=== PATIENT | male | born 1955 | race Caucasian/White ===

== ENCOUNTER 2018-08-18 16:40 | Emergency (ER) | payer SELFPAY ==
[~2018-08-18] VITALS: Ht 175.3 cm; Wt 79.4 kg
[~2018-08-18 16:40] MED LIST: AMLO10TA6 PO; AMOX-358 PO; APIX5TAB2 PO; ASPI-892 PO; CLIN300C11 PO; IPRA3AMP31 INH; LISI10TA2 PO; METO25TA2 PO; NAPR1TAB25 PO; NAPR220T76 PO; NEBU1EAC10 MC; NEBU1EAC2 MC; OXYC-464 PO; RT-ALBUINH IH; Zolpidem Tartrate PO
--- OUTSIDE RECORDS SUMMARY | 2018-08-18 16:45 | XMS REPORT ---
Author Author BEA WAHL Organization [facility] Address [address] [place] [address] Care Team Providers Care Loom Doffer Name Role Phone BEA WAHL Unavailable PROBLEMS Type Condition ICD9-CM Code [id number] Code Onset Dates Condition Status SNOMED Code Problem Dupuytren's contracture of right hand M72.0 Active [id number] Problem Dupuytren contracture M72.0 Active 841200989 Problem Chronic atrial fibrillation I48.2 Active 385578329 Problem Alcoholism F10.20 Active 9805289 Problem Essential hypertension I10 Active 96919289 Problem Chronic obstructive pulmonary disease, unspecified COPD type J44.9 Active 84703897 ALLERGIES Substance Reaction Event Type Date Status Iodine rash Drug Allergy Jul, Active ENCOUNTERS Encounter Location Date Diagnosis [facility] [address] [place] [address] [phone] -[phone] Jul, [facility] [id number] [place] [address] 22893- 6692 December, Dupuytren's contracture of right hand M72.0 [facility] [address] [place] [address] 46856- 0150 Oct, Dupuytren's contracture of right hand M72.0 [facility] [address] [place] [address] 65303- 2438 Sep, Dupuytren contracture M72.0 [facility] [id number] [place] [address] 04549- 3071 Jul, [facility] [address] [place] [address] 95457- 5553 Jul, Essential hypertension I10 and Chronic obstructive pulmonary disease, unspecified COPD type J44.9 [facility] [address] [address] Jun, [facility] [id number] [place] [address] 55103 -3008 December, Essential hypertension with goal blood pressure less than 130/85 I10 ; Sore throat J02.9 ; Wheezing R06.2 and Pneumonia of right upper lobe due to infectious organism J18.1 [place] [id number] [place] [address] 29273- 1839 Apr, [place] [id number] [place] [address] 73825- 0110 Apr, Pulmonary emphysema, unspecified emphysema type J43.9 ; Essential hypertension with goal blood pressure less than 130/85 I10 and Tobacco abuse counseling Z71.6 [place] [id number] [place] [address] 15885- 6470 Apr, [facility] [id number] [place] [address] 76920- 6628 December, Chronic atrial fibrillation I48.2 ; Essential hypertension with goal blood pressure less than 130/85 I10 ; Alcoholism F10.20 ; Lung mass R91.8 and Chronic bronchitis, unspecified chronic bronchitis type J42 [place] [id number] [place] [address] 22463- 0954 Nov, [facility] [id number] [place] [address] 35232- 5921 Mar, Petechiae or ecchymoses 782.7 [place] [id number] [place] [address] 33066- 3520 Feb, Adjustment disorder with depressed mood 309.0 and No condition on [place] II V71.09 [place] [id number] [place] [address] 46160- 5090 Jan, Essential hypertension 401.9 ; Depression 311 and Anxiety 300.[address] [place] [address]- [address] 10 Jan, 2015 Major depressive disorder, recurrent episode, moderate 296.32 ; Anxiety state, unspecified 300.00 and Alcohol abuse 305.00 IMMUNIZATIONS No Known Immunizations SOCIAL HISTORY Never Assessed REASON FOR VISIT Right Shoulder Pain x3 weeks JStrasserRN PLAN OF CARE VITAL SIGNS Height 69.0 in 2018-07-12 Weight 185.0 lbs 2018-07-12 Temperature 97.7 degrees Fahrenheit 2018-07-12 Heart Rate 68 bpm 2018-07-12 Respiratory Rate 20 2018-07-12 BMI 27.32 kg/m2 2018-07-12 Blood pressure systolic 100 mmHg 2018-07-12 Blood pressure diastolic 64 mmHg 2018-07-12 MEDICATIONS Medication Instructions Dosage Frequency Start Date End Date Duration Status Lisinopril 10 mg Orally Once a day 1 tablet 24h Active Aleve 220 MG Orally 2 times a day 2 tablet as needed 12h Active Norvasc 10 mg Orally Once a day 1 tablet 24h Active RESULTS No Results PROCEDURES No Known procedures INSTRUCTIONS MEDICATIONS ADMINISTERED No Known Medications MEDICAL (GENERAL) HISTORY Type Description Date Medical History A-fib Medical History hypertension Medical History left ventricular hypertrophy Medical History palptiations Medical History history of alcoholism Medical History pneumonia Medical History COPD- Via VC Surgical History TKR ACL Surgical History Scoped right knee 1989 Surgical History cyst on tendon right wrist Hospitalization History attempted to committ sucide via alisa 09/2014 Hospitalization History Right middle upper lobe cavitary lesion with abscess ( 11/10/15-11/15/15) 11/10/2015 Hospitalization History COPD exacerbation, Hypoxia 05/01/2016
--- OUTSIDE RECORDS SUMMARY | 2018-08-18 16:45 | XMS REPORT ---
Author Author CASSIE HALL Organization [facility] Address [address] [place] [address] Care Team Providers Care Insurance Claims Assistant Name Role Phone CASSIE HALL Unavailable PROBLEMS Type Condition ICD9-CM Code KDF77-TB Code Onset Dates Condition Status SNOMED Code Problem Dupuytren's contracture of right hand M72.0 Active [id number] Problem Dupuytren contracture M72.0 Active 437357175 Problem Chronic atrial fibrillation I48.2 Active 935953990 Problem Alcoholism F10.20 Active 6800130 Problem Essential hypertension I10 Active 85588958 Problem Chronic obstructive pulmonary disease, unspecified COPD type J44.9 Active 92369604 ALLERGIES Substance Reaction Event Type Date Status Iodine rash Drug Allergy Oct, Active ENCOUNTERS Encounter Location Date Diagnosis [place] [id number] [place] [address] 84745- 2439 December, Dupuytren's contracture of right hand M72.0 [place] [id number] [place] [address] 08352- 8631 Oct, Dupuytren's contracture of right hand M72.0 [facility] [id number] [place] [address] 70756- 6995 Sep, Dupuytren contracture M72.0 [facility] [id number] [place] [address] 91496- 4417 Jul, [facility] [id number] [place] [address] 67377- 7151 Jul, Essential hypertension I10 and Chronic obstructive pulmonary disease, unspecified COPD type J44.9 [facility] [id number] [place] [address] 54119- 7423 Jun, [facility] [address] [address] December, Essential hypertension with goal blood pressure less than 130/85 I10 ; Sore throat J02.9 ; Wheezing R06.2 and Pneumonia of right upper lobe due to infectious organism J18.1 [facility] [id number] [place] [address] 61844- 4298 Apr, [place] [address] 93767- 3168 Apr, Pulmonary emphysema, unspecified emphysema type J43.9 ; Essential hypertension with goal blood pressure less than 130/85 I10 and Tobacco abuse counseling Z71.6 [place] [id number] [place] [address] 13491- 3095 Apr, [place] [id number] [place] [address] 14533- 8615 December, Chronic atrial fibrillation I48.2 ; Essential hypertension with goal blood pressure less than 130/85 I10 ; Alcoholism F10.20 ; Lung mass R91.8 and Chronic bronchitis, unspecified chronic bronchitis type J42 [place] [id number] [place] [address] 22735- 1885 Nov, [place] [id number] [place] [address] 40351- 3717 Mar, Petechiae or ecchymoses 782.7 [place] [address] 55267- 9811 Feb, Adjustment disorder with depressed mood 309.0 and No condition on [place] II V71.09 [place] [id number] [place] [address] 05534- 8437 Jan, Essential hypertension 401.9 ; Depression 311 and Anxiety 300.00 [place] [id number] [place] [address] 39996- 3894 Jan, Major depressive disorder, recurrent episode, moderate 296.32 ; Anxiety state, unspecified 300.00 and Alcohol abuse 305.00 IMMUNIZATIONS No Known Immunizations SOCIAL HISTORY Never Assessed REASON FOR VISIT Cyst removal f/u-----DBennettRN PLAN OF CARE VITAL SIGNS Height 69.0 in 2017-11-04 Weight 172 lbs 2017-11-04 Temperature 97.7 degrees Fahrenheit 2017-11-04 Heart Rate 80 bpm 2017-11-04 Respiratory Rate 20 2017-11-04 BMI 25.40 kg/m2 2017-11-04 Blood pressure systolic 102 mmHg 2017-11-04 Blood pressure diastolic 64 mmHg 2017-11-04 MEDICATIONS Medication Instructions Dosage Frequency Start Date End Date Duration Status Advair Diskus 500-50 MCG/DOSE Inhalation Twice a day 1 puff 12h Jul, Not-Taking Aleve 220 MG Orally 2 times a day 2 tablet as needed 12h Active Norvasc 10 mg Orally Once a day 1 tablet 24h Active Lisinopril 10 mg Orally Once a day 1 tablet 24h Active Ventolin HFA 108 (90 Base) MCG/ACT Inhalation every 6 hrs 2 puffs as needed 6h Jul, Not-Taking RESULTS No Results PROCEDURES No Known procedures [...]
--- OUTSIDE RECORDS SUMMARY | 2018-08-18 16:45 | XMS REPORT ---
Author Author LATOSHA VINCENT [facility] Address [address] [place] [address] Care Team Providers Care Clinical Documentation Clerk Name Role Phone LATOSHA VINCENT Unavailable PROBLEMS Type Condition ICD9-CM Code MPP41-PN Code Onset Dates Condition Status SNOMED Code Problem Chronic atrial fibrillation I48.2 Active 203317288 Problem Essential hypertension with goal blood pressure less than 130/85 I10 Active 39775748 Problem Alcoholism F10.20 Active 3754585 Problem Other iron deficiency anemia D50.8 Active 36053002 ALLERGIES Unknown Allergies SOCIAL HISTORY No smoking Hx information available PLAN OF CARE VITAL SIGNS MEDICATIONS Medication Instructions Dosage Frequency Start Date End Date Duration Status Lisinopril 10 mg Orally Once a day 1 tablet 24h Active Aleve 220 MG Orally 2 times a day 2 tablet as needed 12h Active Norvasc 10 mg Orally Once a day 1 tablet 24h Active RESULTS No Results PROCEDURES No Known procedures IMMUNIZATIONS No Known Immunizations
--- OUTSIDE RECORDS SUMMARY | 2018-08-18 16:45 | XMS REPORT ---
Author Author LEÓN TROTTER [facility] Address [address] [place] [address] Care Team Providers Care Manager Budget Name Role Phone LEÓN TROTTER Unavailable PROBLEMS Type Condition ICD9-CM Code ZHU13-UU Code Onset Dates Condition Status SNOMED Code Problem Dupuytren's contracture of right hand M72.0 Active 17465078173897809 Problem Dupuytren contracture M72.0 Active 749826992 Problem Chronic atrial fibrillation I48.2 Active 464677228 Problem Alcoholism F10.20 Active 4333804 Problem Essential hypertension I10 Active 98742454 Problem Chronic obstructive pulmonary disease, unspecified COPD type J44.9 Active 20091076 ALLERGIES No Information ENCOUNTERS Encounter Location Date Diagnosis [facility] [id number] [place] [address] 29731- 5812 December, Dupuytren's contracture of right hand M72.0 [facility] [id number] [place] [address] 66821- 2603 Oct, Dupuytren's contracture of right hand M72.0 [facility] [id number] [place] [address] 98656- 7394 Sep, Dupuytren contracture M72.0 [facility] [id number] [place] [address] 17058- 9898 Jul, [facility] [address] 78460- 5051 Jul, Essential hypertension I10 and Chronic obstructive pulmonary disease, unspecified COPD type J44.9 [facility] [id number] [place] [address] 82559- 5026 Jun, [facility] [address] [place] [address] December, Essential hypertension with goal blood pressure less than 130/85 I10 ; Sore throat J02.9 ; Wheezing R06.2 and Pneumonia of right upper lobe due to infectious organism J18.1 [place] [id number] [place] [address] 47257- 5831 Apr, [place] [address] 32680- 6067 Apr, Pulmonary emphysema, unspecified emphysema type J43.9 ; Essential hypertension with goal blood pressure less than 130/85 I10 and Tobacco abuse counseling Z71.6 [place] [id number] [place] [address] 69816- 8699 Apr, [place] [id number] [place] [address] 72732- 6377 December, Chronic atrial fibrillation I48.2 ; Essential hypertension with goal blood pressure less than 130/85 I10 ; Alcoholism F10.20 ; Lung mass R91.8 and Chronic bronchitis, unspecified chronic bronchitis type J42 [place] [id number] [place] [address] 42742- 5729 Nov, [place] [id number] [place] [address] 42070- 4985 Mar, Petechiae or ecchymoses 782.7 [place] [address] 95642- 8512 Feb, Adjustment disorder with depressed mood 309.0 and No condition on [place] II V71.09 [place] [id number] [place] [address] 54263- 1181 Jan, Essential hypertension 401.9 ; Depression 311 and Anxiety 300.00 [place] [id number] [place] [address] 22091- 8960 10 Jan, 2015 Major depressive disorder, recurrent episode, moderate 296.32 ; Anxiety state, unspecified 300.00 and Alcohol abuse 305.00 IMMUNIZATIONS No Known Immunizations SOCIAL HISTORY Never Assessed REASON FOR VISIT Dupuytren's Contracture of right hand-no manda Walls RN PLAN OF CARE Activity Details Follow Up prn Reason: VITAL SIGNS Height 69.0 in 2017-12-10 Blood pressure systolic 110 mmHg 2017-12-10 Blood pressure diastolic 68 mmHg 2017-12-10 MEDICATIONS Unknown Medications RESULTS No Results PROCEDURES No Known procedures [...]
--- OUTSIDE RECORDS SUMMARY | 2018-08-18 16:45 | XMS REPORT ---
Author Author CASSIE HALL Organization [facility] Address [address] [place] [address] Care Team Providers Care Group Segment Consultant Name Role Phone CASSIE HALL Unavailable PROBLEMS Type Condition ICD9-CM Code JAA93-XC Code Onset Dates Condition Status SNOMED Code Problem Dupuytren's contracture of right hand M72.0 Active 02703652466516019 Problem Dupuytren contracture M72.0 Active 484258577 Problem Chronic atrial fibrillation I48.2 Active 736109247 Problem Alcoholism F10.20 Active 8354878 Problem Essential hypertension I10 Active 63433508 Problem Chronic obstructive pulmonary disease, unspecified COPD type J44.9 Active 63982271 ALLERGIES Substance Reaction Event Type Date Status Iodine rash Drug Allergy Sep, Active ENCOUNTERS Encounter Location Date Diagnosis [place] [id number] [place] [address] 43821- 9811 December, Dupuytren's contracture of right hand M72.0 [place] [id number] [place] [address] 02609- 3673 Oct, Dupuytren's contracture of right hand M72.0 [facility] [id number] [place] [address] 47864- 9354 Sep, Dupuytren contracture M72.0 [facility] [id number] [place] [address] 60995- 2663 Jul, [facility] [id number] [place] [address] 04777- 4782 Jul, Essential hypertension I10 and Chronic obstructive pulmonary disease, unspecified COPD type J44.9 [facility] [id number] [place] [address] 84269- 6961 Jun, [facility] [address] [place] [address] 95006 -6260 December, Essential hypertension with goal blood pressure less than 130/85 I10 ; Sore throat J02.9 ; Wheezing R06.2 and Pneumonia of right upper lobe due to infectious organism J18.1 [facility] [address] [place] [address] 80807- 3297 Apr, [place] [address] 91285- 0182 Apr, Pulmonary emphysema, unspecified emphysema type J43.9 ; Essential hypertension with goal blood pressure less than 130/85 I10 and Tobacco abuse counseling Z71.6 [place] [address] [place] [address] 23706- 2171 Apr, [place] [address] [place] [address] 42089- 6332 December, Chronic atrial fibrillation I48.2 ; Essential hypertension with goal blood pressure less than 130/85 I10 ; Alcoholism F10.20 ; Lung mass R91.8 and Chronic bronchitis, unspecified chronic bronchitis type J42 [place] [address] [place] [address] 69730- 0265 Nov, [place] [address] [place] [address] 06031- 0022 Mar, Petechiae or ecchymoses 782.7 [place] [address] 41235- 8005 Feb, Adjustment disorder with depressed mood 309.0 and No condition on [place] II V71.[address] 13435- 5468 Jan, Essential hypertension 401.9 ; Depression 311 and Anxiety 300.00 [place] [address] [place] [address] 60098- 3512 Jan, Major depressive disorder, recurrent episode, moderate 296.32 ; Anxiety state, unspecified 300.00 and Alcohol abuse 305.00 IMMUNIZATIONS No Known Immunizations SOCIAL HISTORY Never Assessed REASON FOR VISIT Cyst removal x2 from the right hand-Olaf MARTIN PLAN OF CARE Activity Details Follow Up 4 Weeks Reason:contracture injection VITAL SIGNS Height 69.0 in 2017-09-22 Weight 171.6 lbs 2017-09-22 Temperature 98.1 degrees Fahrenheit 2017-09-22 Heart Rate 78 bpm 2017-09-22 Respiratory Rate 20 2017-09-22 BMI 25.34 kg/m2 2017-09-22 Blood pressure systolic 98 mmHg 2017-09-22 Blood pressure diastolic 62 mmHg 2017-09-22 MEDICATIONS Medication Instructions Dosage Frequency Start Date End Date Duration Status Ventolin HFA 108 (90 Base) MCG/ACT Inhalation every 6 hrs 2 puffs as needed 6h Jul, Not-Taking Aleve 220 MG Orally 2 times a day 2 tablet as needed 12h Active Lisinopril 10 mg Orally Once a day 1 tablet 24h Active Norvasc 10 mg Orally Once a day 1 tablet 24h Active Advair Diskus 500-50 MCG/DOSE Inhalation Twice a day 1 puff 12h Jul, Not-Taking RESULTS No Results PROCEDURES No [...]
--- OUTSIDE RECORDS SUMMARY | 2018-08-18 16:46 | XMS REPORT ---
Author Author BEA WAHL Organization [facility] Address [address] [place] [address] Care Team Providers Care Hat Blocking Machine Operator Name Role Phone BEA WAHL Unavailable PROBLEMS Type Condition ICD9-CM Code GAE46-LB Code Onset Dates Condition Status SNOMED Code Problem Dupuytren's contracture of right hand M72.0 Active 53461401399192319 Problem Dupuytren contracture M72.0 Active 578542189 Problem Chronic atrial fibrillation I48.2 Active 464057212 Problem Alcoholism F10.20 Active 3444041 Problem Essential hypertension I10 Active 84343646 Problem Chronic obstructive pulmonary disease, unspecified COPD type J44.9 Active 98345450 ALLERGIES Substance Reaction Event Type Date Status Iodine rash Drug Allergy Jul, Active ENCOUNTERS Encounter Location Date Diagnosis [place] [id number] [place] [address] 62531- 0286 December, Dupuytren's contracture of right hand M72.0 [facility] [id number] [place] [address] 66849- 1455 Oct, Dupuytren's contracture of right hand M72.0 [facility] [id number] [place] [address] 48939- 6466 Sep, Dupuytren contracture M72.0 [facility] [address] [place] [address] 99210- 5524 Jul, [facility] [id number] [place] [address] 50728- 0194 Jul, Essential hypertension I10 and Chronic obstructive pulmonary disease, unspecified COPD type J44.9 [facility] [id number] [place] [address] 98839- 5990 Jun, [facility] [address] [place] [address] 96997 -0118 December, Essential hypertension with goal blood pressure less than 130/85 I10 ; Sore throat J02.9 ; Wheezing R06.2 and Pneumonia of right upper lobe due to infectious organism J18.1 [facility] [id number] [place] [address] 99748- 9893 Apr, [place] [address] 32999- 8681 Apr, Pulmonary emphysema, unspecified emphysema type J43.9 ; Essential hypertension with goal blood pressure less than 130/85 I10 and Tobacco abuse counseling Z71.6 [place] [id number] [place] [address] 67612- 9680 Apr, [place] [address] 74428- 8788 December, Chronic atrial fibrillation I48.2 ; Essential hypertension with goal blood pressure less than 130/85 I10 ; Alcoholism F10.20 ; Lung mass R91.8 and Chronic bronchitis, unspecified chronic bronchitis type J42 [place] [id number] [place] [address] 14956- 6323 Nov, [place] [id number] [place] [address] 18968- 8616 Mar, Petechiae or ecchymoses 782.7 [place] [id number] [place] [address] 22051- 8425 Feb, Adjustment disorder with depressed mood 309.0 and No condition on [address] V71.[address] 83098- 0297 Jan, Essential hypertension 401.9 ; Depression 311 and Anxiety 300.00 [place] [id number] [place] [address] 92103- 2717 Jan, Major depressive disorder, recurrent episode, moderate 296.32 ; Anxiety state, unspecified 300.00 and Alcohol abuse 305.00 IMMUNIZATIONS No Known Immunizations SOCIAL HISTORY Never Assessed REASON FOR VISIT Transition of Care-Olaf MARTIN, PT is in need of medication refills and PT has a cyst on his right pinky PLAN OF CARE Activity Details Follow Up 4 Months Reason: VITAL SIGNS Height 69.0 in 2017-07-23 Weight 175.5 lbs 2017-07-23 Temperature 98.3 degrees Fahrenheit 2017-07-23 Heart Rate 88 bpm 2017-07-23 Respiratory Rate 20 2017-07-23 BMI 25.91 kg/m2 2017-07-23 Blood pressure systolic 124 mmHg 2017-07-23 Blood pressure diastolic 96 mmHg 2017-07-23 MEDICATIONS Medication Instructions Dosage Frequency Start Date End Date Duration Status Aleve 220 MG Orally 2 times a day 2 tablet as needed 12h Active Lisinopril 10 mg Orally Once a day 1 tablet 24h Active Norvasc 10 mg Orally Once a day 1 tablet 24h Active RESULTS No Results PROCEDURES Procedure Date Ordered Result Body Site COMPREHEN METABOLIC PANEL Jul 23, 2017 VENIPUNCT, ROUTINE* Jul 23, 2017 INSTRUCTIONS MEDICATIONS ADMINISTERED No Known Medications MEDICAL [...]
--- OUTSIDE RECORDS SUMMARY | 2018-08-18 16:46 | XMS REPORT ---
Author Author POLI Smith Organization [facility] Address [address] [place] [address] Care Team Providers Care Realtime Captioner Name Role Phone herbertADIEL POLI Unavailable PROBLEMS Type Condition ICD9-CM Code [id number] Code Onset Dates Condition Status SNOMED Code Problem Dupuytren's contracture of right hand M72.0 Active 70534066075581651 Problem Dupuytren contracture M72.0 Active 248930913 Problem Chronic atrial fibrillation I48.2 Active 126015073 Problem Alcoholism F10.20 Active 0113311 Problem Essential hypertension I10 Active 67136665 Problem Chronic obstructive pulmonary disease, unspecified COPD type J44.9 Active 54309243 ALLERGIES No Information ENCOUNTERS Encounter Location Date Diagnosis [place] [id number] [place] [phone] December, Dupuytren's contracture of right hand M72.0 [place] [id number] [place] [address]64- 1838 Oct, Dupuytren's contracture of right hand M72.0 [facility] [id number] [place] [address] 31996- 50[address] Sep, Dupuytren contracture M72.0 [facility] [id number] [place] [address]70- 1208 Jul, [facility] [id number] [place] [address] 09053- 3606 Jul, Essential hypertension I10 and Chronic obstructive pulmonary disease, unspecified COPD type J44.9 [facility] [id number] [place] [address] 25749- 9545 Jun, [facility] [address] [place] [address] December, Essential hypertension with goal blood pressure less than 130/85 I10 ; Sore throat J02.9 ; Wheezing R06.2 and Pneumonia of right upper lobe due to infectious organism J18.1 [facility] [id number] [place] [address] 98303- 6791 Apr, [place] [address] [address] Apr, Pulmonary emphysema, unspecified emphysema type J43.9 ; Essential hypertension with goal blood pressure less than 130/85 I10 and Tobacco abuse counseling Z71.6 [place] [id number] [place] [address] 44597- 4202 Apr, [place] [id number] [place] [address] 13452- 7646 December, Chronic atrial fibrillation I48.2 ; Essential hypertension with goal blood pressure less than 130/85 I10 ; Alcoholism F10.20 ; Lung mass R91.8 and Chronic bronchitis, unspecified chronic bronchitis type J42 [place] [id number] [place] [address] 09420- 2853 Nov, [place] [id number] [place] [address] 59901- 5493 Mar, Petechiae or ecchymoses 782.7 [place] [address] [address] Feb, Adjustment disorder with depressed mood 309.0 and No condition on [place] II V71.09 [place] [id number] [place] [address] 29289- 5903 Jan, Essential hypertension 401.9 ; Depression 311 and Anxiety 300.00 [place] [id number] [place] [address] 39799- 3277 Jan, Major depressive disorder, recurrent episode, moderate 296.32 ; Anxiety state, unspecified 300.00 and Alcohol abuse 305.00 IMMUNIZATIONS No Known Immunizations SOCIAL HISTORY Never Assessed REASON FOR VISIT Oxygen PLAN OF CARE VITAL SIGNS MEDICATIONS Unknown Medications RESULTS No Results PROCEDURES [...]
--- OUTSIDE RECORDS SUMMARY | 2018-08-18 16:46 | XMS REPORT ---
Author Author LATOSHA VINCENT [facility] Address [address] [place] [address] Care Team Providers Care Box Folding Machine Operator Name Role Phone LATOSHA VINCENT Unavailable PROBLEMS Type Condition ICD9-CM Code [id number] Code Onset Dates Condition Status SNOMED Code Problem Chronic atrial fibrillation I48.2 Active 754886208 Problem Essential hypertension with goal blood pressure less than 130/85 I10 Active 10121745 Problem Alcoholism F10.20 Active 8754379 Problem Other iron deficiency anemia D50.8 Active 93505801 ALLERGIES Unknown Allergies SOCIAL HISTORY No smoking Hx information available PLAN OF CARE VITAL SIGNS MEDICATIONS Unknown Medications RESULTS No Results PROCEDURES No Known procedures IMMUNIZATIONS No Known Immunizations
--- OUTSIDE RECORDS SUMMARY | 2018-08-18 16:46 | XMS REPORT ---
Author BEA Ortiz Organization [employer] Address Unknown Phone Unavailable Care Team Providers Care Linderman Machine Operator Name Role Phone BEA WAHL CP Unavailable Allergies, Adverse Reactions, Alerts Substance Reaction Event Type Iodine rash Drug Allergy Problems Problem Type Condition ICD-9 Code Onset Dates Condition Status Problem Essential hypertension 401.9 Active Problem Malignant essential hypertension 401.0 Active Problem Benign essential hypertension 401.1 Active Assessment Petechiae or ecchymoses 782.7 Active Medications Medication Code System Code Instructions Start Date End Date Status Dosage Norvasc [facility] [address]-24 10 MG Orally Once a day 1 tablet Aleve [facility] [address]-17 220 MG Orally prn 1 tablet as needed Lisinopril [facility] [address]-34 10 MG Orally Once a day 1 tablet Tramadol HCl [facility] [address]-88 50 MG Orally every 6 hrs Apr 06, 2015 1-2 Procedures Procedure Coding System Code Date Office Visit, Est Pt., Level 2 CPT-4 12118 Apr 06, 2015 Vital Signs Date/Time: Apr 06, 2015 Temperature 98.8 F Weight 161.1 lbs Height 69.0 in BMI 23.79 Index Blood Pressure Diastolic 84 mmHg Blood Pressure Systolic 140 mmHg Cardiac Monitoring Heart Rate 68 bpm Results No Known Results Summary Purpose [employer] Submission
--- OUTSIDE RECORDS SUMMARY | 2018-08-18 16:46 | XMS REPORT ---
Author POLI Guerra [facility] [employer] Address Unknown Phone Unavailable Care Team Providers Care Space Technologist Name Role Phone POLI CHIN Unavailable Allergies No Known Allergies Problems Problem Type Condition Code Onset Dates Condition Status Problem Essential hypertension 401.9 Active Problem Malignant essential hypertension 401.0 Active Problem Benign essential hypertension 401.1 Active Medications Medication Code System Code Instructions Start Date End Date Status Dosage Nebulizer/Adult Mask [facility] [address] November 15, 2015 not defined Oxycodone-Acetaminophen [facility] [address]-82 7.5-325 MG Orally every 4 hrs November 15, 2015 1 tablet as needed Aleve [facility] [address]-35 220 MG Orally 2 times a day 2 tablet as needed Ipratropium-Albuterol [facility] [address]-96 0.5-2.5 (3) MG/3ML Inhalation 3 times a day November 15, 2015 3 ml Clindamycin HCl [facility] [address]-18 300 MG Orally 3 times a day for 5 weeks November 15, 2015 1 capsule Results No Known Results Summary Purpose [employer] Submission
--- OUTSIDE RECORDS SUMMARY | 2018-08-18 16:46 | XMS REPORT ---
Author Author BEA WAHL Organization [facility] Address [address] [place] [address] Care Team Providers Care Cafe Site Attendant Name Role Phone BEA WAHL Unavailable PROBLEMS Type Condition ICD9-CM Code [id number] Code Onset Dates Condition Status SNOMED Code Problem Dupuytren's contracture of right hand M72.0 Active [id number] Problem Dupuytren contracture M72.0 Active 917474939 Problem Chronic atrial fibrillation I48.2 Active 440621472 Problem Alcoholism F10.20 Active 4844333 Problem Essential hypertension I10 Active 87836691 Problem Chronic obstructive pulmonary disease, unspecified COPD type J44.9 Active 45293825 ALLERGIES No Information ENCOUNTERS Encounter Location Date Diagnosis [facility] [id number] [place] [address]01[address] December, Dupuytren's contracture of right hand M72.0 [facility] [id number] [place] [address] 40915- 2373 Oct, Dupuytren's contracture of right hand M72.0 [facility] [id number] [place] [address] 01471- 4526 Sep, Dupuytren contracture M72.0 [facility] [id number] [place] [address] 66689- 9533 Jul, [facility] [address] [address] Jul, Essential hypertension I10 and Chronic obstructive pulmonary disease, unspecified COPD type J44.9 [facility] [id number] [place] [address] 50[address]- [address] Jun, [facility] [address] [place] [address] December, Essential hypertension with goal blood pressure less than 130/85 I10 ; Sore throat J02.9 ; Wheezing R06.2 and Pneumonia of right upper lobe due to infectious organism J18.1 [place] [id number] [place] [address] 03081- 3096 Apr, [place] [address] [address] Apr, Pulmonary emphysema, unspecified emphysema type J43.9 ; Essential hypertension with goal blood pressure less than 130/85 I10 and Tobacco abuse counseling Z71.6 [place] [id number] [place] [address] 46360- 0951 Apr, [place] [id number] [place] [address] 94133- 3208 December, Chronic atrial fibrillation I48.2 ; Essential hypertension with goal blood pressure less than 130/85 I10 ; Alcoholism F10.20 ; Lung mass R91.8 and Chronic bronchitis, unspecified chronic bronchitis type J42 [place] [id number] [place] [address] 68267- [address] Nov, [place] [id number] [place] [address] 87033- [address] Mar, Petechiae or ecchymoses 782.7 [place] [address] [address]- [address] Feb, Adjustment disorder with depressed mood 309.0 and No condition on [place] II V71.09 [place] [id number] [place] [address] 16638- 4038 Jan, Essential hypertension 401.9 ; Depression 311 and Anxiety 300.00 [place] [id number] [place] [address] 60203- 7[address] 10 Jan, 2015 Major depressive disorder, recurrent episode, moderate 296.32 ; Anxiety state, unspecified 300.00 and Alcohol abuse 305.00 IMMUNIZATIONS No Known Immunizations SOCIAL HISTORY Never Assessed REASON FOR VISIT Pals PLAN OF CARE VITAL SIGNS MEDICATIONS Medication Instructions Dosage Frequency Start Date End Date Duration Status Ventolin HFA 108 (90 Base) MCG/ACT Inhalation every 6 hrs 2 puffs as needed 6h Jul, Active Advair Diskus 500-50 MCG/DOSE Inhalation Twice a day 1 puff 12h Jul, Active RESULTS No Results PROCEDURES No Known [...]
--- OUTSIDE RECORDS SUMMARY | 2018-08-18 16:46 | XMS REPORT ---
Author Author AFIA ONEILL Organization [facility] Address [address] [place] [address] Care Team Providers Care Accounting Representative Name Role Phone AFIA ONEILL Unavailable PROBLEMS Type Condition ICD9-CM Code [id number] Code Onset Dates Condition Status SNOMED Code Problem Chronic atrial fibrillation I48.2 Active 651726989 Problem Essential hypertension with goal blood pressure less than 130/85 I10 Active 44737355 Assessment Pulmonary emphysema, unspecified emphysema type J43.9 Apr, Active 75353084 Assessment Tobacco abuse counseling Z71.6 Apr, Active 314030726 Problem Alcoholism F10.20 Active 2205333 Problem Other iron deficiency anemia D50.8 Active 78359133 ALLERGIES Substance Reaction Event Type Date Status Iodine rash Drug Allergy Apr, Active SOCIAL HISTORY No smoking Hx information available PLAN OF CARE VITAL SIGNS Height 69.0 in 2016-05-05 Weight 162.0 lbs 2016-05-05 Heart Rate 92 bpm 2016-05-05 Respiratory Rate 22 2016-05-05 Oximetry 95 % 2016-05-05 BMI 23.92 kg/m2 2016-05-05 Blood pressure systolic 150 mmHg 2016-05-05 Blood pressure diastolic 94 mmHg 2016-05-05 MEDICATIONS Medication Instructions Dosage Frequency Start Date End Date Duration Status Lisinopril 10 mg Orally Once a day 1 tablet 24h Active Aleve 220 MG Orally 2 times a day 2 tablet as needed 12h Active Norvasc 10 mg Orally Once a day 1 tablet 24h Active RESULTS No Results PROCEDURES Procedure Date Ordered Related Diagnosis Body Site Office Visit, Est Pt., Level 4 May 05, 2016 MEASURE BLOOD OXYGEN LEVEL May 05, 2016 IMMUNIZATIONS No Known Immunizations
--- OUTSIDE RECORDS SUMMARY | 2018-08-18 16:46 | XMS REPORT ---
Author Author SHIRLEY GARCIA Organization [facility] Address [address] [place] [address] Care Team Providers Care Souvenir And Novelty Maker Name Role Phone SHIRLEY GARCIA Unavailable PROBLEMS Type Condition ICD9-CM Code MJS74-SM Code Onset Dates Condition Status SNOMED Code Problem Chronic atrial fibrillation I48.2 Active 375283256 Problem Alcoholism F10.20 Active 7511610 Problem Other iron deficiency anemia D50.8 Active 62871599 Problem Essential hypertension with goal blood pressure less than 130/85 I10 Active 81114277 ALLERGIES Substance Reaction Event Type Date Status Iodine rash Drug Allergy December, Active SOCIAL HISTORY Never Assessed PLAN OF CARE Activity Details Follow Up prn Reason: Future/Pending Procedure NEBULIZER TREATMENT VITAL SIGNS Height 69.0 in 2016-12-30 Weight 178.2 lbs 2016-12-30 Temperature 97.5 degrees Fahrenheit 2016-12-30 Heart Rate 96 bpm 2016-12-30 Respiratory Rate 22 2016-12-30 Oximetry on 2.5L N/C:95 % 2016-12-30 BMI 26.31 kg/m2 2016-12-30 Blood pressure systolic 156 mmHg 2016-12-30 Blood pressure diastolic 94 mmHg 2016-12-30 MEDICATIONS Medication Instructions Dosage Frequency Start Date End Date Duration Status Levofloxacin 750 MG Orally Once a day 1 tablet 24h December, December, 7 days Active PredniSONE 20 MG Orally Once a day starting tomorrow 3 tablets x 3 days, 2 tablets x 3 days, 1 tablet x 3 days, 1/2 tablet x 4 days 24h December, Jan, 13 days Active Norvasc 10 mg Orally Once a day 1 tablet 24h Active Lisinopril 10 mg Orally Once a day 1 tablet 24h Active Aleve 220 MG Orally 2 times a day 2 tablet as needed 12h Active RESULTS Name Result Date Reference Range STREP A (IN HOUSE) 2017-02-05 STREP A negative Control + Lot # [id number] Exp date aug 28 Xray : Chest (IN HOUSE) 2016-12-30 PROCEDURES Procedure Date Ordered Result Body Site MEASURE BLOOD OXYGEN LEVEL December 30, 2016 CHEST X-RAY December 30, 2016 SOLUMEDROL (UP TO 125 MG) December 30, 2016 NEB/MDI RX INITIAL December 30, 2016 STREP A ASSAY W/OPTIC December 30, 2016 THER/PROPH/DIAG INJ, SC/IM December 30, 2016 IMMUNIZATIONS Vaccine Route Administration Date Status SOLUMEDROL (UP TO 125 MG) IM Intramuscular December 30, 2016 Administered MEDICAL (GENERAL) HISTORY Type Description Date Medical History A-fib Medical History hypertension Medical History left ventricular hypertrophy Medical History palptiations Medical History history of alcoholism Medical History pneumonia Surgical History TKR ACL 1969' Surgical History Scoped right knee 1989 Surgical History cyst on tendon right wrist Hospitalization History attempted to committ sucide via alisa 09/2014 Hospitalization History Right middle upper lobe cavitary lesion with abscess ( 11/10/15-11/15/15) 11/10/2015 Hospitalization History COPD exacerbation, Hypoxia 05/01/2016
--- OUTSIDE RECORDS SUMMARY | 2018-08-18 16:47 | XMS REPORT | Continuity of Care Document ---
Author Author [facility] Organization [facility] Address Unknown Phone Unavailable Allergies Active Description Code Type Severity Reaction Onset Reported/Identified Relationship to Patient Clinical Status Yes iodine [id number] Drug Allergy Unknown N/A 09/25/2005 Medications There is no data. Problems Date Dx Coded Attending Type Code Diagnosis Diagnosed By 2013 GLORIA PRADO Ot 805.00 FX CERVICAL VERT NOS-CL 2013 GLORIA PRADO Ot 850.5 CONCUSSION W COMA NOS 2013 GLORIA PRADO Ot 959.01 HEAD INJURY, NOS 2013 GLORIA PRADO Ot E000.8 OTHER EXTERNAL CAUSE STATUS 2013 GLORIA PRADO Ot E849.0 ACCIDENT IN HOME 2013 GLORIA PRADO Ot E888.9 FALL NOS 06/16/2014 BRANDEN BANDA MD Ot 303.91 ALCOH DEP NEC/NOS-CONTIN 06/16/2014 BRANDEN BANDA MD Ot 305.1 TOBACCO USE DISORDER 06/16/2014 BRANDEN BANDA MD Ot 397.0 TRICUSPID VALVE DISEASE 06/16/2014 BRANDEN BANDA MD Ot 401.9 HYPERTENSION NOS 06/16/2014 BRANDEN BANDA MD Ot 412 OLD MYOCARDIAL INFARCT 06/16/2014 BRANDEN BANDA MD Ot 414.01 CORONARY ATHEROSCLEROSIS OF [place] CORON 06/16/2014 BRANDEN BANDA MD Ot 424.0 MITRAL VALVE DISORDER 06/16/2014 BRANDEN BANDA MD Ot 427.31 ATRIAL FIBRILLATION 06/16/2014 BRANDEN BANDA MD Ot 716.90 ARTHROPATHY NOS-UNSPEC 06/16/2014 BRANDEN BANDA MD Ot 785.0 TACHYCARDIA NOS 06/16/2014 BRANDEN BANDA MD Ot 786.50 CHEST PAIN NOS 06/16/2014 BRANDEN BANDA MD Ot 799.02 HYPOXEMIA 07/31/2014 BRANDEN BANDA MD Ot 427.31 07/31/2014 BRANDEN BANDA MD Ot 785.1 07/31/2014 BRANDEN BANDA MD Ot 786.50 10/03/2014 Ot 305.1 TOBACCO USE DISORDER 10/03/2014 Ot 424.0 MITRAL VALVE DISORDER 10/03/2014 Ot 426.2 LEFT BB HEMIBLOCK 10/03/2014 Ot 427.89 CARDIAC DYSRHYTHMIAS NEC 10/03/2014 Ot 493.90 ASTHMA, UNSPECIFIED 10/03/2014 Ot 780.09 OTHER ALTERATION OF CONSCIOUSNESS 10/03/2014 Ot 963.0 POIS- ANTIALLRG/ANTIEMET 10/03/2014 Ot 980.0 TOXIC EFF ETHYL ALCOHOL 10/03/2014 Ot E950.4 SUICIDE-DRUG /MEDICIN NEC 10/03/2014 Ot E950.9 SUICIDE- SOLID/LIQUID NEC 09/13/2015 BRANDEN BANDA MD Ot 427.31 09/13/2015 BRANDEN BANDA MD Ot 785.1 09/13/2015 BRANDEN BANDA MD Ot 786.50 11/12/2015 BRANDEN BANDA MD Ot 427.31 11/12/2015 BRANDEN BANDA MD Ot 785.1 11/12/2015 BRANDEN BANDA MD Ot 786.50 11/12/2015 JORDANA HUNT, TELL B Ot R05 11/12/2015 GILLESPIE DO, CATARINA Ot D64.9 11/12/2015 GILLESPIE DO, CATARINA Ot E46 11/12/2015 GILLESPIE DO, CATARINA Ot E87.1 11/12/2015 GILLESPIE DO, CATARINA Ot F17.210 11/12/2015 GILLESPIE DO, CATARINA Ot I34.1 11/12/2015 GILLESPIE DO, CATARINA Ot J45.909 11/12/2015 GILLESPIE DO, CATARINA Ot R91.1 11/13/2015 GILLESPIE DO, CATARINA Ot D64.9 11/13/2015 GILLESPIE DO, CATARINA Ot E46 11/13/2015 GILLESPIE DO, CATARINA Ot E87.1 11/13/2015 GILLESPIE DO, CATARINA Ot F17.210 11/13/2015 GILLESPIE DO, CATARINA Ot I34.1 11/13/2015 GILLESPIE DO, CATARINA Ot J45.909 11/13/2015 GILLESPIE DO, CATARINA Ot R91.1 11/13/2015 GILLESPIE DO, CATARINA Ot D64.9 11/13/2015 GILLESPIE DO, CATARINA Ot E46 11/13/2015 GILLESPIE DO, CATARINA Ot E87.1 11/13/2015 GILLESPIE DO, CATARINA Ot F17.210 11/13/2015 GILLESPIE DO CATARINA Ot I34.1 11/13/2015 GILLESPIE DO CATARINA Ot J45.909 11/13/2015 GILLESPIE DO, CATARINA Ot R91.1 11/14/2015 GILLESPIE DO, CATARINA Ot D64.9 11/14/2015 GILLESPIE DO CATARINA Ot E46 11/14/2015 GILLESPIE DO CATARINA Ot E87.1 11/14/2015 GILLESPIE DO CATARINA Ot F17.210 11/14/2015 GILLESPIE DO CATARINA Ot I34.1 11/14/2015 GILLESPIE DO CATARINA Ot J45.909 11/14/2015 GILLESPIE DO CATARINA Ot R91.1 11/14/2015 GILLESPIE DO CATARINA Ot D64.9 ANEMIA, UNSPECIFIED 11/14/2015 GLILESPIE DO CATARINA Ot E46 UNSPECIFIED PROTEIN-CALORIE MALNUTRITION 11/14/2015 JOSE MIGUEL FERNANDEZ CATARINA Ot E87.1 HYPO-OSMOLALITY AND HYPONATREMIA 11/14/2015 JOSE MIGUEL FERNANDEZ CATARINA Ot F17.210 NICOTINE DEPENDENCE, CIGARETTES, UNCOMPL 11/14/2015 JOSE MIGUEL FERNANDEZ CATARINA Ot I34.1 NONRHEUMATIC MITRAL (VALVE) PROLAPSE 11/14/2015 JOSE MIGUEL FERNANDEZ CATARINA Ot J45.909 UNSPECIFIED ASTHMA, UNCOMPLICATED 11/14/2015 JOSE MIGUEL FERNANDEZ CATARINA Ot J85.2 ABSCESS OF LUNG WITHOUT PNEUMONIA 11/14/2015 DMITRY GILLESPIE DOI Ot K04.7 PERIAPICAL ABSCESS WITHOUT SINUS 11/14/2015 DMITRY GILLESPIE DOI Ot R06.00 DYSPNEA, UNSPECIFIED 11/14/2015 JOSE MIGUEL FERNANDEZ CATARINA Ot R91.1 12/05/2015 SHIRA LOPEZ DO Ot F17.200 NICOTINE DEPENDENCE, UNSPECIFIED, UNCOMP 12/05/2015 SHIRA LOPEZ DO Ot J15.8 PNEUMONIA DUE TO OTHER SPECIFIED BACTERI 12/05/2015 JESSICA SHIRA FERNANDEZ Ot J85.2 ABSCESS OF LUNG WITHOUT PNEUMONIA 12/05/2015 SHIRA LOPEZ DO Ot R06.00 DYSPNEA, UNSPECIFIED 12/10/2015 SHIRA LOPEZ DO Ot F17.200 NICOTINE DEPENDENCE, UNSPECIFIED, UNCOMP 12/10/2015 JESSICA DO SHIRA Matt Ot J15.8 PNEUMONIA DUE TO OTHER SPECIFIED BACTERI 12/10/2015 SHIRA LOPEZ DO Ot J85.2 ABSCESS OF LUNG WITHOUT PNEUMONIA 12/10/2015 SHIRA LOPEZ DO Ot R06.00 DYSPNEA, UNSPECIFIED 04/08/2016 SOLO HUNT, BRANDEN Jose Ot 427.31 ATRIAL FIBRILLATION 04/08/2016 BRANDEN BANDA MD Ot 785.1 PALPITATIONS 04/08/2016 BRANDEN BANDA MD Ot 786.50 CHEST PAIN NOS 04/08/2016 JORDANA HUNT, TELL B Ot R05 COUGH 04/08/2016 SHIRA LOPEZ DO Ot F17.200 NICOTINE DEPENDENCE, UNSPECIFIED, UNCOMP 04/08/2016 SHIRA LOPEZ DO Ot J15.8 PNEUMONIA DUE TO OTHER SPECIFIED BACTERI 04/08/2016 SHIRA LOPEZ DO Ot J85.2 ABSCESS OF LUNG WITHOUT PNEUMONIA 04/08/2016 SHIRA LOPEZ DO Ot R06.00 DYSPNEA, UNSPECIFIED 04/08/2016 SHIRA LOPEZ DO Ot F17.200 NICOTINE DEPENDENCE, UNSPECIFIED, UNCOMP 04/08/2016 SHIRA LOPEZ DO Ot J15.8 PNEUMONIA DUE TO OTHER SPECIFIED BACTERI 04/08/2016 SHIRA LOPEZ DO Ot J85.2 ABSCESS OF LUNG WITHOUT PNEUMONIA 04/08/2016 SHIRA LOPEZ DO Ot R06.00 DYSPNEA, UNSPECIFIED 04/08/2016 SOLO HUNT, BRANDEN Jose Ot 427.31 ATRIAL FIBRILLATION 04/08/2016 SOLO HUNT, BRANDEN Jose Ot 785.1 PALPITATIONS 04/08/2016 SOLO HUNT, BRANDEN Jose Ot 786.50 CHEST PAIN NOS 05/02/2016 BRANDEN BANDA MD Ot 427.31 ATRIAL FIBRILLATION 05/02/2016 BRANDEN BANDA MD Ot 785.1 PALPITATIONS 05/02/2016 SOLO HUNT, BRANDEN Jose Ot 786.50 CHEST PAIN NOS 05/02/2016 JORDANA HUNT, TELL B Ot R05 COUGH 05/02/2016 SHIRA LOPEZ DO Ot F17.200 NICOTINE DEPENDENCE, UNSPECIFIED, UNCOMP 05/02/2016 SHIRA LOPEZ DO Ot J15.8 PNEUMONIA DUE TO OTHER SPECIFIED BACTERI 05/02/2016 SHIRA LOPEZ DO Ot J85.2 ABSCESS OF LUNG WITHOUT PNEUMONIA 05/02/2016 SHIRA LOPEZ DO Ot R06.00 DYSPNEA, UNSPECIFIED 05/02/2016 AFIA COLEMAN MD, Ot F17.210 NICOTINE DEPENDENCE, CIGARETTES, UNCOMPL 05/02/2016 AFIA COLEMAN MD, Ot I25.10 ATHSCL HEART DISEASE OF [place] CORONARY 05/02/2016 AFIA COLEMAN MD Ot I48.91 UNSPECIFIED ATRIAL FIBRILLATION 05/02/2016 AFIA COLEMAN MD, Ot J44.1 CHRONIC OBSTRUCTIVE PULMONARY DISEASE W 05/02/2016 AFIA COLEMAN MD Ot R06.01 ORTHOPNEA 05/02/2016 AFIA COLEMAN MD Ot R09.02 HYPOXEMIA 05/02/2016 AFIA COLEMAN MD, Ot F17.210 NICOTINE DEPENDENCE, CIGARETTES, UNCOMPL 05/02/2016 AFIA COLEMAN MD, Ot I25.10 ATHSCL HEART DISEASE OF [place] CORONARY 05/02/2016 AFIA COLEMAN MD, Ot I48.91 UNSPECIFIED ATRIAL FIBRILLATION 05/02/2016 AFIA COLEMAN MD, Ot J44.1 CHRONIC OBSTRUCTIVE PULMONARY DISEASE W 05/02/2016 AFIA COLEMAN MD Ot R06.01 ORTHOPNEA 05/02/2016 AFIA COLEMAN MD, Ot R09.02 HYPOXEMIA Procedures Code Description Performed By Performed On 37.22 06/15/2014 88.53 06/15/2014 88.56 06/15/2014 [id number] 11/14/2015 [id number] 11/14/2015 [id number] 11/14/2015 Results Test Result Range Complete blood count (CBC) with automated white blood cell (WBC) differential - 05/01/16 16:02 Blood leukocytes automated count (number/volume) 8.2 10*3/uL 4.3-11.0 Blood erythrocytes automated count (number/volume) 4.65 10*6/uL 4.35-5.85 Venous blood hemoglobin measurement (mass/volume) 14.8 g/dL 13.3-17.7 Blood hematocrit (volume fraction) 45 % 40-54 Automated erythrocyte mean corpuscular volume 96 [foz_us] 80-99 Automated erythrocyte mean corpuscular hemoglobin (mass per erythrocyte) 32 pg 25-34 Automated erythrocyte mean corpuscular hemoglobin concentration measurement ( mass/volume) 33 g/dL 32-36 Automated erythrocyte distribution width ratio 17.2 % 10.0-14.5 Automated blood platelet count (count/volume) 223 10*3/uL 130-400 Automated blood platelet mean volume measurement 10.7 [foz_us] 7.4-10.4 Automated blood neutrophils/100 leukocytes 74 % 42-75 Automated blood lymphocytes/100 leukocytes 12 % 12-44 Blood monocytes/100 leukocytes 9 % 0-12 Automated blood eosinophils/100 leukocytes 4 % 0-10 Automated blood basophils/100 leukocytes 1 % 0-10 Blood neutrophils automated count (number/volume) 6.1 10*3 1.8-7.8 Blood lymphocytes automated count (number/volume) 1.0 10*3 1.0-4.0 Blood monocytes automated count (number/volume) 0.8 10*3 0.0-1.0 Automated eosinophil count 0.3 10*3/uL 0.0-0.3 Automated blood basophil count (count/volume) 0.0 10*3/uL 0.0-0.1 Comprehensive metabolic panel - 05/01/16 16:02 Serum or plasma sodium measurement (moles/volume) 134 mmol/L 135-145 Serum or plasma potassium measurement (moles/volume) 4.5 mmol/L 3.6-5.0 Serum or plasma chloride measurement (moles/volume) 97 mmol/L 98-107 Carbon dioxide 27 mmol/L 21-32 Serum or plasma anion gap determination (moles/volume) 10 mmol/L 5-14 Serum or plasma urea nitrogen measurement (mass/volume) 8 mg/dL 7-18 Serum or plasma creatinine measurement (mass/volume) 0.88 mg/dL 0.60-1.30 Serum or plasma urea nitrogen/creatinine mass ratio 9 NRG Serum or plasma creatinine measurement with calculation of estimated glomerular filtration rate > NRG Serum or plasma glucose measurement (mass/volume) 103 mg/dL 70-105 Serum or plasma calcium measurement (mass/volume) 9.0 mg/dL 8.5-10.1 Serum or plasma total bilirubin measurement (mass/volume) 0.3 mg/dL 0.1-1.0 Serum or plasma alkaline phosphatase measurement (enzymatic activity/volume) 84 U/L 40-136 Serum or plasma aspartate aminotransferase measurement (enzymatic activity/ volume) 28 U/L 5-34 Serum or plasma alanine aminotransferase measurement (enzymatic activity/volume ) 24 U/L 0-55 Serum or plasma protein measurement (mass/volume) 7.6 g/dL 6.4-8.2 Serum or plasma albumin measurement (mass/volume) 3.8 g/dL 3.2-4.5 Serum or plasma troponin i.cardiac measurement (mass/volume) - 05/01/16 16:02 Serum or plasma troponin i.cardiac measurement (mass/volume) < ng/ mL <0.30 Serum or plasma lithium measurement (moles/volume) - 05/01/16 16:02 BNP level 374.4 pg/mL <100.0 Bacterial blood culture - 05/01/16 16:02 Bacterial blood culture NG NRG Bacterial blood culture - 05/01/16 16:30 Bacterial blood culture NG NRG Complete urinalysis with reflex to culture - 05/01/16 19:42 Urine color determination YELLOW NRG Urine clarity determination CLEAR NRG Urine pH measurement by test strip 6.5 5-9 Specific gravity of urine by test strip 1.005 1.016- 1.022 Urine protein assay by test strip, semi-quantitative NEGATIVE NEGATIVE Urine glucose detection by automated test strip NEGATIVE NEGATIVE Erythrocytes detection in urine sediment by light microscopy NEGATIVE NEGATIVE Urine ketones detection by automated test strip NEGATIVE NEGATIVE Urine nitrite detection by test strip NEGATIVE NEGATIVE Urine total bilirubin detection by test strip NEGATIVE NEGATIVE Urine urobilinogen measurement by automated test strip (mass/volume) NORMAL NORMAL Urine leukocyte esterase detection by dipstick NEGATIVE NEGATIVE Automated urine sediment erythrocyte count by microscopy (number/high power field) NONE NRG Automated urine sediment leukocyte count by microscopy (number/high power field ) NONE NRG Bacteria detection in urine sediment by light microscopy NONE NRG Crystals detection in urine sediment by light microscopy NONE NRG Casts detection in urine sediment by light microscopy NONE NRG Mucus detection in urine sediment by light microscopy NEGATIVE NRG Complete urinalysis with reflex to culture NO NRG CMP - 07/23/17 15:50 GLUCOSE 88 mg/dL 65-99 UREA NITROGEN (BUN) 6 mg/dL 7-25 CREATININE 0.78 mg/dL 0.70-1.25 eGFR NON-AFR. [place] 97 mL/min/1.73m2 > OR=60 eGFR 112 mL/min/1.73m2 > OR=60 BUN/CREATININE RATIO 8 (calc) 6-22 SODIUM 138 mmol/L 135-146 POTASSIUM 4.0 mmol/L 3.5-5.3 CHLORIDE 98 mmol/L 98-110 CARBON DIOXIDE 29 mmol/L 20-31 CALCIUM 9.3 mg/dL 8.6-10.3 PROTEIN, TOTAL 7.8 g/dL 6.1-8.1 ALBUMIN 4.2 g/dL 3.6-5.1 GLOBULIN 3.6 g/dL (calc) 1.9-3.7 ALBUMIN/GLOBULIN RATIO 1.2 (calc) 1.0-2.5 BILIRUBIN, TOTAL 0.4 mg/dL 0.2-1.2 ALKALINE PHOSPHATASE 106 U/L 40-115 AST 16 U/L 10-35 ALT 11 U/L 9-46 Encounters ACCT No. Visit Date/Time Discharge Status Pt. Type Provider Facility Loc./Unit Complaint [id number] 05/01/2016 18:40:00 05/02/2016 16:10:00 DIS Inpatient VIRGINIA HUNT, AFIA Okeefe [facility] 4TH COPD EXACERBATION, HYPOXIA [id number] 12/04/2015 10:58:00 12/04/2015 23:59:59 CLS Outpatient SHIRA LOPEZ DO [facility] RAD PNEUMONIA,LUNG ABSCESS, SOB [id number] 11/10/2015 13:10:00 11/14/2015 14:35:00 DIS Inpatient CATARINA GILLESPIE DO [facility] 4TH PNEUMONIA WITH CAVITARY LUNG LESION RUL [id number] 09/13/2015 13:26:00 09/13/2015 23:59:59 CLS Outpatient JORDANA HUNT, HUNTER Hernandez [facility] RAD COUGH [id number] 07/10/2014 14:59:00 07/10/2014 23:59:59 CLS Outpatient SOLO HUNT, BRANDEN Jose [facility] CARD AFIB W/RVR,CP, PALPITATIONS [id number] 06/14/2014 22:36:00 06/16/2014 11:00:00 DIS Inpatient SOLO HUNT, BRANDEN Jose [facility] CSD NEW ONSET ATRIAL FIB WITH RVR; CHEST PAIN; HYPOXIA [id number] 10/15/2013 20:49:00 2013 00:05:00 DIS Emergency GLORIA PRADO [facility] ER FALL;NECK PAIN [id number] 10/02/2014 14:02:00 Document Registration [id number] 07/12/2018 10:25:00 07/12/2018 23:59:59 [facility] Outpatient VISH HUNT, BEA [facility] [id number] 07/23/2017 15:20:00 Document Registration
[2018-08-18] MEDS ORDERED: ASPIRIN 81 MG CHEW (CHILDREN'S ASA) PO ONE (17:00)
--- NOTE | 2018-08-18 17:03 | ED Cardiac General ---
History of Present Illness General Stated Complaint: "BACK PAIN IS SPREADING" History of Present Illness Date Seen by Provider: Aug 18, 2018 Time Seen by Provider: 16:50 Initial Comments 62-year-old male presents for 2 month history of right subscapular pain that radiates to anterior right chest wall. 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 He has been using icy hot and naproxen for his symptoms. He denies worsening of his symptoms today. He's had no diaphoresis, nausea or vomiting. He was diagnosed approximately 4 years ago with a an abscess in the right lung but with Pseudomonas. He reports full recovery from that and was doing well until 2 months ago. He does have a history of asthma and uses albuterol as needed. He denies using it for the last 2 weeks. he has smoked 2 packs of cigarettes a day for the majority of his life. He denies any recent weight loss, but he has had a poor appetite. He also has difficulty sleeping and will wake up in a sweat. Timing/Duration: intermittent Location: shoulder, back Activities at Onset: none Prior CP/Workup: no prior chest pain NTG SL DIE SIZER: No ASA po DIE SIZER: No Associated Systoms: No Cough; Loss of Appetite, Malaise, Shortness of Air, Weakness Allergies and Home Medications Allergies Coded Allergies: iodine (Verified Allergy, Unknown, 09/25/05) Home Medications Albuterol Sulfate 6.7 Gm Hfa.aer.ad, 6.7 GM IH Q4H PRN for WHEEZING Prescribed by: LATOSHA VINCENT on 05/02/16 1423 Amlodipine Besylate 10 Mg Tablet, 10 MG PO DAILY, (Reported) LAST FILLED #30 5-5-16 Hydrocodone Bit/Acetaminophen 1 Tab Tab, 1-2 EACH PO Q6H PRN for PAIN-MODERATE Prescribed by: ANDREW DONG on 08/18/18 1852 Lisinopril 10 Mg Tablet, 10 MG PO DAILY, (Reported) LAST RECEIVED #90 IN DECEMBER FROM THE REPOSITORY Naproxen Sodium 220 Mg Tablet, 440 MG PO BID, (Reported) TAKES 2 (220MG) TABLETS Patient Home Medication List Home Medication List Reviewed: Yes Review of Systems Review of Systems Constitutional: no symptoms reported, see HPI Respiratory: See HPI, Cough Cardiovascular: See HPI, Chest Pain All Other Systems Reviewed Negative Unless Noted: Yes Past Nurtala-Xscqvq-Oitqta Hx Past Med/Social Hx: Reviewed Nursing Past Med/Soc Hx, Reviewed and Corrections made Patient Social History Alcohol Beverage of Choice: Beer Smoking Status: Current Everyday Smoker (2 packs a day) Type Used: Cigarettes Recent Foreign Travel: No Contact w/Someone Who Travel: No Recent Hopitalizations: No Immunizations Up To Date Tetanus Booster (TDap): Unknown PED Vaccines UTD: Yes Seasonal Allergies Seasonal Allergies: No Past Medical History Orthopedic Asthma, Pneumonia, COPD Atrial Fibrillation, Hypertension Reproductive Disorders: No Sexually Transmitted Disease: No HIV/AIDS: No Arthritis, Back Injury Loss of Vision: Denies Hearing Impairment: Denies Suicide Attempts, Depression Adverse Reaction/Blood Tranf: No Family Medical History Abdominal aortic aneurysm G8 SISTER, Arthritis 19 FATHER 19 MOTHER Diabetes mellitus 19 MOTHER (Borderline diabetic) No Family History of: AIDS Cale's disease Alcoholism Alzheimer's disease Aphasia Asthma Cancer of mouth Cardiovascular disease Cataracts Colon cancer Completed stroke Congenital disease Congenital heart disease Coronary thrombosis Cystic fibrosis Deafness or hearing loss Dementia Drug abuse Dysphasia Fibrocystic disease of breast Gastroenteritis Glaucoma Headache disorder Hypercholesterolemia Hypertension Infertility Kidney disease Myocardial infarction Neoplasm Not obtainable due to adoption Osteoporosis Parkinson's disease Prostate cancer Psychosocial problem Respiratory disorder Seizure disorder Severe allergy Thyroid disease Tuberculosis Visual disorder Physical Exam Vital Signs Vital Signs - First Documented Capillary Refill : Height, Weight, BMI Height: 5'9.00" Weight: 163lbs. 0.0oz. 73.499274rb; 24.1 BMI Method:Stated General Appearance: No Apparent Distress, WD/WN HEENT: PERRL/EOMI, TMs Normal, Normal ENT Inspection, Pharynx Normal Neck: Full Range of Motion, Normal Inspection, Non Tender, Supple; No Lymphadenopathy (L), No Lymphadenopathy (R) Respiratory: Chest Non Tender, No Accessory Muscle Use, No Respiratory Distress , Wheezing Cardiovascular: Regular Rate, Rhythm, No Edema, No Murmur, Normal Peripheral Pulses Gastrointestinal: Normal Bowel Sounds, No Organomegaly, No Pulsatile Mass, Non Tender, Soft Extremity: Normal Capillary Refill, Normal Inspection, Normal Range of Motion, No Pedal Edema Neurologic/Psychiatric: Alert, Oriented x3, No Motor/Sensory Deficits, Normal Mood/Affect Skin: Warm/Dry, Pallor Lymphatic: No Adenopathy Progress/Results/Core Measures Results/Orders Lab Results Laboratory Tests Test 08/18/18 16:57 Range/Units White Blood Count 23.1 H 4.3-11.0 10^3/uL Red Blood Count 3.63 L 4.35-5.85 10^6/uL Hemoglobin 11.3 L 13.3-17.7 G/DL Hematocrit 33 L 40-54 % Mean Corpuscular Volume 92 80-99 FL Mean Corpuscular Hemoglobin 31 25-34 PG Mean Corpuscular Hemoglobin Concent 34 32-36 G/DL Red Cell Distribution Width 13.0 10.0-14.5 % Platelet Count 414 H 130-400 10^3/uL Mean Platelet Volume 9.7 7.4-10.4 FL Neutrophils (%) (Auto) 87 H 42-75 % Lymphocytes (%) (Auto) 5 L 12-44 % Monocytes (%) (Auto) 8 0-12 % Eosinophils (%) (Auto) 1 0-10 % Basophils (%) (Auto) 0 0-10 % Neutrophils # (Auto) 20.0 H 1.8-7.8 X 10^3 Lymphocytes # (Auto) 1.0 1.0-4.0 X 10^3 Monocytes # (Auto) 1.9 H 0.0-1.0 X 10^3 Eosinophils # (Auto) 0.2 0.0-0.3 10^3/uL Basophils # (Auto) 0.0 0.0-0.1 10^3/uL Neutrophils % (Manual) 91 % Lymphocytes % (Manual) 3 % Monocytes % (Manual) 5 % Eosinophils % (Manual) 0 % Basophils % (Manual) 0 % Band Neutrophils 1 % Blood Morphology Comment NORMAL Prothrombin Time 13.8 12.2-14.7 SEC INR Comment 1.1 0.8-1.4 Activated Partial Thromboplast Time 33 24-35 SEC D-Dimer 0.44 0.00-0.49 UG/ML Sodium Level 126 L 135-145 MMOL/L Potassium Level 4.4 3.6-5.0 MMOL/L Chloride Level 90 L 98-107 MMOL/L Carbon Dioxide Level 27 21-32 MMOL/L Anion Gap 9 5-14 MMOL/L Blood Urea Nitrogen 8 7-18 MG/DL Creatinine 0.86 0.60-1.30 MG/DL Estimat Glomerular Filtration Rate > 60 BUN/Creatinine Ratio 9 Glucose Level 109 H 70-105 MG/DL Calcium Level 11.2 H 8.5-10.1 MG/DL Corrected Calcium 11.5 H 8.5-10.1 MG/DL Magnesium Level 1.6 L 1.8-2.4 MG/DL Total Bilirubin 0.3 0.1-1.0 MG/DL Aspartate Amino Transf (AST/SGOT) 12 5-34 U/L Alanine Aminotransferase (ALT/SGPT) 10 0-55 U/L Alkaline Phosphatase 108 40-136 U/L Myoglobin 35.4 10.0-92.0 NG/ML Troponin I < 0.028 <0.028 NG/ML Total Protein 7.3 6.4-8.2 GM/DL Albumin 3.6 3.2-4.5 GM/DL My Orders Orders - ANDREW DONG Cbc With Automated Diff (08/18/18 16:57) Magnesium (08/18/18 16:57) Chest 1 View, Ap/Pa Only (08/18/18 16:57) Ekg Tracing (08/18/18 16:57) Cardiac Profile 1 (08/18/18 16:57) Comprehensive Metabolic Panel (08/18/18 16:57) Myoglobin Serum (08/18/18 16:57) Protime With Inr (08/18/18 16:57) Partial Thromboplastin Time (08/18/18 16:57) O2 (08/18/18 16:57) Monitor-Rhythm Ecg Trace Only (08/18/18 16:57) Saline Lock/Iv-Start (08/18/18 16:57) Aspirin Chewable Tablet (Baby Aspirin Ch (08/18/18 17:00) Manual Differential (08/18/18 16:57) Fibrin Degradation Products (08/18/18 17:27) Ct Chest Wo (08/18/18 17:48) Saline Lock/Iv-Start (08/18/18 18:18) Hydrocodone/Apap 7.5/325 Tab (Lortab 7. (08/18/18 18:50) Medications Given in ED Current Medications Medications Dose Ordered Sig/Mehrdad Route Start Time Stop Time Status Last Admin Dose Admin Aspirin 324 mg ONCE ONCE PO 08/18/18 17:00 08/18/18 17:02 DC 08/18/18 17:10 324 MG Vital Signs/I&O 108/18/18 08/18/18 16:51 16:51 19:00 Temp 97.6 97.6 Pulse 80 76 Resp 18 18 B/P (MAP) 137/90 (106) 121/92 (102) Pulse Ox 95 94 O2 Delivery Room Air Room Air Room Air Progress Progress Note : Time: 16:50 Progress Note Patient seen and evaluated, we'll start with chest pain workup including EKG, labs and chest x-ray. Aspirin 324 mg orally. 1730 labs show elevated white count, hyponatremia, awaiting remaining labs. 1800 troponin negative, chest x-ray shows questionable consolidation in the right lung. Discussed these findings with the patient, recommended CT of the chest. Since he is allergic to iodine we will not use contrast. [address] results discussed in depth with the patient and his family. 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 Recommended he have evaluation by Dr. Bridges and oncology. They will call for appointments tomorrow. Discharge instructions and return precautions reviewed with the patient. Initial ECG Impression Date: Aug 18, 2018 Initial ECG Impression Time: 16:56 Initial ECG Rhythm: Normal Sinus Initial ECG Intervals: Normal Initial ECG Intervals DC 197, QRSD 103, QT 366, QTC 4:15. Orange P 54, QRS -41, T 87. Initial ECG Impression: Normal Initial ECG Comparisson: Unchanged Diagnostic Imaging Diagonstic Imaging: Xray Plain Films/CT/US/NM/MRI: chest Comments NAME: [facility] REC#: [id number] PT STATUS: REG ER : 1955 PHYSICIAN: ANDREW DONG ADMIT DATE: 08/18/18/ER Draft Date of Exam:08/18/18 CHEST 1 VIEW, AP/PA ONLY PATIENT HISTORY: Back pain and chest pain. TECHNIQUE: Single frontal view of the chest. COMPARISON: 05/01/2016 FINDINGS: Redemonstrated are chronic opacities in the right lung apex. There is deviation of the trachea to the right with right upper lung volume loss. Consolidation in the right lung apex has increased. No pleural effusion or pneumothorax is seen. Lung volumes overall appear large. The cardiac silhouette is stable in size. IMPRESSION: 1. Chronic opacities in the right upper lung with increased consolidation. This may be due to chronic increased scarring and atelectasis versus superimposed infiltrate. There is persistent volume loss in the right upper lung. Dictated on workstation # [id number] Dict: 08/18/18 1722 Trans: 08/18/18 1732 [id number] Interpreted by: RIRI JIANG MD Electronically signed by: Reviewed: Reviewed by Me Diagonstic Imaging: CT Comments NAME: [facility] REC#: [id number] PT STATUS: REG ER : 1955 PHYSICIAN: ANDREW DONG ADMIT DATE: 08/18/18/ER Draft Date of Exam:08/18/18 CT CHEST WO PROCEDURE: CT chest without contrast. TECHNIQUE: Multiple contiguous axial images were obtained through the chest without the use of intravenous contrast. INDICATION: Right-sided back pain for two months extending to the right chest three weeks ago. COMPARISON: 11/10/2015. FINDINGS: The heart is not enlarged. There is no significant pericardial effusion. There is a large right lower paratracheal lymph node which measures up to 3.8 x 2.9 x 3.4 cm in size (image 18, series 2). There is a large mass in the posterior mediastinum measuring 3.8 x 3.2 x 5.2 cm in size, which causes significant erosion of the right T5 and T6 vertebral bodies along with the respective ribs, with extension to the neural foramina. Abutting this mass and possibly confluent with it, there is an elongated mass just posterior to the trachea which measures approximately 2.6 x 2.4 cm on axial imaging and 7.1 cm craniocaudal. This mass causes erosion of the T3 vertebral body on the right side. There is dense consolidation in the right upper lung, with a mass-like density measuring up to 3.8 x 1.9 cm in size (image 18 of series 2). There is scarring and a cavitary component in the right upper lobe. There is pleural thickening in the upper right lung. The left lung appears clear. There are old left-sided rib fractures. No acute abnormality is seen in the upper abdomen. IMPRESSION: 1. Multiple soft tissue masses in the middle and posterior mediastinum, concerning for malignancy/metastatic disease. Some of these masses cause erosion of the upper thoracic vertebral bodies extending to the foramina, as described above. 2. Mass-like consolidation in the right upper lobe, may be related to above findings, with a cavitary component. Underlying infection is not excluded. Dictated on workstation # [id number] Dict: 08/18/18 1808 Trans: 08/18/18 1819 [id number] Interpreted by: RIRI JIANG MD Electronically signed by: Departure Impression Primary Impression: Mass of right lung Additional Impressions: Lymph node enlargement Thoracic spine tumor Disposition: HOME, SELF-CARE Condition: Improved Departure-Patient Inst. Decision time for Depature: 18:30 Referrals: BEA WAHL MD (PCP/Family) Primary Care Physician Patient Instructions: Lung Cancer (DC) Add. Discharge Instructions: Use your inhaler every 4 hours, [address] Bridges's office tomorrow for a follow-up appointment Call via [facility] tomorrow, [phone] for evaluation. Eat small frequent meals. Continue to take your multivitamin daily. Return to emergency department for changes in your symptoms. Scripts Hydrocodone Bit/Acetaminophen (Hydrocodone/Acetaminophen 5/325mg Tablet) 1 Tab Tab 1-2 EACH PO Q6H PRN for PAIN-MODERATE MDD 10, #30 TAB 0 Refills Prov: ANDREW DONG 08/18/18 Copy Copies To 1: BEA WAHL MD Copies To 2: SHIRA BRIDGES AMY ARNP Aug 18, 2018 17:03
[2018-08-18 17:09] LABS: BASOPHILS % (AUTO) 0 % (0-10); EOSINOPHILS # (AUTO) 0.2 10^3/uL (0.0-0.3); EOSINOPHILS % (AUTO) 1 % (0-10); HEMATOCRIT 33 % (40-54); HEMOGLOBIN 11.3 G/DL (13.3-17.7); LYMPHOCYTES % (AUTO) 5 % (12-44); MEAN CORPUSCULAR HEMOGLOBIN 31 PG (25-34); MEAN CORPUSCULAR HGB CONC 34 G/DL (32-36); MEAN CORPUSCULAR VOLUME 92 FL (80-99); MEAN PLATELET VOLUME 9.7 FL (7.4-10.4); MONOCYTES # (AUTO) 1.9 X 10^3 (0.0-1.0); MONOCYTES % (AUTO) 8 % (0-12); NEUTROPHILS % (AUTO) 87 % (42-75); PLATELET COUNT 414 10^3/uL (130-400); RED BLOOD COUNT 3.63 10^6/uL (4.35-5.85); WHITE BLOOD COUNT 23.1 10^3/uL (4.3-11.0)
[2018-08-18 17:20] LABS: INR 1.1 (0.8-1.4); PROTHROMBIN TIME PATIENT 13.8 SEC (12.2-14.7)
[2018-08-18 17:27] LABS: ALANINE AMINOTRANSFERASE 10 U/L (0-55); ALBUMIN 3.6 GM/DL (3.2-4.5); ALKALINE PHOSPHATASE 108 U/L (40-136); BILIRUBIN,TOTAL 0.3 MG/DL (0.1-1.0); BUN/CREATININE RATIO 9; CALCIUM 11.2 MG/DL (8.5-10.1); CARBON DIOXIDE 27 MMOL/L (21-32); CHLORIDE 90 MMOL/L (98-107); CREATININE SERUM 0.86 MG/DL (0.60-1.30); GFR ESTIMATED > 60; GLUCOSE 109 MG/DL (70-105); MAGNESIUM 1.6 MG/DL (1.8-2.4); POTASSIUM 4.4 MMOL/L (3.6-5.0); SODIUM 126 MMOL/L (135-145); TOTAL PROTEIN 7.3 GM/DL (6.4-8.2)
--- NOTE | 2018-08-18 17:32 | Diagnostic Imaging Report ---
PATIENT HISTORY: Back pain and chest pain. TECHNIQUE: Single frontal view of the chest. COMPARISON: 05/01/2016 FINDINGS: Redemonstrated are chronic opacities in the right lung apex. There is deviation of the trachea to the right with right upper lung volume loss. Consolidation in the right lung apex has increased. No pleural effusion or pneumothorax is seen. Lung volumes overall appear large. The cardiac silhouette is stable in size. IMPRESSION: 1. Chronic opacities in the right upper lung with increased consolidation. This may be due to chronic increased scarring and atelectasis versus superimposed infiltrate. There is persistent volume loss in the right upper lung. Dictated by: Dictated on workstation # [id number]
[2018-08-18 17:35] LABS: MYOGLOBIN SERUM 35.4 NG/ML (10.0-92.0)
[2018-08-18 18:02] LABS: BAND NEUTROPHILS 1 %; BASOPHILS % (MANUAL) 0 %; EOSINOPHILS % (MANUAL) 0 %; LYMPHOCYTES % (MANUAL) 3 %; MONOCYTES % (MANUAL) 5 %; NEUTROPHILS % (MANUAL) 91 %; RBC MORPH NORMAL
[2018-08-18] MEDS ORDERED: NS IV 1000 ML 1,000 ML IV SCH (18:18)
--- NOTE | 2018-08-18 18:20 | Diagnostic Imaging Report ---
PROCEDURE: CT chest without contrast. TECHNIQUE: Multiple contiguous axial images were obtained through the chest without the use of intravenous contrast. INDICATION: Right-sided back pain for two months extending to the right chest three weeks ago. COMPARISON: 11/10/2015. FINDINGS: The heart is not enlarged. There is no significant pericardial effusion. There is a large right lower paratracheal lymph node which measures up to 3.8 x 2.9 x 3.4 cm in size (image 18, series 2). There is a large mass in the posterior mediastinum measuring 3.8 x 3.2 x 5.2 cm in size, which causes significant erosion of the right T5 and T6 vertebral bodies along with the respective ribs, with extension to the neural foramina. Abutting this mass and possibly confluent with it, there is an elongated mass just posterior to the trachea which measures approximately 2.6 x 2.4 cm on axial imaging and 7.1 cm craniocaudal. This mass causes erosion of the T3 vertebral body on the right side. There is dense consolidation in the right upper lung, with a mass-like density measuring up to 3.8 x 1.9 cm in size (image 18 of series 2). There is scarring and a cavitary component in the right upper lobe. There is pleural thickening in the upper right lung. The left lung appears clear. There are old left-sided rib fractures. No acute abnormality is seen in the upper abdomen. IMPRESSION: 1. Multiple soft tissue masses in the middle and posterior mediastinum, concerning for malignancy/metastatic disease. Some of these masses cause erosion of the upper thoracic vertebral bodies extending to the foramina, as described above. 2. Mass-like consolidation in the right upper lobe, may be related to above findings, with a cavitary component. Underlying infection is not excluded. Dictated by: Dictated on workstation # [id number]
[2018-08-18] MEDS ORDERED: ACHD5005 PO ×2 (18:48→18:52)
[2018-08-18] MEDS ORDERED: HYDROcodone/APAP 7.5 MG/325 MG (LORTAB, LORCET PLUS) TABLET PO STA (18:50)
[2018-08-18 19:00] VITALS: BP 121/92
[2018-08-19] MEDS ORDERED: [UNRECOGNIZED DRUG - OTHER] PO (16:35)
[2018-08-19] MEDS ORDERED: LISI1TAB8 PO (16:35)
[2018-08-19] MEDS ORDERED: NAPR-915 PO (16:35)
[2018-08-19] MEDS ORDERED: MV,M1TAB4 PO (16:35)
[2018-08-19] MEDS ORDERED: CETI10TA20 PO (16:40)
[2018-08-19] MEDS ORDERED: CYCL10TA9 PO (16:40)
== END 2018-08-18 19:03 | disposition home or self-care (01) ==
LOC: EDUNIT# 16:40 → ER 16:42
DX: R91.8 Other nonspecific abnormal finding of lung field (principal); R59.0 Localized enlarged lymph nodes; D33.4 Benign neoplasm of spinal cord; J44.9 Chronic obstructive pulmonary disease, unspecified; I48.91 Unspecified atrial fibrillation; I10 Essential (primary) hypertension; F32.9 Major depressive disorder, single episode, unspecified; F17.210 Nicotine dependence, cigarettes, uncomplicated; Z87.01 Personal history of pneumonia (recurrent); Z91.5 Personal history of self-harm; Z87.19 Personal history of other diseases of the digestive system; Z91.041 Radiographic dye allergy status; Z79.51 Long term (current) use of inhaled steroids
CPT/HCPCS: 36415; 71045; 71250; 80053; 83735; 83874; 84484; 85007; 85027; 85379; 85610; 85730; 93005; 93041

== ENCOUNTER 2018-08-19 15:13 | Inpatient (IN) | payer OTHER | END 2018-08-27 14:15 | disposition home or self-care (01) | LOC: 4TH 15:13 | DX: R91.8 Other nonspecific abnormal finding of lung field (principal); J18.9 Pneumonia, unspecified organism; E83.52 Hypercalcemia; E22.2 Syndrome of inappropriate secretion of antidiuretic hormone; R07.9 Chest pain, unspecified; J44.0 Chronic obstructive pulmonary disease with (acute) lower respiratory infection; I48.2 Chronic atrial fibrillation; F17.210 Nicotine dependence, cigarettes, uncomplicated; I25.10 Atherosclerotic heart disease of native coronary artery without angina pectoris; F32.9 Major depressive disorder, single episode, unspecified; F10.20 Alcohol dependence, uncomplicated; I10 Essential (primary) hypertension; I34.1 Nonrheumatic mitral (valve) prolapse; K59.09 Other constipation; M19.90 Unspecified osteoarthritis, unspecified site; R59.0 Localized enlarged lymph nodes; Z91.5 Personal history of self-harm ==

== ENCOUNTER 2018-09-07 04:16 | Inpatient (IN) | payer OTHER ==
[2018-09-07] VITALS (19 sets, daily range): BP systolic 72–148; BP diastolic 37–116
[~2018-09-07] VITALS: Ht 175.3 cm; Wt 106.8 kg
[~2018-09-07 04:16] MED LIST changes: +ACHD5005 PO; -AMLO10TA6 PO; +AMLO10TA7 PO; +CETI10TA20 PO; +CYCL10TA9 PO; +FLUC200T PO; +LISI1TAB8 PO; +MV,M1TAB4 PO; +NAPR-915 PO; +[UNRECOGNIZED DRUG - OTHER] PO
[2018-09-07] MEDS ORDERED: LACTATED RINGERS 1,000 ML IV ONE ×2 (05:46→10:32)
[2018-09-07] MEDS ORDERED: HYOSCYAMINE 0.125 MG (LEVSIN) TAB SL ONE (06:00)
[2018-09-07 06:19] LABS: BASOPHILS # (AUTO) 0.1 10^3/uL (0.0-0.1); BASOPHILS % (AUTO) 0 % (0-10); EOSINOPHILS # (AUTO) 0.2 10^3/uL (0.0-0.3); EOSINOPHILS % (AUTO) 0 % (0-10); HEMATOCRIT 33 % (40-54); HEMOGLOBIN 10.8 G/DL (13.3-17.7); LYMPHOCYTES % (AUTO) 2 % (12-44); MEAN CORPUSCULAR HEMOGLOBIN 29 PG (25-34); MEAN CORPUSCULAR HGB CONC 32 G/DL (32-36); MEAN CORPUSCULAR VOLUME 91 FL (80-99); MEAN PLATELET VOLUME 10.4 FL (7.4-10.4); MONOCYTES # (AUTO) 1.4 X 10^3 (0.0-1.0); MONOCYTES % (AUTO) 3 % (0-12); NEUTROPHILS # (AUTO) 47.7 X 10^3 (1.8-7.8); NEUTROPHILS % (AUTO) 95 % (42-75); PLATELET COUNT 806 10^3/uL (130-400)
[2018-09-07 06:22] LABS: WHITE BLOOD COUNT 50.3 10^3/uL (4.3-11.0)
[2018-09-07] MEDS ORDERED: NS IV 1000 ML 1,000 ML IV ONE ×3 (06:28→08:34)
[2018-09-07] MEDS ORDERED: RT-ALBUTEROL/IPRATROPIUM 3 ML (DUONEB) VIAL INH ONE (06:30)
[2018-09-07] MEDS ORDERED: PIPERACILLIN SODIUM/TAZOBACTAM 4.5 GM in NS (IVPB) 100 ML IV ONE (06:30)
[2018-09-07 06:40] LABS: INR 1.2 (0.8-1.4); PROTHROMBIN TIME PATIENT 15.2 SEC (12.2-14.7)
[2018-09-07 06:41] LABS: ALANINE AMINOTRANSFERASE 11 U/L (0-55); ALBUMIN 3.2 GM/DL (3.2-4.5); ALKALINE PHOSPHATASE 159 U/L (40-136); AMYLASE 238 U/L (25-125); BILIRUBIN,TOTAL 0.8 MG/DL (0.1-1.0); BUN/CREATININE RATIO 11; CALCIUM 12.6 MG/DL (8.5-10.1); CARBON DIOXIDE 21 MMOL/L (21-32); CHLORIDE 103 MMOL/L (98-107); CREATININE SERUM 2.07 MG/DL (0.60-1.30); GFR ESTIMATED 33; GLUCOSE 115 MG/DL (70-105); LIPASE 128 U/L (8-78); POTASSIUM 4.6 MMOL/L (3.6-5.0); SODIUM 139 MMOL/L (135-145); TOTAL PROTEIN 7.1 GM/DL (6.4-8.2)
[2018-09-07] MEDS ORDERED: fentaNYL INJECTION 100 MCG/2 ML AMP IVP ONE ×2 (06:45→07:45)
--- NOTE | 2018-09-07 07:00 | ED General ---
General Stated Complaint: SEVERE ABD LINDA Source of Information: Patient, Family, Old Records, Other (Dr. Bridges) Exam Limitations: No Limitations History of Present Illness Date Seen by Provider: Sep 07, 2018 Time Seen by Provider: 05:45 Initial Comments This 62-year-old gentleman presents to the emergency room with complaints of intense abdominal pain that started around 19:30 last night. He saw his primary care provider for symptoms of GERD and to obtain a hydrocodone prescription for pain in his back. He had been admitted earlier in the month for pneumonia and was found to have lesions suspicious for cancer in the lung that also involved the spine. Bronchoscopy performed by Dr. Bridges confirmed squamous cell carcinoma of the lung. Patient states he ate dinner last night and then "something just popped in my stomach". He has had intense pain and cramping since then which he rates as 9/10 on the pain scale. He has been afebrile. He reports poor bowel movements recently. He has had no urine production since onset of pain last night. He has had no vomiting or diarrhea. During initial discussion with patient he requests a DO NOT RESUSCITATE status. Patient is hypotensive upon my initial assessment. Allergies and Home Medications Allergies Coded Allergies: iodine (Verified Allergy, Unknown, 09/25/05) Home Medications Amlodipine Besylate 10 Mg Tablet, 10 MG PO DAILY, (Reported) Amoxicillin/Potassium Clav 1 Each Tablet, 1 EACH PO BID Prescribed by: LUÍS TRAN on 08/27/18 1026 Cetirizine HCl 10 Mg Tablet, 10 MG PO DAILY PRN for ALLERGIES, (Reported) Cyclobenzaprine HCl 10 Mg Tablet, 5 MG PO Q8H PRN for MUSCLE SPASMS, (Reported) TAKES 1/2 (10MG) TABLET Dm/PE/Acetaminophen/Doxylamine 236 Ml Liquid, 30 ML PO HS PRN for SLEEP, ( Reported) Fluconazole 200 Mg Tablet, 200 MG PO DAILY Prescribed by: LUÍS TRAN on 08/27/18 1026 Hydrocodone Bit/Acetaminophen 1 Tab Tab, 1-2 EACH PO Q6H PRN for PAIN-MODERATE Prescribed by: ANDREW DONG on 08/18/18 1852 Mv,Minerals/FA/Lycopene/Ginkgo 1 Each Tablet, 1 TAB PO DAILY, (Reported) Naproxen 500 Mg Tablet, 500 MG PO BID, (Reported) Patient Home Medication List Home Medication List Reviewed: Yes Review of Systems Review of Systems Constitutional: no symptoms reported EENTM: other (dry mucous membranes) Respiratory: short of breath Cardiovascular: see HPI (hypotensive) Gastrointestinal: see HPI, abdominal pain Genitourinary: see HPI Musculoskeletal: no symptoms reported Skin: change in color (pale) Psychiatric/Neurological: No Symptoms Reported Hematologic/Lymphatic: No Symptoms Reported Immunological/Allergic: see HPI Past Lewvsfa-Xdqpcj-Gkvlst Hx Past Med/Social Hx: Reviewed and Corrections made Patient Social History Alcohol Beverage of Choice: Beer Smoking Status: Current Everyday Smoker Type Used: Cigarettes 2nd Hand Smoke Exposure: Yes Recent Foreign Travel: No Contact w/Someone Who Travel: No Recent Hopitalizations: No Immunizations Up To Date Tetanus Booster (TDap): Unknown PED Vaccines UTD: Yes Seasonal Allergies Seasonal Allergies: No Past Medical History Surgeries: Yes (r knee X2, r wrist, LEFT HAND, VERTEBRE C2, bronchoscopy 2 with biopsy) Orthopedic Respiratory: Yes (metastatic squamous cell lung cancer) Asthma, Pneumonia, COPD Cardiac: Yes (mitrial valve prolapse, ORTHOSTATIC) Atrial Fibrillation, Hypertension Neurological: No Reproductive Disorders: No Sexually Transmitted Disease: No HIV/AIDS: No Genitourinary: No Gastrointestinal: Yes Chronic Constipation Musculoskeletal: Yes (NECK INJURY, BACK PAIN) Arthritis Endocrine: No HEENT: No Loss of Vision: Denies Hearing Impairment: Denies Cancer: Yes Lung (metastatic squamous cell lung cancer) Psychosocial: Yes Suicide Attempts, Depression Integumentary: No Blood Disorders: No Adverse Reaction/Blood Tranf: No Family Medical History Reviewed Nursing Family Hx Abdominal aortic aneurysm G8 SISTER, Arthritis 19 FATHER 19 MOTHER Diabetes mellitus 19 MOTHER (Borderline diabetic) No Family History of: AIDS Rowan's disease Alcoholism Alzheimer's disease Aphasia Asthma Cancer of mouth Cardiovascular disease Cataracts Colon cancer Completed stroke Congenital disease Congenital heart disease Coronary thrombosis Cystic fibrosis Deafness or hearing loss Dementia Drug abuse Dysphasia Fibrocystic disease of breast Gastroenteritis Glaucoma Headache disorder Hypercholesterolemia Hypertension Infertility Kidney disease Myocardial infarction Neoplasm Not obtainable due to adoption Osteoporosis Parkinson's disease Prostate cancer Psychosocial problem Respiratory disorder Seizure disorder Severe allergy Thyroid disease Tuberculosis Visual disorder No Pertinent Family Hx Physical Exam-Suspected Sepsis Physical Exam Vital Signs Vital Signs - First Documented 09/07/18 11:14 FiO2 100 Capillary Refill : Height, Weight, BMI Height: 5'9.00" Weight: 169lbs. 0.0oz. [id number]; 25.0 BMI Method:Stated General Appearance: WD/WN, Moderate Distress HEENT: PERRL/EOMI, Normal ENT Inspection, Other (mucous membranes dry) Neck: Normal Inspection Respiratory: No Accessory Muscle Use, No Respiratory Distress; No Crackles, No Rhonci; Wheezing, Other (mild increase in work of breathing) Cardiovascular: Regular Rate, Rhythm, No Edema, No Murmur Gastrointestinal: Abnormal Bowel Sounds (decreased), Distended, Rebound, Tenderness (diffuse with peritoneal signs) Extremity: Normal Capillary Refill, Normal Inspection, Non Tender, No Pedal Edema Neurologic/Psychiatric: Alert, Oriented x3, No Motor/Sensory Deficits, Normal Mood/Affect, experimental box tester II-XII Norm as Tested Skin: warm/dry, pallor Focused Exam Sepsis Stage: Septic Shock Possible Source: GI Tract/Intra-Abdominal Lactate Level 09/07/18 06:45: Lactic Acid Level 3.56*H Time of Focused Exam: 07:35 Respiratory: No Respiratory Distress, Wheezing (slight) Cardiovascular: Regular Rate, Rhythm, No Edema, No Murmur Capillary Refill: Less Than 3 Seconds Peripheral Pulses: 2+ Radial Pulses (R) Skin: warm/dry, pallor Lactic Acid Level Within 3hrs of presentation: Admin fluids, Admin ABX, Blood cultures prior to ABX's, Focus exam, Lactate level Progress/Results/Core Measures Suspected Sepsis SIRS Temperature: Pulse: Respiratory Rate: Laboratory Tests 09/07/18 05:45: White Blood Count 50.3*H Blood Pressure / Mean: 09/07/18 06:45: Lactic Acid Level 3.56*H Laboratory Tests 09/07/18 05:45: Creatinine 2.07H, INR Comment 1.2, Platelet Count 806H, Total Bilirubin 0.8 Results/Orders Lab Results Laboratory Tests Test 09/07/18 05:45 09/07/18 06:45 Range/Units White Blood Count 50.3 *H 4.3-11.0 10^3/uL Red Blood Count 3.68 L 4.35-5.85 10^6/uL Hemoglobin 10.8 L 13.3-17.7 G/DL Hematocrit 33 L 40-54 % Mean Corpuscular Volume 91 80-99 FL Mean Corpuscular Hemoglobin 29 25-34 PG Mean Corpuscular Hemoglobin Concent 32 32-36 G/DL Red Cell Distribution Width 15.0 H 10.0-14.5 % Platelet Count 806 H 130-400 10^3/uL Mean Platelet Volume 10.4 7.4-10.4 FL Neutrophils (%) (Auto) 95 H 42-75 % Lymphocytes (%) (Auto) 2 L 12-44 % Monocytes (%) (Auto) 3 0-12 % Eosinophils (%) (Auto) 0 0-10 % Basophils (%) (Auto) 0 0-10 % Neutrophils # (Auto) 47.7 H 1.8-7.8 X 10^3 Lymphocytes # (Auto) 1.0 1.0-4.0 X 10^3 Monocytes # (Auto) 1.4 H 0.0-1.0 X 10^3 Eosinophils # (Auto) 0.2 0.0-0.3 10^3/uL Basophils # (Auto) 0.1 0.0-0.1 10^3/uL Neutrophils % (Manual) 69 % Lymphocytes % (Manual) 2 % Monocytes % (Manual) 1 % Eosinophils % (Manual) 0 % Basophils % (Manual) 0 % Metamyelocytes % 2 % Band Neutrophils 26 % Anisocytosis SLIGHT Prothrombin Time 15.2 H 12.2-14.7 SEC INR Comment 1.2 0.8-1.4 Activated Partial Thromboplast Time 30 24-35 SEC Sodium Level 139 135-145 MMOL/L Potassium Level 4.6 3.6-5.0 MMOL/L Chloride Level 103 98-107 MMOL/L Carbon Dioxide Level 21 21-32 MMOL/L Anion Gap 15 H 5-14 MMOL/L Blood Urea Nitrogen 22 H 7-18 MG/DL Creatinine 2.07 H 0.60-1.30 MG/DL Estimat Glomerular Filtration Rate 33 BUN/Creatinine Ratio 11 Glucose Level 115 H 70-105 MG/DL Calcium Level 12.6 H 8.5-10.1 MG/DL Corrected Calcium 13.2 H 8.5-10.1 MG/DL Magnesium Level 2.0 1.8-2.4 MG/DL Total Bilirubin 0.8 0.1-1.0 MG/DL Aspartate Amino Transf (AST/SGOT) 18 5-34 U/L Alanine Aminotransferase (ALT/SGPT) 11 0-55 U/L Alkaline Phosphatase 159 H 40-136 U/L Total Protein 7.1 6.4-8.2 GM/DL Albumin 3.2 3.2-4.5 GM/DL Amylase Level 238 H 25-125 U/L Lipase 128 H 8-78 U/L Serum Alcohol < 10 <10 MG/DL Lactic Acid Level 3.56 *H 0.50-2.00 MMOL/L My Orders Orders - CARL CHRISTENSEN MD Blood Culture (09/07/18 06:26) Sputum Culture (09/07/18 06:26) Urine Culture (09/07/18 06:26) Protime With Inr (09/07/18 06:26) Partial Thromboplastin Time (09/07/18 06:26) Chest 1 View, Ap/Pa Only (09/07/18 06:26) Saline Lock/Iv-Start (09/07/18 06:26) Vital Signs Adult Sepsis Patie Q15M (09/07/18 06:26) O2 (09/07/18 06:26) Remove Rings In Anticipation O (09/07/18 06:26) Lactic Acid Analyzer (09/07/18 06:26) Piperacillin Sodium/Tazobactam (Zosyn Vi (09/07/18 06:30) Albuterol/Ipra Inhalation Soln (Duoneb I (09/07/18 06:30) Svn Small Volume Nebulizer (09/07/18 06:26) Saline Lock/Iv-Start (09/07/18 06:28) Ns Iv 1000 Ml (Sodium Chloride 0.9%) (09/07/18 06:28) Ns Iv 1000 Ml (Sodium Chloride 0.9%) (09/07/18 06:28) Fentanyl Injection (Sublimaze Injection (09/07/18 06:45) Ct Chest/Abdomen/Pelvis Wo (09/07/18 06:39) Fentanyl Injection (Sublimaze Injection (09/07/18 07:45) Dorantes Cath (09/07/18 07:38) Vancomycin Injection (Vancomycin Injecti (09/07/18 07:45) Fluconazole 200 Mg/100 Ml (Diflucan Iv) (09/07/18 07:45) Pantoprazole Injection (Protonix Injecti (09/07/18 07:45) Ns Iv 1000 Ml (Sodium Chloride 0.9%) (09/07/18 08:34) Medications Given in ED Current Medications Medications Dose Ordered Sig/Mehrdad Route Start Time Stop Time Status Last Admin Dose Admin Albuterol/ Ipratropium 3 ml ONCE ONCE INH 09/07/18 06:30 09/07/18 06:31 DC 09/07/18 06:40 3 ML Fentanyl Citrate 50 mcg ONCE ONCE IVP 09/07/18 06:45 09/07/18 06:46 DC 09/07/18 06:50 50 MCG Fentanyl Citrate 50 mcg ONCE ONCE IVP 09/07/18 07:45 09/07/18 07:46 DC 09/07/18 07:36 50 MCG Fluconazole/ Sodium Chloride 100 ml @ 100 mls/hr ONCE ONCE IV 09/07/18 07:45 09/07/18 08:44 DC 09/07/18 08:29 100 MLS/HR Hyoscyamine Sulfate 0.25 mg ONCE ONCE SL 09/07/18 06:00 09/07/18 06:01 DC 09/07/18 06:00 0.25 MG Lactated Ringer's 1,000 ml @ 0 mls/hr Q0M ONCE IV 09/07/18 05:46 09/07/18 05:48 DC 09/07/18 06:00 999 MLS/HR Pantoprazole 80 mg ONCE ONCE IV 09/07/18 07:45 09/07/18 07:46 DC 09/07/18 08:05 80 MG Piperacillin Sod/ Tazobactam Sod 4.5 gm/Sodium Chloride 100 ml @ 200 mls/hr ONCE ONCE IV 09/07/18 06:30 09/07/18 06:59 DC 09/07/18 07:29 200 MLS/HR Sodium Chloride 1,000 ml @ 0 mls/hr Q0M ONCE IV 09/07/18 06:28 09/07/18 06:29 DC 09/07/18 06:50 999 MLS/HR Sodium Chloride 1,000 ml @ 0 mls/hr Q0M ONCE IV 09/07/18 06:28 09/07/18 06:29 DC 09/07/18 07:23 999 MLS/HR Vancomycin HCl 1000 mg/Sodium Chloride 250 ml @ 250 mls/hr ONCE ONCE IV 09/07/18 07:45 09/07/18 08:44 DC 09/07/18 08:07 250 MLS/HR Vital Signs/I&O 09/07/18 09/07/18 09/07/18 09/07/18 05:38 05:38 06:42 08:48 Temp 96.2 Pulse 68 67 Resp 21 18 B/P (MAP) 101/81 (88) 85/50 (62) Pulse Ox 100 98 97 O2 Delivery Nasal Cannula Nasal Cannula Nasal Cannula Nasal Cannula O2 Flow Rate 2.00 2.00 2.00 2.00 09/07/18 11:14 Pulse 96 Resp 16 Pulse Ox 100 FiO2 100 Capillary Refill : Progress Note #1: Time: 06:56 Progress Note This patient was seen and assessed promptly upon my arrival to the ER. Sepsis was suspected as he was hypotensive. WBC is 50,000. Acute abdomen was evident with abdominal distention and diffuse intense tenderness. Peritoneal signs are present. Sepsis workup is being pursued. CT scan of the chest, abdomen and pelvis is pending. Patient's blood pressure briefly rebounded after a 1 L LR bolus. 2 more liters of normal saline have been ordered in addition. Patient is again hypotensive at this time. Dr. Bridges has been present in the ER to assess the patient and discussed plan. We will obtain a CT scan and contact Dr. Alegre with results. In the meantime, we will continue to bolus IV fluids and will treat suspected sepsis with Zosyn. Pain has been treated with fentanyl. Levsin had been ordered by Dr. Doe for his abdominal cramping when patient was roomed. A DuoNeb treatment has been administered for wheezing. The critical nature of patient's condition was explained to him and family. Patient wishes to be a DO NOT RESUSCITATE at this time with the exception of short-term ventilator support if needed for surgical intervention. Dr. Bridges anticipates central line placement upon admission to the ICU. 2 IV lines have been established in the meantime. Dr. Bridges did discuss the option of palliative care with the patient. He wishes to proceed with aggressive treatment for the time being. Progress Note #2: Time: 07:[address] has been reviewed and discussed with radiologist. Dr. Alegre is present in the emergency room and has reviewed CT with me. Patient appears to have a hollow viscus perforation. Options again were discussed with patient which included palliative care versus aggressive care with exploratory surgery. Patient wishes to proceed with surgery. Dr. Alegre would like the patient held in the ER briefly while the OR is prepped. The high-risk nature of surgery and the patient's overall condition was discussed with patient and his . He expressed understanding. He wishes to remain DO NOT RESUSCITATE at this time with intubation allowed for surgery. Dr. Alegre requested Protonix [address] Bridges was updated and requested vancomycin and Diflucan also be added. Patient is now receiving his third liter of IV fluid. Progress Note #3: Time: 08:37 Progress Note Patient is now being transferred by the preop nurse. He just completed his third liter of IV fluid. However, he is now hypotensive again with systolic blood pressures in the 80s. A fourth liter of IV fluid has been initiated. The preop nurse has been given instructions to request a pressor of anesthesiologist's choice immediately upon arrival at the surgery center. Vancomycin and Diflucan are infusing. Protonix 80 mg IV was given. Diagnostic Imaging Diagonstic Imaging: Xray Plain Films/CT/US/NM/MRI: chest Comments Chest x-ray viewed by me and report reviewed. See report below: NAME: [facility] REC#: [id number] PT STATUS: REG ER : 1955 PHYSICIAN: CARL CHRISTENSEN MD ADMIT DATE: 09/07/18/ER Draft Date of Exam:09/07/18 CHEST 1 VIEW, AP/PA ONLY INDICATION: History of lung cancer. COMPARISON: Chest radiograph of 08/26/18. FINDINGS: Right upper lobe masslike consolidation and pleural thickening is unchanged. Architectural distortion associated with this region also similar. No new airspace consolidations. Stable cardiomegaly. No pneumothorax. IMPRESSION: Stable exam compared to 08/26/2018. Chronic changes in the right upper lung are likely due to patient's known lung cancer and associated post treatment change. Dictated on workstation # [id number] Dict: 09/07/18 0722 Trans: 09/07/18 0733 CASSI [id number] Interpreted by: AZ MIRANDA MD Diagonstic Imaging: CT Plain Films/CT/US/NM/MRI: chest, abdomen, pelvis Comments CT chest, abdomen and pelvis without contrast viewed by me, reviewed it with the surgeon, and reviewed with radiologist. Report reviewed. See report below: NAME: [facility] REC#: [id number] PT STATUS: [place] [facility] [place] 1955 PHYSICIAN: CARL CHRISTENSEN MD ADMIT DATE: 09/07/18/[facility] [place] Date of Exam:09/07/18 CT CHEST/ABDOMEN/PELVIS WO PROCEDURE: CT chest, abdomen, and pelvis without contrast. TECHNIQUE: Multiple contiguous axial images were obtained through the chest, abdomen, and pelvis without the use of intravenous contrast. INDICATION: Chest and abdominal pain. History of lung cancer. COMPARISON: CT chest of 08/18/2018. FINDINGS: CT CHEST: Stable asymmetric volume loss in the right upper lobe with areas of bronchiectasis. Right perihilar mass-like consolidation is unchanged again measuring approximately 3.8 x 1.9 cm. Subjacent mediastinal lymphadenopathy is unchanged with the largest measuring 2.1 x 2.3 cm, not significantly changed allowing for differences in measurement technique. The posterior mediastinal mass with invasion of the adjacent vertebrae is unchanged measuring 4.9 x 3.2 cm. No new mediastinal or hilar lymphadenopathy. Cardiomegaly is unchanged. Atherosclerotic aorta. No pneumothorax. No pleural effusion. No new pulmonary masses or consolidations. Old nonunited posterior left rib fractures. CT ABDOMEN AND PELVIS: There is a small amount of pneumoperitoneum which is new since prior exam. A small amount of free fluid is also present throughout the abdomen and pelvis. Stomach is partially filled with fluid and air. There are no diluted loops of small bowel. While discrete perforation site is not identified, there is mild irregularity of the ascending colon near the hepatic flexure which could be potential source of perforation. Multiple small bowel loops have wall thickening likely due to reactive enteritis. Unenhanced liver is grossly normal. Gallbladder is normally distended without radiopaque gallstones. The spleen and pancreas are grossly normal. No adrenal mass. No renal or ureteral stones. Urinary bladder is normally distended without wall thickening. No concerning focal osseous lesions. No abdominopelvic lymphadenopathy. IMPRESSION: CHEST: 1. No change in CT chest to indicate an acute process. 2. Post treatment changes and metastatic disease are unchanged since 08/18/2015. ABDOMEN AND PELVIS: 1. Pneumoperitoneum with a small amount of fluid is compatible with hollow viscus perforation. While the exact source is not identified, the two most likely sites of perforation would be the ascending colon versus the body of the stomach. 2. Enteritis within the left lower quadrant is likely reactive. 3. No features of metastatic disease on noncontrast imaging. Findings were called to Dr. Christensen by Dr. Az Miranda at 7:34 a.m. on 09/07/2018. Dictated on workstation # [id number] Dict: 09/07/18 0724 Trans: 09/07/18 0835 [facility] [id number] Interpreted by: AZ MIRANDA MD Critical Care Note Critical Care Start Time: 06:05 Stop Time: 08:37 Departure Impression Primary Impression: Shock, septic Additional Impressions: Metastatic squamous cell carcinoma to lung Qualified Codes: C78.01 - Secondary malignant neoplasm of right lung Acute renal failure Qualified Codes: N17.9 - Acute kidney failure, unspecified COPD exacerbation Intra-abdominal free air of unknown etiology Disposition: 09 ADMITTED INPATIENT Condition: Critical Admissions Decision to Admit Reason: Admit from ER (General) Decision to Admit/Date: Sep 07, 2018 Time/Decision to Admit Time: 06:05 Departure-Patient Inst. Referrals: BEA WAHL MD (PCP/Family) Primary Care Physician Copy Copies To 1: BEA WAHL MD, JOSHUA T MD Sep 07, 2018 07:00
[2018-09-07 07:22] LABS: ANISOCYTOSIS SLIGHT; BAND NEUTROPHILS 26 %; BASOPHILS % (MANUAL) 0 %; EOSINOPHILS % (MANUAL) 0 %; LYMPHOCYTES % (MANUAL) 2 %; METAMYELOCYTES % 2 %; MONOCYTES % (MANUAL) 1 %; NEUTROPHILS % (MANUAL) 69 %
--- NOTE | 2018-09-07 07:34 | Diagnostic Imaging Report ---
INDICATION: History of lung cancer. COMPARISON: Chest radiograph of 08/26/18. FINDINGS: Right upper lobe masslike consolidation and pleural thickening is unchanged. Architectural distortion associated with this region also similar. No new airspace consolidations. Stable cardiomegaly. No pneumothorax. IMPRESSION: Stable exam compared to 08/26/2018. Chronic changes in the right upper lung are likely due to patient's known lung cancer and associated post treatment change. Dictated by: Dictated on workstation # [id number]
[2018-09-07] MEDS ORDERED: VANCOMYCIN INJECTION 1,000 MG in NS (IVPB) 250 ML IV ONE (07:45)
[2018-09-07] MEDS ORDERED: FLUCONAZOLE 200 MG/100 ML 100 ML IV ONE (07:45)
[2018-09-07] MEDS ORDERED: PANTOPRAZOLE 40 MG (PROTONIX) VIAL IV ONE (07:45)
--- NOTE | 2018-09-07 08:01 | History & Physical-Surgical ---
History of Present Illness History of Present Illness Reason for visit/HPI CC: abdominal pain. patient is a 62 year old male who recently having working up for metastatic lung cancer. He began having worsening reflux and back pain that began yesterday and saw his pcp. Patient states his abdomen continued to have increasing pain and last night felt a pop. Pain is sever all over. Nothing making better and any movements make worse. He had a ct scan that demonstrates free air from hollow viscus perforation suspect gastric or ascending colon which I reviewed. Patient with some hypotension but improved with IV fluids. Denies any nausea or emesis, fever sweats chills shortness of breath or chest pain. Date of Admission T Date Seen by a Provider: Sep 07, 2018 Time Seen by a Provider: 07:15 I consulted on this patient on 09/07/18 07:56 Attending Physician Admitting Physician Jeffery Quinn MD Consult Allergies and Home Medications Allergies Coded Allergies: iodine (Verified Allergy, Unknown, 09/25/05) Home Medications Amlodipine Besylate 10 Mg Tablet, 10 MG PO DAILY, (Reported) Amoxicillin/Potassium Clav 1 Each Tablet, 1 EACH PO BID Prescribed by: LUÍS TRAN on 08/27/18 1026 Cetirizine HCl 10 Mg Tablet, 10 MG PO DAILY PRN for ALLERGIES, (Reported) Cyclobenzaprine HCl 10 Mg Tablet, 5 MG PO Q8H PRN for MUSCLE SPASMS, (Reported) TAKES 1/2 (10MG) TABLET Dm/PE/Acetaminophen/Doxylamine 236 Ml Liquid, 30 ML PO HS PRN for SLEEP, ( Reported) Fluconazole 200 Mg Tablet, 200 MG PO DAILY Prescribed by: LUÍS TRAN on 08/27/18 1026 Hydrocodone Bit/Acetaminophen 1 Tab Tab, 1-2 EACH PO Q6H PRN for PAIN-MODERATE Prescribed by: ANDREW DONG on 08/18/18 1852 Mv,Minerals/FA/Lycopene/Ginkgo 1 Each Tablet, 1 TAB PO DAILY, (Reported) Naproxen 500 Mg Tablet, 500 MG PO BID, (Reported) Patient Home Medication List Home Medication List Reviewed: Yes Past Ammbmvz-Ygohas-Jufypp Hx Patient Social History Alcohol Use: Denies Use Smoking Status: Current Everyday Smoker Type Used: Cigarettes 2nd Hand Smoke Exposure: Yes Recent Foreign Travel: No Contact w/Someone Who Travel: No Recent Hopitalizations: No Immunizations Up To Date Tetanus Booster (TDap): Unknown PED Vaccines UTD: Yes Seasonal Allergies Seasonal Allergies: No Surgeries History of Surgeries: Yes (r knee X2, r wrist, LEFT HAND, VERTEBRE C2, bronchoscopy 2 with biopsy) Surgeries: Orthopedic Respiratory History of Respiratory Disorde: Yes (metastatic squamous cell lung cancer) Respiratory Disorders: Asthma, Pneumonia, COPD Cardiovascular History of Cardiac Disorders: Yes (mitrial valve prolapse, ORTHOSTATIC) Cardiac Disorders: Atrial Fibrillation, Hypertension Neurological History of Neurological Disord: No Reproductive System Hx Reproductive Disorders: No Sexually Transmitted Disease: No HIV/AIDS: No Genitourinary History of Genitourinary Disor: No Gastrointestinal History of Gastrointestinal Di: Yes Gastrointestinal Disorders: Chronic Constipation Musculoskeletal History of Musculoskeletal Dis: Yes (NECK INJURY, BACK PAIN) Musculoskeletal Disorders: Arthritis Endocrine History of Endocrine Disorders: No HEENT History of HEENT Disorders: No Loss of Vision: Denies Hearing Impairment: Denies Cancer History of Cancer: Yes Cancer: Lung (metastatic squamous cell lung cancer) Psychosocial History of Psychiatric Problem: Yes Behavioral Health Disorders: Suicide Attempts, Depression Integumentary History of Skin or Integumenta: No Blood Transfusions History of Blood Disorders: No Adverse Reaction to a Blood Tr: No Family Medical History Significant Family History: No Pertinent Family Hx Family Medial History: Abdominal aortic aneurysm G8 SISTER, Arthritis 19 FATHER 19 MOTHER Diabetes mellitus 19 MOTHER (Borderline diabetic) No Family History of: AIDS Cale's disease Alcoholism Alzheimer's disease Aphasia Asthma Cancer of mouth Cardiovascular disease Cataracts Colon cancer Completed stroke Congenital disease Congenital heart disease Coronary thrombosis Cystic fibrosis Deafness or hearing loss Dementia Drug abuse Dysphasia Fibrocystic disease of breast Gastroenteritis Glaucoma Headache disorder Hypercholesterolemia Hypertension Infertility Kidney disease Myocardial infarction Neoplasm Not obtainable due to adoption Osteoporosis Parkinson's disease Prostate cancer Psychosocial problem Respiratory disorder Seizure disorder Severe allergy Thyroid disease Tuberculosis Visual disorder Review of Systems Constitutional: no symptoms reported EENTM: no symptoms reported Respiratory: no symptoms reported Cardiovascular: no symptoms reported Gastrointestinal: see HPI Genitourinary: no symptoms reported Musculoskeletal: see HPI Skin: no symptoms reported Psychiatric/Neurological: No Symptoms Reported Physical Exam Vital Signs Vital Signs - First Documented 09/07/18 06:42 O2 Delivery Nasal Cannula O2 Flow Rate 2.00 Capillary Refill : Less Than 3 Seconds Height, Weight, BMI Height: 5'9.00" Weight: 169lbs. 0.0oz. 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 Norm as Tested Skin: Normal Color, Warm/Dry Lymphatic: No Adenopathy Data Review Labs Laboratory Tests 09/07/18 05:45: White Blood Count 50.3*H, Red Blood Count 3.68L, Hemoglobin 10.8L, Hematocrit 33L, Mean Corpuscular Volume 91, Mean Corpuscular Hemoglobin 29, Mean Corpuscular Hemoglobin Concent 32, Red Cell Distribution Width 15.0H, Platelet Count 806H, Mean Platelet Volume 10.4, Neutrophils (%) (Auto) 95H, Lymphocytes ( %) (Auto) 2L, Monocytes (%) (Auto) 3, Eosinophils (%) (Auto) 0, Basophils (%) ( Auto) 0, Neutrophils # (Auto) 47.7H, Lymphocytes # (Auto) 1.0, Monocytes # (Auto ) 1.4H, Eosinophils # (Auto) 0.2, Basophils # (Auto) 0.1, Neutrophils % (Manual ) 69, Lymphocytes % (Manual) 2, Monocytes % (Manual) 1, Eosinophils % (Manual) 0 , Basophils % (Manual) 0, Metamyelocytes % 2, Band Neutrophils 26, Anisocytosis SLIGHT, Prothrombin Time 15.2H, INR Comment 1.2, Activated Partial Thromboplast Time 30, Sodium Level 139, Potassium Level 4.6, Chloride Level 103, Carbon Dioxide Level 21, Anion Gap 15H, Blood Urea Nitrogen 22H, Creatinine 2.07H, Estimat Glomerular Filtration Rate 33, BUN/Creatinine Ratio 11, Glucose Level 115H, Calcium Level 12.6H, Corrected Calcium 13.2H, Magnesium Level 2.0, Total Bilirubin 0.8, Aspartate Amino Transf (AST/SGOT) 18, Alanine Aminotransferase ( ALT/SGPT) 11, Alkaline Phosphatase 159H, Total Protein 7.1, Albumin 3.2, Amylase Level 238H, Lipase 128H, Serum Alcohol < 10 09/07/18 06:45: Lactic Acid Level 3.56*H Assessment/Plan Assessment/Plan Admission Diagonsis hollow viscus perforation severe sepsis acute renal failure metastatic lung cancer Admission Status: Inpatient Order (span 2 midnights) Reason for Inpatient Admission: patient to have surgical intervention and antibiotics greater than 2 midnights Assessment/Plan hollow viscus perforation severe sepsis acute renal failure metastatic lung cancer zosyn, vancomycin, diflucan receiving IV fluid and bolus protonix 80mg then drip discussed all options including surgical intervention of exploratory laparotomy all other indicated procedures patient and family understand all risk and benefits with possibility of not having something that is fixable. we also discussed comfort care. they understand all options and wish to proceed with surgical intervention resuscitate and to or ALYX BIRD DO Sep 07, 2018 08:01
[2018-09-07] MEDS ORDERED: fentaNYL INJECTION 100 MCG/2 ML AMP ONE (08:07)
[2018-09-07] MEDS ORDERED: MIDAZOLAM 2 MG/2 ML (VERSED) VIAL ONE (08:08)
[2018-09-07] MEDS ORDERED: NS IV 1000 ML 1,000 ML ONE ×3 (08:31→12:27)
--- NOTE | 2018-09-07 08:36 | Diagnostic Imaging Report ---
PROCEDURE: CT chest, abdomen, and pelvis without contrast. TECHNIQUE: Multiple contiguous axial images were obtained through the chest, abdomen, and pelvis without the use of intravenous contrast. INDICATION: Chest and abdominal pain. History of lung cancer. COMPARISON: CT chest of 08/18/2018. FINDINGS: CT CHEST: Stable asymmetric volume loss in the right upper lobe with areas of bronchiectasis. Right perihilar mass-like consolidation is unchanged again measuring approximately 3.8 x 1.9 cm. Subjacent mediastinal lymphadenopathy is unchanged with the largest measuring 2.1 x 2.3 cm, not significantly changed allowing for differences in measurement technique. The posterior mediastinal mass with invasion of the adjacent vertebrae is unchanged measuring 4.9 x 3.2 cm. No new mediastinal or hilar lymphadenopathy. Cardiomegaly is unchanged. Atherosclerotic aorta. No pneumothorax. No pleural effusion. No new pulmonary masses or consolidations. Old nonunited posterior left rib fractures. CT ABDOMEN AND PELVIS: There is a small amount of pneumoperitoneum which is new since prior exam. A small amount of free fluid is also present throughout the abdomen and pelvis. Stomach is partially filled with fluid and air. There are no diluted loops of small bowel. While discrete perforation site is not identified, there is mild irregularity of the ascending colon near the hepatic flexure which could be potential source of perforation. Multiple small bowel loops have wall thickening likely due to reactive enteritis. Unenhanced liver is grossly normal. Gallbladder is normally distended without radiopaque gallstones. The spleen and pancreas are grossly normal. No adrenal mass. No renal or ureteral stones. Urinary bladder is normally distended without wall thickening. No concerning focal osseous lesions. No abdominopelvic lymphadenopathy. IMPRESSION: CHEST: 1. No change in CT chest to indicate an acute process. 2. Post treatment changes and metastatic disease are unchanged since 08/18/2015. ABDOMEN AND PELVIS: 1. Pneumoperitoneum with a small amount of fluid is compatible with hollow viscus perforation. While the exact source is not identified, the two most likely sites of perforation would be the ascending colon versus the body of the stomach. 2. Enteritis within the left lower quadrant is likely reactive. 3. No features of metastatic disease on noncontrast imaging. Findings were called to Dr. Christensen by Dr. Az Rascon at 7:34 a.m. on 09/07/2018. Dictated by: Dictated on workstation # [id number]
[2018-09-07] MEDS: LACTATED RINGERS 1,000 ML IV PRN ×2 (08:45→10:20)
[2018-09-07] MEDS ORDERED: HEParin (CENTRAL IV FLUSH) 500 UNIT/5 ML SYR ONE (09:24)
[2018-09-07] MEDS ORDERED: DEXAMETHASONE 10 MG/ML (DECADRON) 1 ML VIAL ONE (10:32)
[2018-09-07] MEDS ORDERED: ONDANSETRON 4 MG/2 ML (SDV) Z0FRAN ONE (10:32)
[2018-09-07] MEDS ORDERED: BUPIVACAINE 0.5% 30 ML (SENSORCAINE) VIAL ONE (10:32)
[2018-09-07] MEDS ORDERED: ROCURONIUM 10 MG/ML 5 ML SYRINGE IV ONE (10:32)
[2018-09-07] MEDS ORDERED: SUCCINYLCHOLINE INJ 100 MG/5 ML SYR ONE (10:32)
[2018-09-07] MEDS ORDERED: proPOfol 200 MG/20 ML (DIPRIVAN) VIAL IV ONE (10:34)
[2018-09-07] MEDS ORDERED: PHENYLEPHRINE 100 MCG/ML 10 ML (ANESTHESIA) SYR ONE (10:34)
--- NOTE | 2018-09-07 10:58 | Progress Note-Post Operative ---
Post-Operative Progess Note Surgeon (s)/Peeled Potato Inspector (s) Surgeon ALYX BIRD DO Peeled Potato Inspector: Dr. Masters Pre-Operative Diagnosis hollow viscus perforation Post-Operative Diagnosis pyloric perforation Procedure & Operative Findings Date of Procedure 09/07/18 Procedure Performed/Findings right IJ central line placement u/s guided exploratory laparotomy biopsy of pyloric perforation les patch of pyloric perforation Anesthesia Type gen Estimated Blood Loss Estimated blood loss (mL): min Specimens/Packing Specimens Removed pyloric perforation Packin yariel drain ALYX BIRD DO Sep 07, 2018 10:58
[2018-09-07] MEDS ORDERED: PROPOFOL DRIP (ICU) 100 ML IV ONE (10:59)
[2018-09-07] MEDS ORDERED: morphine INJ 10 MG/ML 1ML (SYR OR VIAL) ONE (11:21)
[2018-09-07] MEDS ORDERED: VANCOMYCIN INJECTION 0.1 MG in NS (IVPB) 250 ML IV SCH (11:30)
[2018-09-07] MEDS ORDERED: morphine INJ 10 MG/ML 1ML (SYR OR VIAL) IVP ONE (11:30)
--- NOTE | 2018-09-07 11:30 | NUR ---
Pastoral care visit, pt intubated no family at bedside.
[2018-09-07] MEDS ORDERED: SEVOFLURANE (ULTANE) 15 ML INHAL SOLN ONE (11:31)
--- NOTE | 2018-09-07 11:46 | Diagnostic Imaging Report ---
INDICATION: Evaluate line placement. Comparison made with prior examination 09/07/2018. FINDINGS: There is cardiomegaly. ET and NG tubes are in satisfactory position. There has been interval placement of a right internal jugular central venous catheter which has tip in superior vena cava. Some venous congestion. There is unchanged right upper lobe atelectasis and/or pneumonitis. There is no pleural effusion or pneumothorax. IMPRESSION: Interval placement of a right internal jugular central venous catheter which is in satisfactory position. Right upper lobe atelectasis and/or pneumonitis. Cardiomegaly and some central pulmonary venous congestion. Dictated by: Dictated on workstation # [id number]
[2018-09-07] MEDS ORDERED: NOREPINEPHRINE 4 MG/4 ML (LEVOPHED) AMP IV ONE (12:21)
[2018-09-07] MEDS ORDERED: NS (IVPB) 250 ML ONE (12:24)
--- NOTE | 2018-09-07 12:25 | OPERATIVE REPORT ---
DATE OF SERVICE: 09/07/2018 PREOPERATIVE DIAGNOSIS: Hollow viscus perforation. POSTOPERATIVE DIAGNOSIS: Pyloric perforation. PROCEDURES: Right internal jugular vein central line placement ultrasound-guided, exploratory laparotomy, biopsy of pyloric perforation and James patch of pyloric perforation. SURGEON: Alyx Alegre DO. SALES TECHNICIAN HOME THEATER: Dr. Masters, who assisted in retraction, dissection and closure. ANESTHESIA: General. ESTIMATED BLOOD LOSS: Minimal. COMPLICATIONS: None. INDICATIONS: This patient is a 62-year-old male with recent diagnosis of metastatic lung cancer to the bone. He understands the risks. The patient presented to the emergency department with abdominal pain. The patient saw his primary care provider yesterday having worsening reflux symptoms. The patient's pain continued to increase and went for further evaluation in the emergency department. The patient had a peritoneal abdomen and the patient had CT scan, which demonstrated free air cyst wall for hollow viscus perforation. Risks and benefits and alternatives were discussed and the patient and the family wished to proceed with the procedure. Consent was signed in the chart. PROCEDURE: The patient was taken to the operating suite, was prepped and draped in a sterile fashion for central line placement. Timeout was performed. The right internal jugular vein was inspected using ultrasound. The right internal vein was accessed with guidance of ultrasound removing dark nonpulsatile blood. A guidewire was inserted through the needle and the needle was removed. An 11 blade scalpel was used to make a stab incision and a dilator was then advanced over the wire and removed. Triple lumen catheter was then advanced over the guidewire and the wire was removed. All ports were accessed and flushed without difficulty. The catheter was secured with 3-0 silk suture. The area was washed and dried and sterile bandage was applied. The patient was then reprepped and draped in a sterile fashion on the abdomen. Midline incision was then made. A lot of purulent material was present within the abdomen. One liter was suctioned out in total. A culture was obtained as well. The abdomen was then begun to be inspected and the stomach had normal appearance. Right at the pylorus, there was approximately a 6 mm perforation site. This was then irrigated with the copious amounts of irrigation and using Debbie and DeBgilles, biopsy of this area of the edge was obtained. Using 2-0 Vicryl sutures, the perforation was then closed. A piece of omentum was then brought up to this area and also secured to the site of perforation performing a James patch. The abdomen was then irrigated with a total of 9 liters of saline and suctioned until cleared. An NG tube was placed and kept within the stomach. A 19 Aidan drain was brought out through a stab incision in the right upper quadrant and placed at the site of the James patch. The small bowel and colon all had normal appearance. At this time, the abdomen was then closed with 1-0 looped PDS. The wound was then irrigated with copious amounts of irrigation and the skin was then closed using darren. The drain was secured using 3-0 silk suture. The patient tolerated the procedure. He is still in critical condition. Chest x-ray is pending for central line placement. RECOMMENDATIONS: The patient to be in the ICU. Job ID: [id number] DocumentID: [id number] Dictated Date: 09/07/2018 11:04:23 Hydraulic Rockbreaker Operator Date: 09/07/2018 12:25:00 Dictated By: ALYX ALEGRE DO
[2018-09-07] MEDS ORDERED: NS IV 1000 ML 1,000 ML IV SCH (12:30)
[2018-09-07] MEDS ORDERED: NOREPINEPHRINE 4 MG in NS (IVPB) 250 ML IV SCH (12:30)
[2018-09-07 12:36] LABS: ABG BASE EXCESS -6.9 MMOL/L (-2.5-2.5); ABG OXYGEN SATURATION 94 % (94-100); ABG PCO2 63 MMHG (35-45); ABG PO2 88 MMHG (79-93); ABG TCO2 22.8 MMOL/L (21.0-31.0)
[2018-09-07 12:37] LABS: BASOPHILS % (AUTO) 0 % (0-10); EOSINOPHILS # (AUTO) 0.1 10^3/uL (0.0-0.3); EOSINOPHILS % (AUTO) 1 % (0-10); HEMATOCRIT 30 % (40-54); HEMOGLOBIN 9.4 G/DL (13.3-17.7); LYMPHOCYTES # (AUTO) 0.6 X 10^3 (1.0-4.0); LYMPHOCYTES % (AUTO) 2 % (12-44); MEAN CORPUSCULAR HEMOGLOBIN 29 PG (25-34); MEAN CORPUSCULAR HGB CONC 32 G/DL (32-36); MEAN CORPUSCULAR VOLUME 92 FL (80-99); MEAN PLATELET VOLUME 9.7 FL (7.4-10.4); MONOCYTES # (AUTO) 0.1 X 10^3 (0.0-1.0); MONOCYTES % (AUTO) 0 % (0-12); NEUTROPHILS # (AUTO) 23.2 X 10^3 (1.8-7.8); NEUTROPHILS % (AUTO) 97 % (42-75); PLATELET COUNT 384 10^3/uL (130-400); RED CELL DISTRIBUTION WIDTH 14.9 % (10.0-14.5)
[2018-09-07 12:41] LABS: ABG PH 7.14 (7.37-7.43); INSPIRED O2 40%; PATIENT TEMP 98.2; VENTILATOR YES
[2018-09-07] MEDS ORDERED: SODIUM BICARB 8.4% 50 MEQ/50 ML (ABBOTT) SYR ONE (12:46)
[2018-09-07 12:55] LABS: ALBUMIN 2.1 GM/DL (3.2-4.5); BILIRUBIN,TOTAL 0.8 MG/DL (0.1-1.0); CALCIUM 9.5 MG/DL (8.5-10.1); CREATININE SERUM 2.03 MG/DL (0.60-1.30); MAGNESIUM 1.5 MG/DL (1.8-2.4); PHOSPHORUS 5.7 MG/DL (2.3-4.7); POTASSIUM 4.9 MMOL/L (3.6-5.0); TOTAL PROTEIN 4.6 GM/DL (6.4-8.2)
[2018-09-07] MEDS ORDERED: NS 1000 ML IV BAG IV ONE ×2 (13:00→14:30)
[2018-09-07] MEDS ORDERED: NS IV 1000 ML 2,000 ML IV ONE (13:00)
[2018-09-07] MEDS ORDERED: SODIUM BICARB 8.4% 50 MEQ/50 ML (ABBOTT) SYR IV NR (13:00)
[2018-09-07] MEDS: PROPOFOL DRIP (ICU) 100 ML IV SCH (13:14)
[2018-09-07] MEDS: NOREPINEPHRINE 4 MG in NS (IVPB) 250 ML IV SCH ×3 (13:19→21:44)
--- NOTE | 2018-09-07 13:25 | NUR ---
CR 2.03; CR CL ~37; WT 77 KG; VANCO 1500 MG IV BOLUS THEN 1250 MG IV Q24H; TROUGH AFTER 2ND DOSE
[2018-09-07] MEDS ORDERED: VASOPRESSIN INJECTION 20 UNIT/ML VIAL ONE ×2 (13:27→13:39)
[2018-09-07] MEDS ORDERED: NS (IVPB) 100 ML ONE (13:27)
[2018-09-07] MEDS ORDERED: HYDROCORTISONE 100 MG/2 ML (Solu-CORTEF) VIAL ONE (13:27)
[2018-09-07] MEDS ORDERED: HYDROCORTISONE 100 MG/2 ML (Solu-CORTEF) VIAL IV ONE (13:30)
[2018-09-07] MEDS ORDERED: VANCOMYCIN 1500 MG/NS 500 ML IVPB IV NR ×2 (13:30)
[2018-09-07] MEDS: PANTOPRAZOLE INJECTION 200 MG in NS (IVPB) 100 ML IV SCH (13:45)
--- NOTE | 2018-09-07 13:59 | History & Physical-Hospitalist ---
CATARINA GILLESPIE 09/07/18 1358: History of Present Illness HPI/Chief Complaint CC: Perforated pyloric ulcer HPI: This is a 62-year-old white male who is currently intubated after an emergent surgery for free air on CT scan and revealing perforated pyloric ulcer. Patient has a history of lung cancer squamous cell with metastasis and overall his prognosis is extremely poor at baseline. Reviewed operative notes labs and current medication list. He is currently intubated on pressor therapy aggressive IV fluids and IV antibiotics broad spectrum. Source: family, RN/MD Exam Limitations: clinical condition Date Seen 09/08/18 Time Seen by a Provider: 10:00 Attending Physician Cesar Alegre DO PCP Jeffery Quinn MD Referring Physician Date of Admission Home Medications & Allergies Home Medications Reviewed patient Home Medication Reconciliation performed by pharmacy medication reconciliations optical laboratory technician and/or nursing. Patients Allergies have been reviewed. Allergies Allergies Coded Allergies iodine (Verified Allergy, Unknown, 09/25/05) Past Ozmdkip-Sqmpkq-Sffsta Hx Past Med/Social Hx: Reviewed Nursing Past Med/Soc Hx, Reviewed and Corrections made Patient Social History Alcohol Use: Denies Use Number of Drinks Today: AA Alcohol Beverage of Choice: Beer Recreational Drug Use: No Smoking Status: Current Everyday Smoker Type Used: Cigarettes 2nd Hand Smoke Exposure: Yes Recent Foreign Travel: No Contact w/other who traveled: No Recent Hopitalizations: No Recent Infectious Disease Expo: No Immunizations Up To Date Tetanus Booster (TDap): Unknown Pediatric: Yes Seasonal Allergies Seasonal Allergies: No Past Medical History Surgeries: Orthopedic Respiratory: Asthma, COPD Cardiac: Atrial Fibrillation, Hypertension Reproductive: No Sexually Transmitted Disease: No HIV/AIDS: No Gastrointestinal: Chronic Constipation Musculoskeletal: Arthritis Loss of Vision: Denies Hearing Impairment: Denies Cancer: Lung (metastatic squamous cell lung cancer) Psychosocial: Suicide Attempts, Depression History of Blood Disorders: No Adverse Reaction to Blood Short: No Family History Reviewed Nursing Family Hx Abdominal aortic aneurysm G8 SISTER, Arthritis 19 FATHER 19 MOTHER Diabetes mellitus 19 MOTHER (Borderline diabetic) No Family History of: AIDS Ruston's disease Alcoholism Alzheimer's disease Aphasia Asthma Cancer of mouth Cardiovascular disease Cataracts Colon cancer Completed stroke Congenital disease Congenital heart disease Coronary thrombosis Cystic fibrosis Deafness or hearing loss Dementia Drug abuse Dysphasia Fibrocystic disease of breast Gastroenteritis Glaucoma Headache disorder Hypercholesterolemia Hypertension Infertility Kidney disease Myocardial infarction Neoplasm Not obtainable due to adoption Osteoporosis Parkinson's disease Prostate cancer Psychosocial problem Respiratory disorder Seizure disorder Severe allergy Thyroid disease Tuberculosis Visual disorder No Pertinent Family Hx Review of Systems ROS-Unable to Obtain: unable to ascertain due to intubation at time of my exam Constitutional: see HPI Physical Exam Physical Exam Vital Signs Vital Signs - First Documented 09/07/18 11:14 FiO2 100 Capillary Refill : Less Than 3 Seconds Height, Weight, BMI Height: 5'9.00" Weight: 171lbs. 0oz. 77.508877km; 25.0 BMI Method:Stated General Appearance: Chronically ill, Other (intubated) Respiratory: Crackles, Decreased Breath Sounds, Wheezing Cardiovascular: Regular Rate, Rhythm, No Edema Skin: Normal Color, Warm/Dry Results Results/Procedures Labs Laboratory Tests 09/07/18 05:45 09/07/18 12:26 09/08/18 03:35 Patient resulted labs reviewed. Assessment/Plan Admission Diagnosis Septic shock Respiratory failure ventilator dependent Pneumonia Perforated pyloric ulcer Peritonitis Profound leukocytosis of 78,000 Smoker Squamous cell lung cancer with metastasis Plan: Intubation Antibiotics IV fluids Pressor therapy Admission Status: Inpatient Order (span 2 midnights) Reason for Inpatient Admission: Septic shock will require 8 days of hospital stay Diagnosis/Problems Diagnosis/Problems (1) Perforated abdominal viscus Status: Acute (2) Intra-abdominal free air of unknown etiology Status: Acute (3) Metastatic squamous cell carcinoma to lung Status: Acute Qualifiers: Laterality: right Qualified Codes: C78.01 - Secondary malignant neoplasm of right lung (4) Shock, septic Status: Acute (5) Acute renal failure Status: Acute Qualifiers: Acute renal failure type: unspecified Qualified Codes: N17.9 - Acute kidney failure, unspecified (6) COPD exacerbation Status: Acute (7) Hypercalcemia Status: Acute (8) Pneumonia Status: Acute (9) Hyponatremia Status: Acute (10) Atrial fibrillation Status: Chronic (11) Alcoholism Status: Chronic ARABELLA BAIG MEDICAL STUDENT 09/08/18 0725: History of Present Illness HPI/Chief Complaint CC: Abdominal pain HPI: This is a 62 yo M w/ a hx of squamous cell carcinoma of the lung diagnosed within the last month who presented to the ER on Thursday morning with severe abdominal pain and dyspnea. Pt states he saw his PCP Thursday for what felt to him like increased GERD symptoms and associated back pain. On Thursday evening while eating dinner he felt "something pop" in his stomach and the pain worsened immensely. On arrival to the ED he was noted to be hypotensive and likely peritoneal with signs of an acute abdomen. CT/AP showed perforation and he was taken to OR for emergent surgery by Dr. Alegre. He was found to have a perforation of his pylorus which was repaired with James patch. Notably, the pt was still hypotensive after 3 L boluses of fluid on way to OR, indicating septic shock. Pt is DNR but desired surgery so was intubated at that time. Source: family, RN/MD Exam Limitations: clinical condition Time Seen by a Provider: 17:30 Past Cuxnqwt-Xokemz-Jccipt Hx Past Med/Social Hx: Reviewed and Corrections made Patient Social History Alcohol Use: Denies Use Alcohol Beverage of Choice: Beer Smoking Status: Current Everyday Smoker Type Used: Cigarettes Recent Foreign Travel: No Contact w/other who traveled: No Recent Hopitalizations: No Recent Infectious Disease Expo: No Past Medical History Surgeries: Orthopedic Respiratory: Asthma, COPD Cardiac: Atrial Fibrillation, Heart Murmur, Hypertension Gastrointestinal: Chronic Constipation Musculoskeletal: Arthritis Family History Abdominal aortic aneurysm G8 SISTER, Arthritis 19 FATHER 19 MOTHER Diabetes mellitus 19 MOTHER (Borderline diabetic) No Family History of: AIDS Cale's disease Alcoholism Alzheimer's disease Aphasia Asthma Cancer of mouth Cardiovascular disease Cataracts Colon cancer Completed stroke Congenital disease Congenital heart disease Coronary thrombosis Cystic fibrosis Deafness or hearing loss Dementia Drug abuse Dysphasia Fibrocystic disease of breast Gastroenteritis Glaucoma Headache disorder Hypercholesterolemia Hypertension Infertility Kidney disease Myocardial infarction Neoplasm Not obtainable due to adoption Osteoporosis Parkinson's disease Prostate cancer Psychosocial problem Respiratory disorder Seizure disorder Severe allergy Thyroid disease Tuberculosis Visual disorder Review of Systems Constitutional: No fever Respiratory: short of breath Cardiovascular: No chest pain Gastrointestinal: abdominal pain, constipation; No diarrhea; heartburn; No nausea, No vomiting Musculoskeletal: no symptoms reported Skin: no symptoms reported Psychiatric/Neurological: No Symptoms Reported Physical Exam Physical Exam General Appearance: WD/WN, Moderate Distress Eyes: Bilateral Eye Normal Inspection, Bilateral Eye PERRL, Bilateral Eye EOMI HEENT: Other (ET tube in place) Neck: Full Range of Motion, Normal Inspection, Non Tender, Supple Respiratory: Chest Non Tender, Lungs Clear, Normal Breath Sounds, No Accessory Muscle Use, No Respiratory Distress Cardiovascular: Regular Rate, Rhythm, No Edema, Normal Peripheral Pulses, Systolic Murmur Gastrointestinal: Normal Bowel Sounds, No Organomegaly, No Pulsatile Mass, Soft , Other (Midline laparatomy incision w/ dressing, no oozing or erythema) Neurologic/Psychiatric: Other (sedated) Skin: Normal Color, Warm/Dry Results Results/Procedures Imaging: Reviewed Imaging Films, Reviewed Imaging Report Assessment/Plan Admission Diagnosis Septic shock due to perforated pylorus Reason for Inpatient Admission: Septic shock requiring ICU level care Assessment and Plan Assessment: Septic shock PREM Perforated pylorus s/p Ex Lap w/ james patch repair Squamous cell carcinoma of lung DNR Plan: ICU Sepsis protocol Consult pulm for ventilator management IV broad spectrum abx Prognosis guarded Pt needs to f/u w/ Oncology if he survives his current condition Critical Care Critically Ill Patient CATARINA GILLESPIE DO Sep 07, 2018 13:58 ARABELLA BAIG MEDICAL STUDENT Sep 08, 2018 07:25
[2018-09-07] MEDS: RT-ALBUTEROL/IPRATROPIUM 3 ML (DUONEB) VIAL INH SCH ×3 (14:14→21:49)
[2018-09-07] MEDS ORDERED: VASOPRESSIN 40 UNITS/NS 100 ML DRIP IV SCH ×2 (14:15)
[2018-09-07] MEDS ORDERED: NS (IVPB) 0 ML ONE (14:33)
--- NOTE | 2018-09-07 14:41 | Pulmonary Consultation ---
History of Present Illness History of Present Illness Date of Consultation 09/07/18 14:39 Time Seen by Provider: 07:00 Date of Admission Allergies and Home Medications Allergies Coded Allergies: iodine (Verified Allergy, Unknown, 09/25/05) Home Medications Amlodipine Besylate 10 Mg Tablet, 10 MG PO DAILY, (Reported) Amoxicillin/Potassium Clav 1 Each Tablet, 1 EACH PO BID Prescribed by: LUÍS TRAN on 08/27/18 1026 Cetirizine HCl 10 Mg Tablet, 10 MG PO DAILY PRN for ALLERGIES, (Reported) Cyclobenzaprine HCl 10 Mg Tablet, 5 MG PO Q8H PRN for MUSCLE SPASMS, (Reported) TAKES 1/2 (10MG) TABLET Dm/PE/Acetaminophen/Doxylamine 236 Ml Liquid, 30 ML PO HS PRN for SLEEP, ( Reported) Fluconazole 200 Mg Tablet, 200 MG PO DAILY Prescribed by: LUÍS TRAN on 08/27/18 1026 Hydrocodone Bit/Acetaminophen 1 Tab Tab, 1-2 EACH PO Q6H PRN for PAIN-MODERATE Prescribed by: ANDREW DONG on 08/18/18 1852 Mv,Minerals/FA/Lycopene/Ginkgo 1 Each Tablet, 1 TAB PO DAILY, (Reported) Naproxen 500 Mg Tablet, 500 MG PO BID, (Reported) Past Lnyekai-Ukfkhe-Snxpjd Hx Past Med/Social Hx: Reviewed and Corrections made Patient Social History Alcohol Use: Denies Use Number of Drinks Today: AA Alcohol Beverage of Choice: Beer Recreational Drug Use: No Smoking Status: Current Everyday Smoker Type Used: Cigarettes 2nd Hand Smoke Exposure: Yes Recent Foreign Travel: No Contact w/Someone Who Travel: No Recent Infectious Disease Expo: No Recent Hopitalizations: Yes Immunizations Up To Date Tetanus Booster (TDap): Unknown PED Vaccines UTD: Yes Seasonal Allergies Seasonal Allergies: No Past Medical History Surgeries: No Orthopedic Respiratory: Yes COPD Currently Using CPAP: No Currently Using BIPAP: No Cardiac: No Atrial Fibrillation, Hypertension Neurological: No Reproductive Disorders: No Sexually Transmitted Disease: No HIV/AIDS: No Genitourinary: No Gastrointestinal: No Chronic Constipation Musculoskeletal: No Arthritis Endocrine: No HEENT: No Loss of Vision: Denies Hearing Impairment: Denies Cancer: No Lung (metastatic squamous cell lung cancer) Psychosocial: No Suicide Attempts, Depression Integumentary: No Blood Disorders: No Adverse Reaction/Blood Tranf: No Family Medical History Reviewed Nursing Family Hx Abdominal aortic aneurysm G8 SISTER, Arthritis 19 FATHER 19 MOTHER Diabetes mellitus 19 MOTHER (Borderline diabetic) No Family History of: AIDS Lecompton's disease Alcoholism Alzheimer's disease Aphasia Asthma Cancer of mouth Cardiovascular disease Cataracts Colon cancer Completed stroke Congenital disease Congenital heart disease Coronary thrombosis Cystic fibrosis Deafness or hearing loss Dementia Drug abuse Dysphasia Fibrocystic disease of breast Gastroenteritis Glaucoma Headache disorder Hypercholesterolemia Hypertension Infertility Kidney disease Myocardial infarction Neoplasm Not obtainable due to adoption Osteoporosis Parkinson's disease Prostate cancer Psychosocial problem Respiratory disorder Seizure disorder Severe allergy Thyroid disease Tuberculosis Visual disorder No Pertinent Family Hx Sepsis Event Evaluation Height, Weight, BMI Height: 5'9.00" Weight: 171lbs. 0.0oz. 77.853897dp; 25.3 BMI Method:Stated Exam Exam Vital Signs Date Time Temp Pulse Resp B/P (MAP) Pulse Ox O2 Delivery O2 Flow Rate FiO2 09/07/18 14:14 85 23 100 100 09/07/18 13:38 Mechanical Ventilator 09/07/18 13:14 97.9 88 09/07/18 13:00 97 15 111/47 (68) Mechanical Ventilator 60.00 09/07/18 12:34 106 09/07/18 12:00 102 15 95/59 (71) Mechanical Ventilator 40.00 09/07/18 11:14 96 16 100 100 09/07/18 08:48 67 18 85/50 (62) 97 Nasal Cannula 2.00 09/07/18 06:42 Nasal Cannula 2.00 09/07/18 05:38 98 Nasal Cannula 2.00 09/07/18 05:38 96.2 68 21 101/81 (88) 100 Nasal Cannula 2.00 I & O 09/07/18 07:00 Intake Total 1000 ml Balance 1000 ml Height & Weight Height: 5'9.00" Weight: 171lbs. 0.0oz. 77.915119jz; 25.3 BMI Method:Stated General Appearance: WD/WN, Moderate Distress HEENT: PERRL/EOMI, Normal ENT Inspection, Other (mucous membranes dry) Neck: Normal Inspection Respiratory: No Respiratory Distress, Wheezing (slight) Cardiovascular: Regular Rate, Rhythm, No Edema, No Murmur Capillary Refill: Less Than 3 Seconds Peripheral Pulses: 2+ Radial Pulses (R) Extremity: Normal Capillary Refill, Normal Inspection, Non Tender, No Pedal Edema Neurologic/Psychiatric: Alert, Oriented x3, No Motor/Sensory Deficits, Normal Mood/Affect, oven tender II-XII Norm as Tested Skin: Normal Color, Warm/Dry Lymphatic: No Adenopathy Results Lab Laboratory Tests 09/07/18 05:45 09/07/18 12:26 Assessment/Plan Assessment/Plan Acute abdomen with severe sepsis -Called Dr. Alegre to discuss need for surgery -Stat CT scan ordered Acute on chronic respiratory failure Squamous cell lung cancer dx 08/26 -Has not seen oncology yet Hx of COPD SHIRA LOPEZ DO Sep 07, 2018 14:41
--- NOTE | 2018-09-07 14:47 | Pulmonary Progress Note ---
Subjective Time Seen by a Provider: 12:00 Sepsis Event Evaluation Height, Weight, BMI Height: 5'9.00" Weight: 171lbs. 0.0oz. 77.372983vr; 25.3 BMI Method:Stated Focused Exam Lactate Level 09/07/18 06:45: Lactic Acid Level 3.56*H 09/07/18 12:55: Lactic Acid Level 2.92*H Time of Focused Exam: 07:35 Lactic Acid Level Laboratory Tests Test 09/07/18 12:55 Lactic Acid Level 2.92 MMOL/L (0.50-2.00) *H Exam Exam Vital Signs Date Time Temp Pulse Resp B/P (MAP) Pulse Ox O2 Delivery O2 Flow Rate FiO2 09/07/18 14:14 85 23 100 100 09/07/18 13:38 Mechanical Ventilator 09/07/18 13:14 97.9 88 09/07/18 13:00 97 15 111/47 (68) Mechanical Ventilator 60.00 09/07/18 12:34 106 09/07/18 12:00 102 15 95/59 (71) Mechanical Ventilator 40.00 09/07/18 11:14 96 16 100 100 09/07/18 08:48 67 18 85/50 (62) 97 Nasal Cannula 2.00 09/07/18 06:42 Nasal Cannula 2.00 09/07/18 05:38 98 Nasal Cannula 2.00 09/07/18 05:38 96.2 68 21 101/81 (88) 100 Nasal Cannula 2.00 I & O 09/07/18 07:00 Intake Total 1000 ml Balance 1000 ml Height & Weight Height: 5'9.00" Weight: 171lbs. 0.0oz. 77.985479wn; 25.3 BMI Method:Stated General Appearance: WD/WN, Moderate Distress HEENT: PERRL/EOMI, Normal ENT Inspection, Other (mucous membranes dry) Neck: Normal Inspection Respiratory: No Respiratory Distress, Wheezing (slight) Cardiovascular: Regular Rate, Rhythm, No Edema, No Murmur Capillary Refill: Less Than 3 Seconds Peripheral Pulses: 2+ Radial Pulses (R) Extremity: Normal Capillary Refill, Normal Inspection, Non Tender, No Pedal Edema Neurologic/Psychiatric: Alert, Oriented x3, No Motor/Sensory Deficits, Normal Mood/Affect, tip mender II-XII Norm as Tested Skin: Normal Color, Warm/Dry Lymphatic: No Adenopathy Results Lab Laboratory Tests 09/07/18 05:45 09/07/18 12:26 Assessment/Plan Assessment/Plan Acute abdomen with severe sepsis s/p ex lap - dx pyloric perforation with placement of les patch -Called Dr. Alegre to discuss need for surgery -Continue vanco, Zosyn, Flagyl -Blanco cultures pending -Protonix -Stat CT scan ordered Acute on chronic respiratory failure -I was going to wake patient up for extubation however pt has become hypotensive -Continue ventilator care -Pain control/sedation Septic shock -Repeat liter bolus -Add Levophed and Vasopressin -Check CVP monitoring -Add solucortef Squamous cell lung cancer dx 08/26 -Has not seen oncology yet Acute renal failure -IVF Metabolic lactic acidosis -Give 2 amps of bicarb Anemia- monitor Hx of COPD -SVNS 60min ICU time spent with patient and medical team secondary to pt patient unstable condition SHIRA LOPEZ DO Sep 07, 2018 14:46
--- NOTE | 2018-09-07 14:57 | NUR ---
Pastoral care visit, located and son in quiet room, they shared pts health story and his and their concerns, offered listening, support and prayer.
[2018-09-07] MEDS: DEXMEDETOMIDINE INJECTION 200 MCG in NS (IVPB) 50 ML IV SCH ×2 (15:00→21:37)
[2018-09-07] MEDS: NS IV 1000 ML 1,000 ML IV SCH ×4 (15:02→22:54)
[2018-09-07] MEDS ORDERED: FLU QUADRIvalent (5+ YOA) 2018-2019 (AFLURIA) 0.5 ML IM ONE (15:15)
[2018-09-07] MEDS: fentaNYL INJECTION 100 MCG/2 ML AMP IVP NR ×2 (16:09→18:20)
[2018-09-07] MEDS: RT-ALBUTEROL/IPRATROPIUM 3 ML (DUONEB) VIAL INH PRN (16:10)
[2018-09-07] MEDS: metroNIDAZOLE 500MG/100ML IVPB 100 ML IV SCH (16:19)
[2018-09-07] MEDS: PIPERACILLIN SODIUM/TAZOBACTAM 4.5 GM in NS (IVPB) 100 ML IV SCH ×2 (16:24→21:45)
--- NOTE | 2018-09-07 21:00 | NUR ---
DR BIRD CALLED TO CHECK ON PT, ORDERS RECEIVED. NS BOLUS (#5)
[2018-09-07] MEDS: fentaNYL INJECTION 100 MCG/2 ML AMP IV PRN (22:21)
[2018-09-08] VITALS (32 sets, daily range): BP systolic 100–145; BP diastolic 44–88
[2018-09-08] MEDS: PROPOFOL DRIP (ICU) 100 ML IV SCH ×3 (00:04→19:26)
[2018-09-08] MEDS: metroNIDAZOLE 500MG/100ML IVPB 100 ML IV SCH ×3 (00:06→16:51)
[2018-09-08] MEDS: DEXMEDETOMIDINE INJECTION 200 MCG in NS (IVPB) 50 ML IV SCH ×6 (01:20→23:17)
[2018-09-08] MEDS: NOREPINEPHRINE 4 MG in NS (IVPB) 250 ML IV SCH ×4 (01:42→23:15)
[2018-09-08] MEDS: RT-ALBUTEROL/IPRATROPIUM 3 ML (DUONEB) VIAL INH SCH ×6 (02:11→21:02)
[2018-09-08 03:49] LABS: ABG BASE EXCESS -9.1 MMOL/L (-2.5-2.5); ABG OXYGEN SATURATION 93 % (94-100); ABG PCO2 43 MMHG (35-45); ABG PO2 77 MMHG (79-93); ABG TCO2 18.2 MMOL/L (21.0-31.0)
[2018-09-08 03:50] LABS: ABG PH 7.22 (7.37-7.43)
[2018-09-08 03:51] LABS: ALLENS TEST ART LINE; BASOPHILS # (AUTO) 0.1 10^3/uL (0.0-0.1); BASOPHILS % (AUTO) 0 % (0-10); EOSINOPHILS # (AUTO) 0.2 10^3/uL (0.0-0.3); EOSINOPHILS % (AUTO) 0 % (0-10); HEMATOCRIT 25 % (40-54); HEMOGLOBIN 8.2 G/DL (13.3-17.7); INSPIRED O2 40%; LYMPHOCYTES # (AUTO) 0.7 X 10^3 (1.0-4.0); LYMPHOCYTES % (AUTO) 1 % (12-44); MEAN CORPUSCULAR HEMOGLOBIN 30 PG (25-34); MEAN CORPUSCULAR HGB CONC 33 G/DL (32-36); MEAN CORPUSCULAR VOLUME 92 FL (80-99); MEAN PLATELET VOLUME 10.3 FL (7.4-10.4); MONOCYTES # (AUTO) 0.8 X 10^3 (0.0-1.0); MONOCYTES % (AUTO) 1 % (0-12); NEUTROPHILS # (AUTO) 76.9 X 10^3 (1.8-7.8); NEUTROPHILS % (AUTO) 98 % (42-75); PATIENT TEMP 100.4; PLATELET COUNT 298 10^3/uL (130-400); RED CELL DISTRIBUTION WIDTH 15.3 % (10.0-14.5); VENTILATOR YES
[2018-09-08 03:52] LABS: WHITE BLOOD COUNT 78.8 10^3/uL (4.3-11.0)
[2018-09-08] MEDS ORDERED: VASOPRESSIN INJECTION 20 UNIT in NS (IVPB) 100 ML IV SCH (04:00)
[2018-09-08 04:13] LABS: CALCIUM 7.7 MG/DL (8.5-10.1); CREATININE SERUM 2.4 MG/DL (0.60-1.30); MAGNESIUM 1.4 MG/DL (1.8-2.4); PHOSPHORUS 4.2 MG/DL (2.3-4.7); POTASSIUM 4.7 MMOL/L (3.6-5.0)
[2018-09-08 04:35] LABS: BAND NEUTROPHILS 44 %; LYMPHOCYTES % (MANUAL) 1 %; MONOCYTES % (MANUAL) 1 %; NEUTROPHILS % (MANUAL) 54 %; RBC MORPH NORMAL; TOXIC GRANULATION/VACUOLAZATIO 2+
[2018-09-08] MEDS: MAGNESIUM 1 GM/100 ML IVPB 100 ML IV SCH ×3 (05:11→05:16)
[2018-09-08] MEDS: PIPERACILLIN SODIUM/TAZOBACTAM 4.5 GM in NS (IVPB) 100 ML IV SCH ×3 (05:12→23:36)
[2018-09-08] MEDS: POTASSIUM CL 10MEQ/50ML IVPB 50 ML IV SCH (05:16)
[2018-09-08] MEDS: KCL 20 MEQ TAB (K-DUR) PO SCH (05:17)
[2018-09-08] MEDS ORDERED: SODIUM BICARB 8.4% 50 MEQ/50 ML (ABBOTT) SYR ONE (05:21)
[2018-09-08] MEDS: NS IV 1000 ML 1,000 ML IV SCH ×5 (05:38→23:14)
--- NOTE | 2018-09-08 06:00 | NUR ---
DR LOPEZ HERE, ANOTHER NS BOLUS STARTED (#6) AND 2 AMPS OF SODIUM BICARB GIVEN
--- NOTE | 2018-09-08 06:48 | Pulmonary Progress Note ---
Subjective Time Seen by a Provider: 06:52 Subjective/Events-last exam PT sedated on vent Sepsis Event Evaluation Height, Weight, BMI Height: 5'9.00" Weight: 171lbs. 0.0oz. 77.709766xl; 25.3 BMI Method:Stated Focused Exam Lactate Level 09/07/18 12:55: Lactic Acid Level 2.92*H 09/07/18 21:15: Lactic Acid Level 1.79 09/08/18 03:35: Lactic Acid Level 1.47 Time of Focused Exam: 07:35 Lactic Acid Level Laboratory Tests Test 09/08/18 03:35 Lactic Acid Level 1.47 MMOL/L (0.50-2.00) Exam Exam Vital Signs Date Time Temp Pulse Resp B/P (MAP) Pulse Ox O2 Delivery O2 Flow Rate FiO2 09/08/18 06:00 64 21 120/62 (81) 94 Mechanical Ventilator 40.00 09/08/18 05:57 64 22 94 40 09/08/18 05:00 70 24 120/61 (80) 96 Mechanical Ventilator 40.00 09/08/18 04:30 73 23 96 40 09/08/18 04:00 94 Mechanical Ventilator 40.00 09/08/18 04:00 100.4 09/08/18 04:00 74 21 125/56 (79) 95 Mechanical Ventilator 40.00 09/08/18 03:00 75 23 129/53 (78) 95 Mechanical Ventilator 40.00 09/08/18 02:12 73 22 94 40 09/08/18 02:00 70 23 141/55 (83) 95 Mechanical Ventilator 40.00 09/08/18 01:00 75 09/08/18 01:00 75 24 134/53 (80) 94 Mechanical Ventilator 40.00 09/08/18 00:40 98 22 93 40 09/08/18 00:00 98.0 09/08/18 00:00 94 Mechanical Ventilator 40.00 09/08/18 00:00 85 22 115/57 (76) 95 Mechanical Ventilator 40.00 09/07/18 23:00 85 21 141/54 (83) 94 Mechanical Ventilator 40.00 09/07/18 22:00 77 21 140/60 (86) 93 Mechanical Ventilator 40.00 09/07/18 21:49 76 22 94 40 09/07/18 21:00 75 22 119/53 (75) 95 Mechanical Ventilator 40.00 09/07/18 20:19 81 22 96 40 09/07/18 20:00 98.8 09/07/18 20:00 79 22 130/116 (121) 95 Mechanical Ventilator 40.00 09/07/18 20:00 94 Mechanical Ventilator 40.00 09/07/18 19:00 80 09/07/18 19:00 80 22 101/54 (70) 95 Mechanical Ventilator 40.00 09/07/18 18:09 87 27 92 40 09/07/18 18:00 79 22 102/51 (68) 95 Mechanical Ventilator 40.00 09/07/18 17:00 78 24 101/51 (68) 92 Mechanical Ventilator 40.00 09/07/18 16:41 97.9 85 22 102/68 92 Mechanical Ventilator 50.00 50.00 09/07/18 16:35 92 Mechanical Ventilator 50.00 09/07/18 16:03 85 22 100 100 09/07/18 16:00 85 21 94/50 (65) 95 Mechanical Ventilator 40.00 09/07/18 16:00 97.6 09/07/18 15:00 97.9 09/07/18 15:00 87 22 101/50 (67) 95 Mechanical Ventilator 50.00 09/07/18 14:14 85 23 100 100 09/07/18 14:00 85 15 72/37 (49) 97 Mechanical Ventilator 60.00 09/07/18 13:38 Mechanical Ventilator 09/07/18 13:14 97.9 88 09/07/18 13:00 94 09/07/18 13:00 97 15 111/47 (68) Mechanical Ventilator 60.00 09/07/18 12:34 106 09/07/18 12:15 99.2 09/07/18 12:00 102 15 95/59 (71) Mechanical Ventilator 40.00 09/07/18 11:14 96 16 100 100 09/07/18 08:48 67 18 85/50 (62) 97 Nasal Cannula 2.00 I & O 09/08/18 07:00 Intake Total 7754 ml Output Total 1395 ml Balance 6359 ml Height & Weight Height: 5'9.00" Weight: 171lbs. 0.0oz. 77.795212vb; 25.3 BMI Method:Stated General Appearance: WD/WN, Moderate Distress, Other (sedated on vent) HEENT: PERRL/EOMI, Normal ENT Inspection, Other (mucous membranes dry) Neck: Normal Inspection Respiratory: No Respiratory Distress, Wheezing (slight) Cardiovascular: Regular Rate, Rhythm, No Edema, No Murmur Capillary Refill: Less Than 3 Seconds Peripheral Pulses: 2+ Radial Pulses (R) Extremity: Normal Capillary Refill, Normal Inspection, Non Tender, No Pedal Edema Neurologic/Psychiatric: Alert, Oriented x3, No Motor/Sensory Deficits, Normal Mood/Affect, silk presser II-XII Norm as Tested Skin: Normal Color, Warm/Dry Lymphatic: No Adenopathy Results Lab Laboratory Tests 09/07/18 05:45 09/07/18 12:26 09/08/18 03:35 Assessment/Plan Assessment/Plan Acute abdomen with severe sepsis s/p ex lap - dx pyloric perforation with placement of les patch -Continue vanco, Zosyn, Flagyl -Blanco cultures pending -Protonix -Stat CT scan ordered Acute on chronic respiratory failure -Continue ventilator care -pt is not ready for weaning yet -Pain control/sedation Septic shock -Repeat liter bolus - Levophed and Vasopressin -Check CVP monitoring -solucortef Squamous cell lung cancer dx 08/26 via bronch EBUS -Has not seen oncology yet Acute renal failure -IVF- Change to bicarb gtt Metabolic lactic acidosis -repeat 2 amps of bicarb Anemia- monitor Hx of COPD -SHIRA BISWAS DO Sep 08, 2018 06:48
--- NOTE | 2018-09-08 08:12 | Diagnostic Imaging Report ---
INDICATION: Bowel perforation. Comparison made with prior examination 09/07/2018. FINDINGS: There is cardiomegaly. There is venous congestion. There is right upper lobe consolidation. There is no pneumothorax. The lines and tubes are in satisfactory position. IMPRESSION: Persistent right upper lobe consolidation. Cardiomegaly and some central pulmonary venous congestion. Dictated by: Dictated on workstation # [id number]
[2018-09-08] MEDS: SODIUM BICARBONATE 8.4% VIAL 100 MEQ in 1/2 NS IV SOLUTION 1,000 ML IV SCH ×2 (10:30→17:24)
[2018-09-08] MEDS: FLUCONAZOLE 200 MG/100 ML 100 ML IV SCH (10:37)
[2018-09-08] MEDS ORDERED: HYDR-3812 PO (10:53)
--- NOTE | 2018-09-08 10:55 | NUR ---
UNABLE TO SPEAK WITH THE PATIENT AT THIS TIME. HE WAS RECENTLY DISCHARGED ON 2 ANTIBIOTICS. I CALLED [facility] AND VERIFIED THEY WERE PICKED UP HOWEVER THEY SHOULD BE COMPLETED AT THIS TIME SO I REMOVED THEM FROM THE MED REC. HE DID FILL THE HYDROCODONE SCRIPT ON 08-27-18 FOR 30 TABS. HE GETS HIS MEDS FROM THE [facility] AT [facility], I CALLED [facility] TODAY FOR AN UPDATE ON HIS MED LIST. THEY REPORT HE HAS NOT BEEN SEEN SINCE 08-18-18 WHICH WAS THE DAY BEFORE HIS ADMISSION LAST TIME. HE HAS NOT BEEN SEEN SINCE. NURSE STATES HIS NAPROXEN WAS NOTED TO HAVE BEEN REFILLED ON THAT VISIT 500MG BID. I LEFT THE MEDS THEY WERE REPORTED UPON ADMISSION LAST TIME WITH THE EXCEPTION OF THE LISINOPRIL HCTZ 20-12.5MG DAILY, THIS WAS STOPPED AT HIS DISCHARGE LAST VISIT, I DID NOT PUT IT BACK ON THE MED REC AT THIS TIME.
--- NOTE | 2018-09-08 11:02 | Progress Note-Hospitalist ---
Subjective HPI/CC On Admission Date Seen by Provider: Sep 08, 2018 Time Seen by Provider: 10:30 CC: Abdominal pain HPI: This is a 62 yo M w/ a hx of squamous cell carcinoma of the lung diagnosed within the last month who presented to the ER on Thursday morning with severe abdominal pain and dyspnea. Pt states he saw his PCP Thursday for what felt to him like increased GERD symptoms and associated back pain. On Thursday evening while eating dinner he felt "something pop" in his stomach and the pain worsened immensely. On arrival to the ED he was noted to be hypotensive and likely peritoneal with signs of an acute abdomen. CT/AP showed perforation and he was taken to OR for emergent surgery by Dr. lAegre. He was found to have a perforation of his pylorus which was repaired with James patch. Notably, the pt was still hypotensive after 3 L boluses of fluid on way to OR, indicating septic shock. Pt is DNR but desired surgery so was intubated at that time. Subjective/Events-last exam Remains intubated Leukocytosis noted 78k Creat 2.4 Pressor therapy maintained No pain is reported Focused Exam Lactate Level 09/07/18 12:55: Lactic Acid Level 2.92*H 09/07/18 21:15: Lactic Acid Level 1.79 09/08/18 03:35: Lactic Acid Level 1.47 Time of Focused Exam: 07:35 Objective Exam Vital Signs Vital Signs Date Time Temp Pulse Resp B/P (MAP) Pulse Ox O2 Delivery O2 Flow Rate FiO2 09/08/18 11:12 21 09/08/18 11:00 70 124/50 (74) 97 Mechanical Ventilator 40.00 09/08/18 09:41 40 09/08/18 08:00 99.2 Capillary Refill : Less Than 3 Seconds General Appearance: No Apparent Distress, WD/WN, Chronically ill, Other ( intubated) Respiratory: Chest Non Tender, No Accessory Muscle Use, No Respiratory Distress , Crackles, Decreased Breath Sounds, Wheezing Neurologic/Psychiatric: Other (intubated) Results/Procedures Lab Laboratory Tests 09/07/18 12:26 09/08/18 03:35 Patient resulted labs reviewed. Imaging: Reviewed Imaging Films, Reviewed Imaging Report Assessment/Plan Assessment and Plan Assess & Plan/Chief Complaint Assessment: Septic shock PREM Perforated pylorus s/p Ex Lap w/ james patch repair Squamous cell carcinoma of lung w/mets Plan: ICU Sepsis protocol IV broad spectrum abx Prognosis guarded (1) Shock, septic (2) Intra-abdominal free air of unknown etiology (3) Perforated abdominal viscus (4) Metastatic squamous cell carcinoma to lung (5) COPD exacerbation (6) Acute renal failure (7) Hypercalcemia (8) Hyponatremia (9) Atrial fibrillation (10) Alcoholism Critical Care Critical Care: Critically Ill Patient Clinical Quality Measures DVT/VTE Risk/Contraindication: Risk Factor Score Per Nursin RFS Level Per Nursing on Admit: 4+=Very High CATARINA GILLESPIE DO Sep 08, 2018 11:02
--- NOTE | 2018-09-08 11:16 | Anesthesia-General Post-Op ---
General Patient Condition Mental Status/LOC: Unreactive (sedate) Cardiovascular: Unsatisfactory (on levophed and vasopressin) Nausea/Vomiting: Absent Respiratory: Unsatisfactory (vent dependant, not hemodynamically stable for weaning trial at this time) Pain: Controlled Complications: Absent Post Op Complications Complications None Follow Up Care/Instructions Patient Instructions None needed. Anesthesia/Patient Condition Patient Condition No apparent adverse anesthesia problems. No complications reported per nursing. JUNIE BATRES CRNA Sep 08, 2018 11:16
[2018-09-08] MEDS ORDERED: TROUGH ORDER-PHARMACY XX ONE (12:00)
--- NOTE | 2018-09-08 12:00 | NUR ---
DR. GILLESPIE AT PT BEDSIDE, THIS NURSE ASSESSED PT DISTENTION ET NOTIFIED DR. GILLESPIE. NO NEW ORDERS RECEIVED
[2018-09-08] MEDS: PANTOPRAZOLE INJECTION 200 MG in NS (IVPB) 100 ML IV SCH ×2 (12:22→16:40)
[2018-09-08] MEDS ORDERED: VANCOMYCIN 1250 MG/NS 250 ML IVPB IV SCH ×2 (13:00)
--- NOTE | 2018-09-08 13:05 | NUR ---
[employer] referral by Dr. Castillo for support of pt's , Neisha and son who were present. Pt has 3 sons, two of which visit the hospital. Pt made eye contact and attempted to talk. Speech was indiscernible, so pensions retirement plan specialist acknowledged the struggle he was experiencing and encouraged his rest by noting that staff were monitoring his vitals and would respond to his needs as detected or indicated non-verbally. Pt nodded and closed is eyes. Neisha said she does not think her youngest son will visit because he finds hospitals overwhelming and painful. Offered active listening and compassionate presence. Neisha said they were visited by Baseball Winder Steve, whom they described as kind and supportive.
--- NOTE | 2018-09-08 13:13 | Progress Note ---
Subjective Date Seen by a Provider: Sep 08, 2018 Time Seen by a Provider: 08:07 Subjective/Events-last exam Patient sedated on vent. WBC 78k. Lactic acid down. Still on Levo/ vasopressin. Increasing urine output. Drain serous. No family at bedside. Focused Exam Lactate Level 09/07/18 12:55: Lactic Acid Level 2.92*H 09/07/18 21:15: Lactic Acid Level 1.79 09/08/18 03:35: Lactic Acid Level 1.47 Time of Focused Exam: 07:35 Objective Exam Vital Signs Date Time Temp Pulse Resp B/P (MAP) Pulse Ox O2 Delivery O2 Flow Rate FiO2 09/08/18 12:36 98 22 95 40 09/08/18 12:00 94 Mechanical Ventilator 40.00 09/08/18 11:12 21 09/08/18 11:00 70 21 124/50 (74) 97 Mechanical Ventilator 40.00 09/08/18 10:42 131/80 09/08/18 10:00 73 21 129/51 (77) 97 Mechanical Ventilator 40.00 09/08/18 09:41 74 22 96 40 09/08/18 09:00 75 22 132/51 (78) 97 Mechanical Ventilator 40.00 09/08/18 08:54 99 22 96 40 09/08/18 08:00 99.2 09/08/18 08:00 94 Mechanical Ventilator 40.00 09/08/18 08:00 78 23 134/52 (79) 95 Mechanical Ventilator 40.00 09/08/18 07:00 89 21 145/57 (86) 96 Mechanical Ventilator 40.00 09/08/18 07:00 87 09/08/18 06:00 64 21 120/62 (81) 94 Mechanical Ventilator 40.00 09/08/18 05:57 64 22 94 40 09/08/18 05:00 70 24 120/61 (80) 96 Mechanical Ventilator 40.00 09/08/18 04:30 73 23 96 40 09/08/18 04:00 94 Mechanical Ventilator 40.00 09/08/18 04:00 100.4 09/08/18 04:00 74 21 125/56 (79) 95 Mechanical Ventilator 40.00 09/08/18 03:00 75 23 129/53 (78) 95 Mechanical Ventilator 40.00 09/08/18 02:12 73 22 94 40 09/08/18 02:00 70 23 141/55 (83) 95 Mechanical Ventilator 40.00 09/08/18 01:00 75 09/08/18 01:00 75 24 134/53 (80) 94 Mechanical Ventilator 40.00 09/08/18 00:40 98 22 93 40 09/08/18 00:00 98.0 09/08/18 00:00 94 Mechanical Ventilator 40.00 09/08/18 00:00 85 22 115/57 (76) 95 Mechanical Ventilator 40.00 09/07/18 23:00 85 21 141/54 (83) 94 Mechanical Ventilator 40.00 09/07/18 22:00 77 21 140/60 (86) 93 Mechanical Ventilator 40.00 09/07/18 21:49 76 22 94 40 09/07/18 21:00 75 22 119/53 (75) 95 Mechanical Ventilator 40.00 09/07/18 20:19 81 22 96 40 09/07/18 20:00 98.8 09/07/18 20:00 79 22 130/116 (121) 95 Mechanical Ventilator 40.00 09/07/18 20:00 94 Mechanical Ventilator 40.00 09/07/18 19:00 80 09/07/18 19:00 80 22 101/54 (70) 95 Mechanical Ventilator 40.00 09/07/18 18:09 87 27 92 40 09/07/18 18:00 79 22 102/51 (68) 95 Mechanical Ventilator 40.00 09/07/18 17:00 78 24 101/51 (68) 92 Mechanical Ventilator 40.00 09/07/18 16:41 97.9 85 22 102/68 92 Mechanical Ventilator 50.00 50.00 09/07/18 16:35 92 Mechanical Ventilator 50.00 09/07/18 16:03 85 22 100 100 09/07/18 16:00 85 21 94/50 (65) 95 Mechanical Ventilator 40.00 09/07/18 16:00 97.6 09/07/18 15:00 97.9 09/07/18 15:00 87 22 101/50 (67) 95 Mechanical Ventilator 50.00 09/07/18 14:14 85 23 100 100 09/07/18 14:00 85 15 72/37 (49) 97 Mechanical Ventilator 60.00 09/07/18 13:38 Mechanical Ventilator 09/07/18 13:14 97.9 88 I & O 09/08/18 07:00 Intake Total 7754 ml Output Total 1395 ml Balance 6359 ml Capillary Refill : Less Than 3 Seconds General Appearance: No Apparent Distress, WD/WN, Chronically ill, Other ( intubated) HEENT: PERRL/EOMI, Normal ENT Inspection, Other (mucous membranes dry) Neck: Normal Inspection Respiratory: Chest Non Tender, No Accessory Muscle Use, No Respiratory Distress , Crackles, Decreased Breath Sounds Cardiovascular: Regular Rate, Rhythm, No Edema Peripheral Pulses: 2+ Radial Pulses (R) Gastrointestinal: soft, tenderness (incisional) Extremity: Normal Capillary Refill, Normal Inspection, Non Tender, No Pedal Edema Neurologic/Psychiatric: Other (intubated/sedated) Skin: Normal Color, Warm/Dry Lymphatic: No Adenopathy Results Lab Laboratory Tests 09/07/18 21:15: Lactic Acid Level 1.79 09/08/18 03:35: Lactic Acid Level 1.47, White Blood Count 78.8*H, Red Blood Count 2.74L, Hemoglobin 8.2L, Hematocrit 25L, Mean Corpuscular Volume 92, Mean Corpuscular Hemoglobin 30, Mean Corpuscular Hemoglobin Concent 33, Red Cell Distribution Width 15.3H, Platelet Count 298, Mean Platelet Volume 10.3, Neutrophils (%) ( Auto) 98H, Lymphocytes (%) (Auto) 1L, Monocytes (%) (Auto) 1, Eosinophils (%) ( Auto) 0, Basophils (%) (Auto) 0, Neutrophils # (Auto) 76.9H, Lymphocytes # (Auto ) 0.7L, Monocytes # (Auto) 0.8, Eosinophils # (Auto) 0.2, Basophils # (Auto) 0.1 , Neutrophils % (Manual) 54, Lymphocytes % (Manual) 1, Monocytes % (Manual) 1, Band Neutrophils 44, Toxic Granulation 2+, Blood Morphology Comment NORMAL, Blood Gas Puncture Site ART LINE, Blood Gas Patient Temperature 100.4, Arterial Blood pH 7.22*L, Arterial Blood Partial Pressure CO2 43, Arterial Blood Partial Pressure O2 77L, Arterial Blood HCO3 17*L, Arterial Blood Total CO2 18.2L, Arterial Blood Oxygen Saturation 93L, Arterial Blood Base Excess -9.1L, Isaias Test ART LINE, Blood Gas Ventilator Setting YES, Blood Gas Inspired Oxygen 40%, Sodium Level 141, Potassium Level 4.7, Chloride Level 115H, Carbon Dioxide Level 15L, Anion Gap 11, Blood Urea Nitrogen 31H, Creatinine 2.40H, Estimat Glomerular Filtration Rate 27, BUN/Creatinine Ratio 13, Glucose Level 267H, Calcium Level 7.7L, Phosphorus Level 4.2, Magnesium Level 1.4L 09/08/18 11:55: Vancomycin Level Trough 23.1H Microbiology 09/07/18 Gram Stain - Final, Resulted 09/07/18 Anaerobic Culture, Resulted Pending 09/07/18 Surgical Culture, Resulted Pending 09/07/18 Gram Stain - Final, Resulted 09/07/18 Sputum Culture, Resulted Pending Assessment/Plan Assessment/Plan Assessment/Plan hollow viscus perforation septic shock acute renal failure metastatic lung cancer respiratory failure s/p ex lap les patch for pyloric perforation zosyn, vancomycin, flagyl, diflucan receiving IV fluid and bolus protonix drip Levo/vasopressin wean as tolerates as blood pressure permits. NPO irene for accurate i/o scd for dvt prophylaxis Diagnosis/Problems Diagnosis/Problems (1) Shock, septic Status: Acute (2) Intra-abdominal free air of unknown etiology Status: Acute (3) Perforated abdominal viscus Status: Acute (4) Metastatic squamous cell carcinoma to lung Status: Acute Qualifiers: Qualified Codes: C78.01 - Secondary malignant neoplasm of right lung (5) COPD exacerbation Status: Acute (6) Acute renal failure Status: Acute Qualifiers: Qualified Codes: N17.9 - Acute kidney failure, unspecified (7) Hypercalcemia Status: Acute (8) Hyponatremia Status: Acute (9) Atrial fibrillation Status: Chronic (10) Alcoholism Status: Chronic Clinical Quality Measures DVT/VTE Risk/Contraindication: Risk Factor Score Per Nursin RFS Level Per Nursing on Admit: 4+=Very High ALYX BIRD DO Sep 08, 2018 13:13
--- NOTE | 2018-09-08 14:19 | NUR ---
PTD VANCOMYCIN LABS: SCR 2.4 (UP FROM 2.1) PLAN: HOLD VANCOMYCIN TODAY AND RECHECK A RANDOM LEVEL IN AM AND CALCULATE T1/2 AND Kd AND ADJUST BASED ON KINETIC PARAMETERS. 09/07/18 PATIENT RECEIVED VANCOMYCIN 1 GRAM IN ED AT 0800, THEN 1,500MG AT 1300 . THEN 24 HOUR LEVEL WAS 23.1.
[2018-09-08] MEDS: fentaNYL INJECTION 100 MCG/2 ML AMP IV PRN (15:39)
--- NOTE | 2018-09-08 17:00 | NUR ---
DR. LOPEZ AT BEDSIDE WITH PT. DISCUSSING PT CARE. IT WAS DECIDED AT THIS TIME THAT PATIENT WOULD BE CHANGED TO DNR/ NO COMPRESSIONS/ NO SHOCKING FROM AED, PER FAMILY. PT TO CONTINUE WITH CURRENT DRIPS ET VENT CARE. DR. LOPEZ WILL REASSESS PT IN AM.
[2018-09-08] MEDS ORDERED: fentaNYL INJECTION 1,250 MCG in NS (IVPB) 250 ML IV SCH (17:15)
--- NOTE | 2018-09-08 21:45 | NUR ---
This RN called EICU to inform them L-Radial Arterial Line discontinued, no longer working. No orders received at this time.
[2018-09-09] VITALS (28 sets, daily range): BP systolic 102–139; BP diastolic 64–104
[2018-09-09] MEDS: PROPOFOL DRIP (ICU) 100 ML IV SCH ×2 (00:40→07:31)
[2018-09-09] MEDS: SODIUM BICARBONATE 8.4% VIAL 100 MEQ in 1/2 NS IV SOLUTION 1,000 ML IV SCH ×2 (00:51→08:46)
[2018-09-09] MEDS: RT-ALBUTEROL/IPRATROPIUM 3 ML (DUONEB) VIAL INH SCH ×6 (03:36→21:09)
[2018-09-09] MEDS: NS IV 1000 ML 1,000 ML IV SCH ×4 (03:51→14:29)
[2018-09-09] MEDS: DEXMEDETOMIDINE INJECTION 200 MCG in NS (IVPB) 50 ML IV SCH ×3 (03:52→06:22)
[2018-09-09 03:56] LABS: ABG BASE EXCESS -4.1 MMOL/L (-2.5-2.5); ABG OXYGEN SATURATION 84 % (94-100); ABG PCO2 43 MMHG (35-45); ABG PO2 49 MMHG (79-93); ABG TCO2 22.6 MMOL/L (21.0-31.0)
[2018-09-09 04:00] LABS: ALLENS TEST POSITIVE; INSPIRED O2 40% FIO2; PATIENT TEMP 97.7; VENTILATOR YES
[2018-09-09 04:01] LABS: ABG PH 7.31 (7.37-7.43)
[2018-09-09 04:35] LABS: CALCIUM 7.5 MG/DL (8.5-10.1); CREATININE SERUM 2.94 MG/DL (0.60-1.30); MAGNESIUM 1.9 MG/DL (1.8-2.4); PHOSPHORUS 3.7 MG/DL (2.3-4.7); POTASSIUM 3.5 MMOL/L (3.6-5.0)
[2018-09-09 04:40] LABS: BASOPHILS % (AUTO) 0 % (0-10); EOSINOPHILS % (AUTO) 0 % (0-10); HEMATOCRIT 23 % (40-54); HEMOGLOBIN 7.5 G/DL (13.3-17.7); LYMPHOCYTES # (AUTO) 0.6 X 10^3 (1.0-4.0); LYMPHOCYTES % (AUTO) 1 % (12-44); MEAN CORPUSCULAR HEMOGLOBIN 29 PG (25-34); MEAN CORPUSCULAR HGB CONC 33 G/DL (32-36); MEAN CORPUSCULAR VOLUME 90 FL (80-99); MEAN PLATELET VOLUME 10.4 FL (7.4-10.4); MONOCYTES % (AUTO) 2 % (0-12); NEUTROPHILS # (AUTO) 50.1 X 10^3 (1.8-7.8); NEUTROPHILS % (AUTO) 97 % (42-75); PLATELET COUNT 300 10^3/uL (130-400); RED CELL DISTRIBUTION WIDTH 14.9 % (10.0-14.5)
[2018-09-09 04:59] LABS: WHITE BLOOD COUNT 51.7 10^3/uL (4.3-11.0)
[2018-09-09] MEDS: PIPERACILLIN SODIUM/TAZOBACTAM 4.5 GM in NS (IVPB) 100 ML IV SCH ×3 (05:29→21:32)
[2018-09-09] MEDS: POTASSIUM CL 10MEQ/50ML IVPB 50 ML IV SCH ×3 (05:31→06:30)
[2018-09-09] MEDS: MAGNESIUM 1 GM/100 ML IVPB 100 ML IV SCH (05:38)
[2018-09-09] MEDS: KCL 20 MEQ TAB (K-DUR) PO SCH (05:38)
[2018-09-09] MEDS: inSUlin ASPART (NovoLOG) 1 UNIT/0.01 ML (CHARGE PER UNIT) SQ SCH ×3 (05:50→18:13)
--- NOTE | 2018-09-09 05:56 | Pulmonary Progress Note ---
Subjective Time Seen by a Provider: 06:00 Subjective/Events-last exam Pt sedated on vent. Sepsis Event Evaluation Height, Weight, BMI Height: 5'9.00" Weight: 171lbs. 0.0oz. 77.769622wt; 25.3 BMI Method:Stated Focused Exam Lactate Level 09/07/18 12:55: Lactic Acid Level 2.92*H 09/07/18 21:15: Lactic Acid Level 1.79 09/08/18 03:35: Lactic Acid Level 1.47 Time of Focused Exam: 07:35 Exam Exam Vital Signs Date Time Temp Pulse Resp B/P (MAP) Pulse Ox O2 Delivery O2 Flow Rate FiO2 09/09/18 05:00 60 21 139/78 (98) 96 Mechanical Ventilator 40.00 09/09/18 04:45 96 22 96 40 09/09/18 04:00 55 22 128/72 (90) 96 Mechanical Ventilator 40.00 09/09/18 03:56 97.7 09/09/18 03:37 51 22 96 40 09/09/18 03:00 54 22 124/72 (89) 95 Mechanical Ventilator 40.00 09/09/18 02:00 52 22 131/71 (91) 96 Mechanical Ventilator 40.00 09/09/18 01:00 52 09/09/18 01:00 51 22 119/66 (83) 96 Mechanical Ventilator 40.00 09/09/18 00:40 97.6 54 21 118/67 96 Mechanical Ventilator 40.00 09/09/18 00:00 Mechanical Ventilator 40.00 09/09/18 00:00 97.6 09/09/18 00:00 54 21 118/67 (84) 96 Mechanical Ventilator 40.00 09/08/18 23:00 58 22 116/66 (83) 96 Mechanical Ventilator 40.00 09/08/18 22:00 54 21 112/63 (79) 96 Mechanical Ventilator 40.00 09/08/18 21:03 56 22 95 40 09/08/18 21:00 55 21 118/48 (71) 95 Mechanical Ventilator 40.00 09/08/18 20:00 57 21 100/52 (68) 95 Mechanical Ventilator 40.00 09/08/18 20:00 Mechanical Ventilator 40.00 09/08/18 19:26 98.9 65 21 126/49 95 Mechanical Ventilator 40.00 09/08/18 19:00 62 09/08/18 19:00 97.0 09/08/18 19:00 60 20 126/64 (84) 96 Mechanical Ventilator 40.00 09/08/18 18:00 65 21 126/49 (74) 95 Mechanical Ventilator 40.00 09/08/18 17:48 63 22 96 40 09/08/18 17:33 98.9 09/08/18 17:24 125/49 09/08/18 17:00 75 21 124/49 (74) 96 Mechanical Ventilator 40.00 09/08/18 16:00 94 Mechanical Ventilator 40.00 09/08/18 16:00 88 21 128/46 (73) 96 Mechanical Ventilator 40.00 09/08/18 15:00 77 21 129/45 (73) 95 Mechanical Ventilator 40.00 09/08/18 14:00 75 22 119/46 (70) 95 Mechanical Ventilator 40.00 09/08/18 13:51 76 24 97 40 09/08/18 13:00 75 09/08/18 13:00 75 22 123/46 (71) 96 Mechanical Ventilator 40.00 09/08/18 12:36 98 22 95 40 09/08/18 12:00 94 Mechanical Ventilator 40.00 09/08/18 12:00 77 23 121/44 (69) 97 Mechanical Ventilator 40.00 09/08/18 11:12 21 09/08/18 11:00 70 21 124/50 (74) 97 Mechanical Ventilator 40.00 09/08/18 10:42 131/80 09/08/18 10:00 73 21 129/51 (77) 97 Mechanical Ventilator 40.00 09/08/18 09:41 74 22 96 40 09/08/18 09:00 75 22 132/51 (78) 97 Mechanical Ventilator 40.00 09/08/18 08:54 99 22 96 40 09/08/18 08:00 99.2 09/08/18 08:00 94 Mechanical Ventilator 40.00 09/08/18 08:00 78 23 134/52 (79) 95 Mechanical Ventilator 40.00 09/08/18 07:00 89 21 145/57 (86) 96 Mechanical Ventilator 40.00 09/08/18 07:00 87 09/08/18 06:00 64 21 120/62 (81) 94 Mechanical Ventilator 40.00 09/08/18 05:57 64 22 94 40 I & O 09/09/18 07:00 Intake Total 4362 ml Output Total 1235 ml Balance 3127 ml Height & Weight Height: 5'9.00" Weight: 171lbs. 0.0oz. 77.461727wm; 25.3 BMI Method:Stated General Appearance: No Apparent Distress, WD/WN, Chronically ill, Other ( intubated) HEENT: PERRL/EOMI, Normal ENT Inspection, Other (mucous membranes dry) Neck: Normal Inspection Respiratory: Chest Non Tender, No Accessory Muscle Use, No Respiratory Distress , Crackles, Decreased Breath Sounds Cardiovascular: Regular Rate, Rhythm, No Edema Capillary Refill: Less Than 3 Seconds Peripheral Pulses: 2+ Radial Pulses (R) Gastrointestinal: soft, tenderness (incisional) Extremity: Normal Capillary Refill, Normal Inspection, Non Tender, No Pedal Edema Neurologic/Psychiatric: Other (intubated/sedated) Skin: Normal Color, Warm/Dry Lymphatic: No Adenopathy Results Lab Laboratory Tests 09/07/18 12:26 09/08/18 03:35 09/09/18 03:45 09/09/18 03:55 Assessment/Plan Assessment/Plan Acute abdomen with severe sepsis s/p ex lap - dx pyloric perforation with placement of les patch -Continue vanco, Zosyn, Flagyl -Blanco cultures pending -Protonix -Stat CT scan ordered Acute on chronic respiratory failure -Continue ventilator care -pt is not ready for weaning yet -EICU increased Vt to 570 -Repeat ABG is pending -Pain control/sedation Septic shock -Repeat liter bolus- Levophed - continue to titrate to D/c. Vasopressin is now off -Check CVP monitoring -solucortef Squamous cell lung cancer dx 08/26 via bronch EBUS -Has not seen oncology yet Acute renal failure -IVF- Change to bicarb gtt Metabolic lactic acidosis -repeat 2 amps of bicarb Anemia- monitor Hx of COPD -SVNS Diagnosis/Problems Diagnosis/Problems (1) Shock, septic Status: Acute (2) Intra-abdominal free air of unknown etiology Status: Acute (3) Perforated abdominal viscus Status: Acute (4) Metastatic squamous cell carcinoma to lung Status: Acute Qualifiers: Qualified Codes: C78.01 - Secondary malignant neoplasm of right lung (5) COPD exacerbation Status: Acute (6) Acute renal failure Status: Acute Qualifiers: Qualified Codes: N17.9 - Acute kidney failure, unspecified (7) Hypercalcemia Status: Acute (8) Hyponatremia Status: Acute (9) Atrial fibrillation Status: Chronic (10) Alcoholism Status: Chronic SHIRA LOPEZ DO Sep 09, 2018 05:56
[2018-09-09 06:45] LABS: ABG OXYGEN SATURATION 96 % (94-100); ABG PCO2 37 MMHG (35-45); ABG PH 7.38 (7.37-7.43); ABG PO2 74 MMHG (79-93); ABG TCO2 22.4 MMOL/L (21.0-31.0)
[2018-09-09 06:48] LABS: ALLENS TEST POSITIVE; INSPIRED O2 40% FIO2; PATIENT TEMP 98.9; VENTILATOR YES
--- NOTE | 2018-09-09 08:11 | Diagnostic Imaging Report ---
EXAM: CHEST 1 VIEW, AP/PA ONLY INDICATION: Ventilator patient. COMPARISON: Chest radiograph 09/08/2017. FINDINGS: Cardiomegaly. Persistent airspace consolidation in the right upper lobe and right pleural effusion. Increasing consolidation in the lung bases. Tiny left pleural effusion. No pneumothorax. Chronic left rib fractures. ETT tip midway between the level of the clavicles and margie. NG tube tip and side-port overlying the stomach. IMPRESSION: 1. Persistent dense consolidation in the right upper lobe and right pleural effusion. 2. Increasing consolidation in the lung bases. 3. Stable cardiomegaly. 4. Support lines in the expected positions. Dictated by: Dictated on workstation # [id number]
--- NOTE | 2018-09-09 08:16 | Progress Note ---
Subjective Date Seen by a Provider: Sep 09, 2018 Time Seen by a Provider: 08:13 Subjective/Events-last exam on vent and sedated. on 4mcg of Levo. urine output approximately 30 ml/hr NPO. SRAVAN drain slightly murky and serous. at bedside. Focused Exam Lactate Level 09/07/18 12:55: Lactic Acid Level 2.92*H 09/07/18 21:15: Lactic Acid Level 1.79 09/08/18 03:35: Lactic Acid Level 1.47 Time of Focused Exam: 07:35 Objective Exam Vital Signs Date Time Temp Pulse Resp B/P (MAP) Pulse Ox O2 Delivery O2 Flow Rate FiO2 09/09/18 07:31 97.7 59 20 129/79 97 Mechanical Ventilator 40.00 09/09/18 06:08 59 20 97 40 09/09/18 05:00 60 21 139/78 (98) 96 Mechanical Ventilator 40.00 09/09/18 04:45 96 22 96 40 09/09/18 04:00 Mechanical Ventilator 40.00 09/09/18 04:00 55 22 128/72 (90) 96 Mechanical Ventilator 40.00 09/09/18 03:56 97.7 09/09/18 03:37 51 22 96 40 09/09/18 03:00 54 22 124/72 (89) 95 Mechanical Ventilator 40.00 09/09/18 02:00 52 22 131/71 (91) 96 Mechanical Ventilator 40.00 09/09/18 01:00 52 09/09/18 01:00 51 22 119/66 (83) 96 Mechanical Ventilator 40.00 09/09/18 00:40 97.6 54 21 118/67 96 Mechanical Ventilator 40.00 09/09/18 00:00 Mechanical Ventilator 40.00 09/09/18 00:00 97.6 09/09/18 00:00 54 21 118/67 (84) 96 Mechanical Ventilator 40.00 09/08/18 23:00 58 22 116/66 (83) 96 Mechanical Ventilator 40.00 09/08/18 22:00 54 21 112/63 (79) 96 Mechanical Ventilator 40.00 09/08/18 21:03 56 22 95 40 09/08/18 21:00 55 21 118/48 (71) 95 Mechanical Ventilator 40.00 09/08/18 20:00 57 21 100/52 (68) 95 Mechanical Ventilator 40.00 09/08/18 20:00 Mechanical Ventilator 40.00 09/08/18 19:26 98.9 65 21 126/49 95 Mechanical Ventilator 40.00 09/08/18 19:00 62 09/08/18 19:00 97.0 09/08/18 19:00 60 20 126/64 (84) 96 Mechanical Ventilator 40.00 09/08/18 18:00 65 21 126/49 (74) 95 Mechanical Ventilator 40.00 09/08/18 17:48 63 22 96 40 09/08/18 17:33 98.9 09/08/18 17:24 125/49 09/08/18 17:00 75 21 124/49 (74) 96 Mechanical Ventilator 40.00 09/08/18 16:00 94 Mechanical Ventilator 40.00 09/08/18 16:00 88 21 128/46 (73) 96 Mechanical Ventilator 40.00 09/08/18 15:00 77 21 129/45 (73) 95 Mechanical Ventilator 40.00 09/08/18 14:00 75 22 119/46 (70) 95 Mechanical Ventilator 40.00 09/08/18 13:51 76 24 97 40 09/08/18 13:00 75 09/08/18 13:00 75 22 123/46 (71) 96 Mechanical Ventilator 40.00 09/08/18 12:36 98 22 95 40 09/08/18 12:00 94 Mechanical Ventilator 40.00 09/08/18 12:00 77 23 121/44 (69) 97 Mechanical Ventilator 40.00 09/08/18 11:12 21 09/08/18 11:00 70 21 124/50 (74) 97 Mechanical Ventilator 40.00 09/08/18 10:42 131/80 09/08/18 10:00 73 21 129/51 (77) 97 Mechanical Ventilator 40.00 09/08/18 09:41 74 22 96 40 09/08/18 09:00 75 22 132/51 (78) 97 Mechanical Ventilator 40.00 09/08/18 08:54 99 22 96 40 I & O 09/09/18 07:00 Intake Total 4566 ml Output Total 1360 ml Balance 3206 ml Capillary Refill : Less Than 3 Seconds General Appearance: No Apparent Distress, WD/WN, Chronically ill, Other ( intubated) HEENT: PERRL/EOMI, Normal ENT Inspection, Other (mucous membranes dry) Neck: Normal Inspection Respiratory: Chest Non Tender, No Accessory Muscle Use, No Respiratory Distress , Crackles, Decreased Breath Sounds Cardiovascular: Regular Rate, Rhythm, No Edema Peripheral Pulses: 2+ Radial Pulses (R) Gastrointestinal: soft, tenderness (incisional, no signs of infection) Extremity: Normal Capillary Refill, Normal Inspection, Non Tender, No Pedal Edema Neurologic/Psychiatric: Other (intubated/sedated) Skin: Normal Color, Warm/Dry Lymphatic: No Adenopathy Results Lab Laboratory Tests 09/08/18 11:55: Vancomycin Level Trough 23.1H 09/09/18 03:45: White Blood Count 51.7*H, Red Blood Count 2.56L, Hemoglobin 7.5L, Hematocrit 23L , Mean Corpuscular Volume 90, Mean Corpuscular Hemoglobin 29, Mean Corpuscular Hemoglobin Concent 33, Red Cell Distribution Width 14.9H, Platelet Count 300, Mean Platelet Volume 10.4, Neutrophils (%) (Auto) 97H, Lymphocytes (%) (Auto) 1L , Monocytes (%) (Auto) 2, Eosinophils (%) (Auto) 0, Basophils (%) (Auto) 0, Neutrophils # (Auto) 50.1H, Lymphocytes # (Auto) 0.6L, Monocytes # (Auto) 1.0, Eosinophils # (Auto) 0.0, Basophils # (Auto) 0.0, Blood Gas Puncture Site RIGHT RADIAL, Blood Gas Patient Temperature 97.7, Arterial Blood pH 7.31*L, Arterial Blood Partial Pressure CO2 43, Arterial Blood Partial Pressure O2 49L, Arterial Blood HCO3 21L, Arterial Blood Total CO2 22.6, Arterial Blood Oxygen Saturation 84L, Arterial Blood Base Excess -4.1L, Isaias Test POSITIVE, Blood Gas Ventilator Setting YES, Blood Gas Inspired Oxygen 40% FIO2 09/09/18 03:55: Sodium Level 144, Potassium Level 3.5L, Chloride Level 112H, Carbon Dioxide Level 21, Anion Gap 11, Blood Urea Nitrogen 39H, Creatinine 2.94#H, Estimat Glomerular Filtration Rate 22, BUN/Creatinine Ratio 13, Glucose Level 227H, Calcium Level 7.5L, Phosphorus Level 3.7, Magnesium Level 1.9 09/09/18 06:40: Blood Gas Puncture Site RIGHT RADIAL, Blood Gas Patient Temperature 98.9, Arterial Blood pH 7.38, Arterial Blood Partial Pressure CO2 37, Arterial Blood Partial Pressure O2 74L, Arterial Blood HCO3 21L, Arterial Blood Total CO2 22.4 , Arterial Blood Oxygen Saturation 96, Arterial Blood Base Excess -3.0L, Isaias Test POSITIVE, Blood Gas Ventilator Setting YES, Blood Gas Inspired Oxygen 40% FIO2 Microbiology 09/07/18 Blood Culture - Final, Complete No growth 09/07/18 Gram Stain - Final, Resulted 09/07/18 Anaerobic Culture, Resulted Pending 09/07/18 Surgical Culture - Preliminary, Resulted Enterobacter Cloacae Complex Gram Pos Mixed Bacterial Leslie 09/07/18 Gram Stain - Final, Resulted 09/07/18 Sputum Culture - Preliminary, Resulted No growth Assessment/Plan Assessment/Plan Assessment/Plan hollow viscus perforation septic shock acute renal failure metastatic lung cancer respiratory failure s/p ex lap les patch for pyloric perforation anemia zosyn, vancomycin, flagyl, diflucan receiving IV fluid protonix drip Levo wean as tolerates as blood pressure permits. NPO irene for accurate i/o continue to monitor anemia hold on lovenox due to anemia scd for dvt prophylaxis Diagnosis/Problems Diagnosis/Problems (1) Shock, septic Status: Acute (2) Intra-abdominal free air of unknown etiology Status: Acute (3) Perforated abdominal viscus Status: Acute (4) Metastatic squamous cell carcinoma to lung Status: Acute Qualifiers: Qualified Codes: C78.01 - Secondary malignant neoplasm of right lung (5) COPD exacerbation Status: Acute (6) Acute renal failure Status: Acute Qualifiers: Qualified Codes: N17.9 - Acute kidney failure, unspecified (7) Hypercalcemia Status: Acute (8) Hyponatremia Status: Acute (9) Atrial fibrillation Status: Chronic (10) Alcoholism Status: Chronic Clinical Quality Measures DVT/VTE Risk/Contraindication: Risk Factor Score Per Nursin RFS Level Per Nursing on Admit: 4+=Very High ALYX BIRD DO Sep 09, 2018 08:16
[2018-09-09] MEDS: FLUCONAZOLE 200 MG/100 ML 100 ML IV SCH (08:45)
[2018-09-09] MEDS: metroNIDAZOLE 500MG/100ML IVPB 100 ML IV SCH ×3 (08:45→14:42)
[2018-09-09 09:30] LABS: ABG BASE EXCESS -3.6 MMOL/L (-2.5-2.5); ABG OXYGEN SATURATION 95 % (94-100); ABG PCO2 46 MMHG (35-45); ABG PO2 80 MMHG (79-93); ABG TCO2 23.4 MMOL/L (21.0-31.0)
[2018-09-09 09:31] LABS: ALLENS TEST YES-POS; INSPIRED O2 40%; PATIENT TEMP 97.6; VENTILATOR YES
--- NOTE | 2018-09-09 09:40 | NUR ---
pt extubated to vapotherm 20 liters and 40% fio2. dr almendarez notified and he and palliative care here to talk to pt and his .
--- NOTE | 2018-09-09 10:09 | NUR ---
Palliative Care RN and Dr. Bridges went to patient room at his request to discuss his options. Dr. Bridges did a good job explaining to the patient his medical situation. Due to his recent extubation and the medication in his system Dr. Bridges would like to wait 24-48 hours before making a decision for future POC. Will follow along and assist where needed.
--- NOTE | 2018-09-09 10:58 | Progress Note-Hospitalist ---
CATARINA GILLESPIE DO 09/09/18 1058: Subjective HPI/CC On Admission CC: Perforated pyloric ulcer HPI: This is a 62-year-old white male who is currently intubated after an emergent surgery for free air on CT scan and revealing perforated pyloric ulcer. Patient has a history of lung cancer squamous cell with metastasis and overall his prognosis is extremely poor at baseline. Reviewed operative notes labs and current medication list. He is currently intubated on pressor therapy aggressive IV fluids and IV antibiotics broad spectrum. Subjective/Events-last exam Pt just extubated Checked meds and labs Appreciate Dr Bridges expertise. Review of Systems Pulmonary: Dyspnea Focused Exam Lactate Level 09/07/18 21:15: Lactic Acid Level 1.79 09/08/18 03:35: Lactic Acid Level 1.47 09/10/18 08:45: Lactic Acid Level 0.61 Time of Focused Exam: 07:35 Lactic Acid Level Laboratory Tests Test 09/10/18 08:45 Lactic Acid Level 0.61 MMOL/L (0.50-2.00) Objective Exam Vital Signs Vital Signs Date Time Temp Pulse Resp B/P (MAP) Pulse Ox O2 Delivery O2 Flow Rate FiO2 09/10/18 11:00 97.6 09/10/18 10:57 83 23 97 50.00 09/10/18 10:00 108/82 (91) Vapotherm 09/10/18 08:35 50 Capillary Refill : Less Than 3 Seconds General Appearance: WD/WN, Chronically ill, Mild Distress Respiratory: Chest Non Tender, Normal Breath Sounds, No Accessory Muscle Use, No Respiratory Distress, Crackles, Decreased Breath Sounds Cardiovascular: Regular Rate, Rhythm, No Gallop, No JVD, No Murmur, Normal Peripheral Pulses Neurologic/Psychiatric: Alert Results/Procedures Lab Laboratory Tests 09/10/18 03:55 Patient resulted labs reviewed. Imaging: Reviewed Imaging Films, Reviewed Imaging Report Assessment/Plan Assessment and Plan Assess & Plan/Chief Complaint Assessment: Septic shock PREM Perforated pylorus s/p Ex Lap w/ james patch repair Squamous cell carcinoma of lung w/mets VDRF s/p extubation Plan: ICU Sepsis protocol IV broad spectrum abx Prognosis guarded Critical Care Critical Care: Critically Ill Patient Diagnosis/Problems Diagnosis/Problems (1) Shock, septic Status: Resolved Resolution Date/Time: 09/10/18 @ 12:08 (2) Lung mass Status: Chronic (3) Atrial fibrillation Status: Chronic Qualifiers: Atrial fibrillation type: paroxysmal Qualified Codes: I48.0 - Paroxysmal atrial fibrillation (4) COPD exacerbation Status: Acute Clinical Quality Measures DVT/VTE Risk/Contraindication: Risk Factor Score Per Nursin RFS Level Per Nursing on Admit: 4+=Very High ARABELLA BAIG MEDICAL STUDENT 09/09/18 1229: Subjective HPI/CC On Admission Date Seen by Provider: Sep 09, 2018 Time Seen by Provider: 07:50 CC: Abdominal pain HPI: This is a 62 yo M w/ a hx of squamous cell carcinoma of the lung diagnosed within the last month who presented to the ER on Thursday morning with severe abdominal pain and dyspnea. Pt states he saw his PCP Thursday for what felt to him like increased GERD symptoms and associated back pain. On Thursday evening while eating dinner he felt "something pop" in his stomach and the pain worsened immensely. On arrival to the ED he was noted to be hypotensive and likely peritoneal with signs of an acute abdomen. CT/AP showed perforation and he was taken to OR for emergent surgery by Dr. Alegre. He was found to have a perforation of his pylorus which was repaired with James patch. Notably, the pt was still hypotensive after 3 L boluses of fluid on way to OR, indicating septic shock. Pt is DNR but desired surgery so was intubated at that time. Subjective/Events-last exam Pt is improving, he has been taken off Vasopressin He is till requiring IVF and Levophed. Dr. Bridges is attempting to wean pt off ventilator to BiPAP today was present at bedside; all concerns were addressed. Review of Systems ROS limited due to patient condition Objective Exam General Appearance: WD/WN, Chronically ill, Mild Distress HEENT: Moist Mucous Membranes, Pharyngeal Erythema (s/p extubation) Neck: Full Range of Motion, Normal Inspection, Non Tender, Supple Respiratory: Chest Non Tender, Normal Breath Sounds, No Accessory Muscle Use, No Respiratory Distress, Rhonci Cardiovascular: Regular Rate, Rhythm, No Gallop, No Murmur, Normal Peripheral Pulses, Other (mild edema in bilateral hands) Gastrointestinal: Normal Bowel Sounds, No Organomegaly, No Pulsatile Mass, Non Tender, Soft, Distended (mildly), Other (Midline incision was C/D/I, drain in place w/ clean bandages, somewhat cloudy, serous fluid) Extremity: No Pedal Edema Neurologic/Psychiatric: Alert Skin: Normal Color, Warm/Dry Assessment/Plan Assessment and Plan Assess & Plan/Chief Complaint Assessment: Septic shock, improving Respiratory failure requiring ventilation PREM Anemia Leukemoid reaction Perforated pylorus s/p ExLap w/ james patch repair Squamous cell carcinoma of lungs Plan: Attempting to wean patient off of ventilator to BiPAP Continue IV antibiotics, will tailor to Enterobacter Cloacae which was found on abdominal fluid culture Continue to monitor vital signs Maintain pressure w/ IVF and pressors as needed Monitor anemia, if it worsens he may need transfusion or workup for hemorrhage DVT prophylaxis w/ SCDs (1) Shock, septic Resolution Date/Time: 09/10/18 @ 12:08 (2) Perforated abdominal viscus (3) RESPIRATORY FAILURE, UNSP, UNSP W HYPOXIA OR HYPERCAPNIA (4) Acute renal failure (5) Metastatic squamous cell carcinoma to lung (6) DVT prophylaxis (7) Leukemoid reaction Critical Care Critical Care: Critically Ill Patient CATARINA GILLESPIE DO Sep 09, 2018 10:58 ARABELLA BAIG MEDICAL STUDENT Sep 09, 2018 12:29
--- NOTE | 2018-09-09 11:35 | NUR ---
Pastoral care visit with pt, and son at bedside, offered support and prayer.
[2018-09-09] MEDS ORDERED: TROUGH ORDER-PHARMACY XX NR ×2 (12:00)
[2018-09-09] MEDS: fentaNYL INJECTION 100 MCG/2 ML AMP IV PRN (18:52)
[2018-09-09] MEDS ORDERED: diphenhydrAMINE 25 MG TAB (BENADRYL) PO NR (19:57)
[2018-09-09] MEDS ORDERED: QUEtiapine 25 MG (SEROquel) TAB IMMEDIATE RELEASE PO NR (19:58)
[2018-09-09] MEDS ORDERED: diphenhydrAMINE 50 MG/ML INJ (BENADRYL) IV ONE (21:30)
[2018-09-10] VITALS (33 sets, daily range): BP systolic 96–129; BP diastolic 58–83
[2018-09-10] MEDS: metroNIDAZOLE 500MG/100ML IVPB 100 ML IV SCH ×4 (00:07→23:59)
[2018-09-10] MEDS: SODIUM BICARBONATE 8.4% VIAL 100 MEQ in 1/2 NS IV SOLUTION 1,000 ML IV SCH (00:12)
[2018-09-10] MEDS: inSUlin ASPART (NovoLOG) 1 UNIT/0.01 ML (CHARGE PER UNIT) SQ SCH ×5 (00:16→23:58)
[2018-09-10] MEDS: RT-ALBUTEROL/IPRATROPIUM 3 ML (DUONEB) VIAL INH SCH ×6 (01:06→22:21)
[2018-09-10] MEDS: RT-ALBUTEROL/IPRATROPIUM 3 ML (DUONEB) VIAL INH PRN (01:25)
[2018-09-10] MEDS ORDERED: FUROSEMIDE 40 MG/4 ML INJ (LASIX) ONE (02:06)
[2018-09-10] MEDS ORDERED: LORazepam INJ 2 MG/ML (ATIVAN) VIAL ONE (02:07)
[2018-09-10] MEDS: FUROSEMIDE 40 MG/4 ML INJ (LASIX) IV ONE ×2 (02:20→04:54)
[2018-09-10] MEDS ORDERED: LORazepam INJ 2 MG/ML (ATIVAN) VIAL IV ONE (03:45)
[2018-09-10 04:04] LABS: BASOPHILS % (AUTO) 0 % (0-10); EOSINOPHILS % (AUTO) 0 % (0-10); HEMATOCRIT 22 % (40-54); HEMOGLOBIN 7.3 G/DL (13.3-17.7); LYMPHOCYTES # (AUTO) 0.6 X 10^3 (1.0-4.0); LYMPHOCYTES % (AUTO) 1 % (12-44); MEAN CORPUSCULAR HEMOGLOBIN 29 PG (25-34); MEAN CORPUSCULAR HGB CONC 33 G/DL (32-36); MEAN CORPUSCULAR VOLUME 90 FL (80-99); MEAN PLATELET VOLUME 9.9 FL (7.4-10.4); MONOCYTES # (AUTO) 0.9 X 10^3 (0.0-1.0); MONOCYTES % (AUTO) 2 % (0-12); NEUTROPHILS # (AUTO) 40.6 X 10^3 (1.8-7.8); NEUTROPHILS % (AUTO) 96 % (42-75); PLATELET COUNT 196 10^3/uL (130-400); RED CELL DISTRIBUTION WIDTH 15.2 % (10.0-14.5)
[2018-09-10 04:06] LABS: WHITE BLOOD COUNT 42.1 10^3/uL (4.3-11.0)
[2018-09-10 04:15] LABS: ABG BASE EXCESS -1.6 MMOL/L (-2.5-2.5); ABG OXYGEN SATURATION 87 % (94-100); ABG PCO2 54 MMHG (35-45); ABG PO2 57 MMHG (79-93); ABG TCO2 26.1 MMOL/L (21.0-31.0)
[2018-09-10 04:18] LABS: ABG PH 7.28 (7.37-7.43); ALLENS TEST YES-POS; INSPIRED O2 60%VAPOTHERM; VENTILATOR NO
[2018-09-10 04:19] LABS: PATIENT TEMP 97.8
[2018-09-10 04:23] LABS: CREATININE SERUM 3.34 MG/DL (0.60-1.30); MAGNESIUM 1.8 MG/DL (1.8-2.4); PHOSPHORUS 4.2 MG/DL (2.3-4.7); POTASSIUM 3.9 MMOL/L (3.6-5.0)
[2018-09-10] MEDS ORDERED: DEXTROSE 50% 50 ML (IMS) SYR ONE (04:35)
[2018-09-10] MEDS ORDERED: DEXTROSE 50% 50 ML (IMS) SYR IV ONE (04:45)
[2018-09-10] MEDS ORDERED: FUROSEMIDE 40 MG/4 ML INJ (LASIX) IVP ONE (05:00)
[2018-09-10] MEDS ORDERED: methylPREDNISolone 125 MG (Solu-MEDROL) VIAL IVP ONE (05:00)
[2018-09-10] MEDS ORDERED: DILTIAZEM 25 MG/5 ML INJ (CARDIZEM) VIAL ONE (05:05)
--- NOTE | 2018-09-10 05:07 | Pulmonary Progress Note ---
Subjective Time Seen by a Provider: 05:19 Subjective/Events-last exam Pt is having respiratory distress. He is a full DNR now. He is also tachycardic 160's. Sepsis Event Evaluation Height, Weight, BMI Height: 5'9.00" Weight: 209lbs. 0.1oz. 94.799654pp; 25.3 BMI Method:Stated Focused Exam Lactate Level 09/07/18 12:55: Lactic Acid Level 2.92*H 09/07/18 21:15: Lactic Acid Level 1.79 09/08/18 03:35: Lactic Acid Level 1.47 Time of Focused Exam: 07:35 Exam Exam Vital Signs Date Time Temp Pulse Resp B/P (MAP) Pulse Ox O2 Delivery O2 Flow Rate FiO2 09/10/18 04:58 97.1 09/10/18 03:15 113 21 118/78 (91) 99 Vapotherm 60.00 35.00 09/10/18 02:13 Vapotherm 60.00 35.00 09/10/18 02:00 112 21 129/83 (98) 100 Vapotherm 45.00 20.00 09/10/18 01:25 97 Vapotherm 30.00 80 09/10/18 01:06 91 Vapotherm 20.00 45 09/10/18 01:00 107 09/10/18 01:00 107 20 123/72 (89) 92 Vapotherm 45.00 20.00 09/10/18 00:20 Mechanical Ventilator 40.00 09/10/18 00:13 97.6 09/10/18 00:00 105 21 121/76 (91) 95 Vapotherm 45.00 20.00 09/09/18 23:00 104 18 117/72 (87) 94 Vapotherm 45.00 20.00 09/09/18 22:00 107 19 116/72 (87) 95 Vapotherm 45.00 20.00 09/09/18 21:09 95 Vapotherm 20.00 45 09/09/18 21:00 102 21 117/70 (86) 96 Vapotherm 45.00 20.00 09/09/18 20:00 100 22 115/72 (86) 94 Vapotherm 45.00 20.00 09/09/18 20:00 Mechanical Ventilator 40.00 09/09/18 19:04 95 Vapotherm 20.00 45 09/09/18 19:00 97.7 96 19 102/64 (77) 95 Vapotherm 45.00 20.00 09/09/18 19:00 104 09/09/18 18:00 100 21 107/65 (79) 94 Vapotherm 40.00 20.00 09/09/18 17:00 99 23 102/68 (79) 94 Vapotherm 40.00 20.00 09/09/18 16:30 96 22 117/67 (84) 93 Vapotherm 40.00 20.00 09/09/18 16:00 Mechanical Ventilator 40.00 09/09/18 16:00 93 14 109/104 (106) 96 Vapotherm 40.00 20.00 09/09/18 15:00 96 22 107/68 (81) 95 Vapotherm 40.00 20.00 09/09/18 14:00 98 25 112/71 (85) 95 Vapotherm 40.00 20.00 09/09/18 13:42 95 Vapotherm 20.00 40 09/09/18 13:00 95 09/09/18 13:00 96 23 104/67 (79) 95 Vapotherm 40.00 20.00 09/09/18 12:00 Mechanical Ventilator 40.00 09/09/18 12:00 98 25 104/71 (82) 95 Vapotherm 40.00 20.00 09/09/18 12:00 98.3 09/09/18 11:00 101 28 107/68 (81) 95 Vapotherm 40.00 20.00 09/09/18 10:00 102 21 112/89 (97) 95 Vapotherm 40.00 20.00 09/09/18 09:35 98 23 97 40 09/09/18 09:00 89 18 118/76 (90) 98 Mechanical Ventilator 40.00 09/09/18 08:00 Mechanical Ventilator 40.00 09/09/18 08:00 71 21 118/74 (89) 96 Mechanical Ventilator 40.00 09/09/18 07:31 97.7 59 20 129/79 97 Mechanical Ventilator 40.00 09/09/18 07:00 58 09/09/18 07:00 96.8 09/09/18 07:00 58 22 135/77 (96) 97 Mechanical Ventilator 40.00 09/09/18 06:08 59 20 97 40 I & O 09/10/18 07:00 Intake Total 1300 ml Output Total 3065 ml Balance -1765 ml Height & Weight Height: 5'9.00" Weight: 209lbs. 0.1oz. 94.492130ua; 25.3 BMI Method:Stated General Appearance: WD/WN, Chronically ill, Moderate Distress HEENT: Moist Mucous Membranes, Pharyngeal Erythema (s/p extubation) Neck: Full Range of Motion, Normal Inspection, Non Tender, Supple Respiratory: Chest Non Tender, Normal Breath Sounds, No Accessory Muscle Use, No Respiratory Distress, Rhonci Cardiovascular: Regular Rate, Rhythm, No Gallop, No Murmur, Normal Peripheral Pulses, Irregularly Irregular, Tachycardia, Other (mild edema in bilateral hands ) Capillary Refill: Less Than 3 Seconds Peripheral Pulses: 2+ Radial Pulses (R) Gastrointestinal: soft, tenderness (incisional, no signs of infection) Extremity: No Pedal Edema Neurologic/Psychiatric: Alert Skin: Normal Color, Warm/Dry Lymphatic: No Adenopathy Results Lab Laboratory Tests 09/09/18 03:45 09/09/18 03:55 09/10/18 03:55 Assessment/Plan Assessment/Plan Acute abdomen with severe sepsis s/p ex lap - dx pyloric perforation with placement of les patch -Continue vanco, Zosyn, Flagyl -Blanco cultures pending -Protonix Acute on chronic respiratory failure -PT extubated yesterday. -While on the vent pt was writing notes stating he wanted to stop all medical treatment. After extubation he agreed to wait anther 1-2 days to decide that. -Currently on Vapotherm. He is currently having respiratory distress and is wheezy. -Lasix x1, Solumedrol 125 x 1 then 40 Q6 -Pain control/sedation AFib RVR ( 160's) -Cardizem 10mg bolus then start gtt -Check troponins x 3 -CHeck EKG Septic shock -Repeat liter bolus- Levophed - continue to titrate to D/c. Vasopressin is now off -Check CVP monitoring -solucortef Squamous cell lung cancer dx 08/26 via bronch EBUS -Has not seen oncology yet Acute renal failure -IVF Metabolic lactic acidosis -repeat 2 amps of bicarb Anemia- monitor -Transfuse 1 unit of PRBC Hx of COPD -SHIRA BISWAS DO Sep 10, 2018 05:07
[2018-09-10] MEDS ORDERED: DILTIAZEM 125 MG/25 ML IV (CARDIZEM) IV ONE ×2 (05:11→06:02)
[2018-09-10] MEDS ORDERED: NS (IVPB) 100 ML ONE (05:13)
[2018-09-10] MEDS ORDERED: DILTIAZEM INJECTION 125 MG in NS (IVPB) 100 ML IV SCH (05:15)
[2018-09-10] MEDS ORDERED: DILTIAZEM 25 MG/5 ML INJ (CARDIZEM) VIAL IVP ONE ×2 (05:15→06:15)
--- NOTE | 2018-09-10 05:30 | NUR ---
At 0211 this RN called EICU to report patient breathing has become increasingly labored and patient lethargic. New orders received at this time. 0330 this RN called EICU to request NG placement be checked on AM chest x-ray. New orders received at this time. 0500 Dr. Bridges at bedside, pt HR increased to 150's. New orders received at this time. Dr. Bridges assessed distention of stomach around abdominal incision. No new orders at this time.
[2018-09-10] MEDS: MAGNESIUM 1 GM/100 ML IVPB 100 ML IV SCH (05:31)
[2018-09-10] MEDS: POTASSIUM CL 10MEQ/50ML IVPB 50 ML IV SCH ×5 (05:31→09:02)
[2018-09-10] MEDS: DILTIAZEM INJECTION 125 MG in NS (IVPB) 100 ML IV SCH (05:33)
[2018-09-10] MEDS ORDERED: D5 LR IV SOLUTION 1,000 ML IV ONE (05:42)
[2018-09-10] MEDS ORDERED: methylPREDNISolone 125 MG (Solu-MEDROL) VIAL ONE (05:43)
[2018-09-10] MEDS: D5 LR IV SOLUTION 1,000 ML IV SCH ×2 (06:14→16:48)
[2018-09-10] MEDS: methylPREDNISolone 40 MG/ML (Solu-MEDROL) VIAL IV SCH ×4 (06:14→23:59)
[2018-09-10] MEDS: KCL 20 MEQ TAB (K-DUR) PO SCH (06:15)
[2018-09-10] MEDS: PIPERACILLIN SODIUM/TAZOBACTAM 4.5 GM in NS (IVPB) 100 ML IV SCH (07:51)
[2018-09-10] MEDS ORDERED: NS IV 500 ML 500 ML ONE (07:57)
--- NOTE | 2018-09-10 08:19 | Diagnostic Imaging Report ---
INDICATION: Post extubation. TECHNIQUE: Single view chest 3:06 AM. CORRELATION STUDY: 09/09/2018 FINDINGS: There has been apparent interval extubation since the prior study. Tubing appears be likely coiled at the level of the throat likely interval retraction of the nasogastric tube. A right IJ line tip projects over the lower SVC, stable. Heart size enlarged, mediastinum prominent, likely relatively stable. There appears to be increasing infiltrate and/or atelectasis of the left lung base along with left pleural effusion. Consolidation in the right upper lung with apical density stable. IMPRESSION: 1. Interval extubation. 2. The nasogastric tube also appears to have been retracted and likely coiled within the throat. (I have been instructed that this tubing has been removed after x-ray taken.) 3. Increasing infiltrate and/or atelectasis along with effusion of the left lung base. Stable consolidation in the right upper lobe. Dictated by: Dictated on workstation # [id number]
--- NOTE | 2018-09-10 08:27 | Progress Note-Hospitalist ---
CATARINA GILLESPIE 09/10/18 0826: Subjective HPI/CC On Admission Date Seen by Provider: Sep 10, 2018 Time Seen by Provider: 09:30 CC: Abdominal pain HPI: This is a 62 yo M w/ a hx of squamous cell carcinoma of the lung diagnosed within the last month who presented to the ER on Thursday morning with severe abdominal pain and dyspnea. Pt states he saw his PCP Thursday for what felt to him like increased GERD symptoms and associated back pain. On Thursday evening while eating dinner he felt "something pop" in his stomach and the pain worsened immensely. On arrival to the ED he was noted to be hypotensive and likely peritoneal with signs of an acute abdomen. CT/AP showed perforation and he was taken to OR for emergent surgery by Dr. Alegre. He was found to have a perforation of his pylorus which was repaired with James patch. Notably, the pt was still hypotensive after 3 L boluses of fluid on way to OR, indicating septic shock. Pt is DNR but desired surgery so was intubated at that time. Subjective/Events-last exam Patient doing well Extubation went well yesterday Still requiring BiPAP at times at bedside Creatinine is more elevated today at 3.34 Unsure of the prognosis and we are beginning to talk about comfort care Focused Exam Lactate Level 09/08/18 03:35: Lactic Acid Level 1.47 09/10/18 08:45: Lactic Acid Level 0.61 Time of Focused Exam: 07:35 Objective Exam Vital Signs Vital Signs Date Time Temp Pulse Resp B/P (MAP) Pulse Ox O2 Delivery O2 Flow Rate FiO2 09/10/18 20:19 80 22 95 40.00 09/10/18 19:50 98.2 NIV Bilevel 09/10/18 08:35 50 Capillary Refill : Less Than 3 Seconds General Appearance: WD/WN, Chronically ill, Cachetic, Mild Distress Respiratory: Chest Non Tender, Normal Breath Sounds, No Accessory Muscle Use, No Respiratory Distress, Crackles, Inspiration, Respiratory Distress Cardiovascular: No Edema, No Gallop, No JVD, No Murmur, Normal Peripheral Pulses, Irregularly Irregular, Tachycardia Neurologic/Psychiatric: Alert, Oriented x3, No Motor/Sensory Deficits, Normal Mood/Affect Results/Procedures Lab Laboratory Tests 09/10/18 03:55 09/10/18 14:18 Patient resulted labs reviewed. Imaging: Reviewed Imaging Films, Reviewed Imaging Report Assessment/Plan Assessment and Plan Assess & Plan/Chief Complaint Assessment: Septic shock PREM Perforated pylorus s/p Ex Lap w/ james patch repair Squamous cell carcinoma of lung w/mets Plan: ICU Sepsis protocol IV broad spectrum abx Prognosis guarded Critical Care Critical Care: Critically Ill Patient Clinical Quality Measures DVT/VTE Risk/Contraindication: Risk Factor Score Per Nursin RFS Level Per Nursing on Admit: 4+=Very High YAWALETHEAARABELLA MEDICAL STUDENT 09/10/18 1214: Subjective HPI/CC On Admission CC: Abdominal pain HPI: This is a 62 yo M w/ a hx of squamous cell carcinoma of the lung diagnosed within the last month who presented to the ER on Thursday morning with severe abdominal pain and dyspnea. Pt states he saw his PCP Thursday for what felt to him like increased GERD symptoms and associated back pain. On Thursday evening while eating dinner he felt "something pop" in his stomach and the pain worsened immensely. On arrival to the ED he was noted to be hypotensive and likely peritoneal with signs of an acute abdomen. CT/AP showed perforation and he was taken to OR for emergent surgery by Dr. Alegre. He was found to have a perforation of his pylorus which was repaired with James patch. Notably, the pt was still hypotensive after 3 L boluses of fluid on way to OR, indicating septic shock. Pt is DNR but desired surgery so was intubated at that time. Subjective/Events-last exam Pt has been weaned off of ventilator but is requiring intermittent BiPAP He denies fever/chills, or any pain He has been discussing prognosis and potential termination of life supporting care, remains undecided at this time still at bedside Review of Systems General: No Chills HEENT: No Head Aches Pulmonary: Dyspnea; No Cough Cardiovascular: No: Chest Pain Gastrointestinal: No: Nausea, Vomiting, Abdominal Pain Neurological: No: Change in speech, Confusion Objective Exam General Appearance: WD/WN, Chronically ill, Cachetic, Mild Distress HEENT: PERRL/EOMI, Moist Mucous Membranes, Pharyngeal Erythema Neck: Full Range of Motion, Normal Inspection, Non Tender, Supple Respiratory: Chest Non Tender, Normal Breath Sounds, No Accessory Muscle Use, Crackles, Inspiration, Respiratory Distress Cardiovascular: Irregularly Irregular, Tachycardia Gastrointestinal: Normal Bowel Sounds, No Organomegaly, No Pulsatile Mass, Non Tender, Soft, Other (midline incision well healing, darren in place, C/D/I, no erythema) Extremity: Pedal Edema, Swelling Neurologic/Psychiatric: Alert, Oriented x3, No Motor/Sensory Deficits, Normal Mood/Affect Skin: Normal Color, Warm/Dry Lymphatic: No Adenopathy Results/Procedures Imaging: Reviewed Imaging Films, Reviewed Imaging Report Assessment/Plan Assessment and Plan Assess & Plan/Chief Complaint Assessment: Atrial fibrillation Septic shock, improving Respiratory failure requiring intermittent BiPAP PREM Anemia Leukemoid reaction Perforated pylorus s/p ExLap w/ james patch repair Squamous cell carcinoma of lungs Plan: Chemical cardioversion w/ Cardizem drip Attempting to wean patient completely off of BiPAP Continue IV antibiotics, will tailor to Enterobacter Cloacae which was found on abdominal fluid culture Continue to monitor vital signs Maintain pressure w/ IVF and pressors as needed Monitor anemia, he has already been transfused once DVT prophylaxis w/ SCDs Maintain communication on possibly starting end of life care Critical Care Critical Care: Critically Ill Patient Diagnosis/Problems Diagnosis/Problems (1) Acute renal failure Status: Acute Qualifiers: Acute renal failure type: unspecified Qualified Codes: N17.9 - Acute kidney failure, unspecified (2) Metastatic squamous cell carcinoma to lung Status: Acute Qualifiers: Laterality: right Qualified Codes: C78.01 - Secondary malignant neoplasm of right lung (3) Perforated abdominal viscus Status: Acute (4) Leukemoid reaction (5) Shock, septic Status: Resolved Resolution Date/Time: 09/10/18 @ 12:08 (6) Atrial fibrillation Status: Chronic Qualifiers: Atrial fibrillation type: paroxysmal Qualified Codes: I48.0 - Paroxysmal atrial fibrillation (7) DVT prophylaxis Status: Acute CATARINA GILLESPIE DO Sep 10, 2018 08:26 ARABELLA BAIG MEDICAL STUDENT Sep 10, 2018 12:14
--- NOTE | 2018-09-10 08:37 | Diagnostic Imaging Report ---
INDICATION: Tube placement. TECHNIQUE: Single view chest at 4:11 AM. CORRELATION STUDY: 09/10/2018. FINDINGS: A gastric tube and right IJ central line are present. The gastric tube appears to have been repositioned since the prior study. Infiltrate about the left lung base persists. Left pleural effusion. On the right, consolidation and lung volume loss of the right lung apex along with density in the right lung apex are stable. IMPRESSION: 1. Apparent interval repositioning of the gastric tube with the tip now in the left upper quadrant of the body of the stomach. 2. Bilateral pulmonary infiltrates involving the left lung base and right lung apex. The findings are relatively stable. Dictated by: Dictated on workstation # [id number]
[2018-09-10 09:20] LABS: ABG OXYGEN SATURATION 91 % (94-100); ABG PCO2 53 MMHG (35-45); ABG PO2 60 MMHG (79-93); ABG TCO2 25.9 MMOL/L (21.0-31.0)
[2018-09-10 09:22] LABS: ABG PH 7.27 (7.37-7.43); ALLENS TEST POSITIVE; INSPIRED O2 50% 40L; PATIENT TEMP 96.4; VENTILATOR NO
--- NOTE | 2018-09-10 09:55 | NUR ---
Palliative Care RN in to see patient. Spoke with nurse prior to visit as swell as spoke with Dr. Avilez. Dr. Avilez is on board now for new AFib w RVR which could be contributing to his SOB. Now on BiPAP not Vapotherm. He is alert, but due to mask is not able to answer questions verbally, only shakes head yes and no. Denies feeling any better. Seems to understand his situation. No family is in the room at this time. Will continue to follow.
[2018-09-10] MEDS ORDERED: DIGOXIN 0.25 MG/ML (LANOXIN) 2 ML AMP IV NR (10:00)
--- NOTE | 2018-09-10 10:03 | Consultation-Cardiology ---
HPI-Cardiology Cardiology Consultation Date of Consultation 09/10/18 Date of Admission Time Seen by Provider: 10:00 Indication: Atrial fibrillation HPI 62 years old gentleman with history of metastatic squamous cell carcinoma of the lung diagnosed recently. Presented to the emergency room with acute abdomen and perforated bowel. Underwent emergency surgery. Postoperatively patient remained intubated, he was extubated yesterday. Still on BiPAP. Fairly short of breath unable to provide full history, history was obtained by reviewing his record. He is currently short of breath. In atrial fibrillation with borderline tachycardia. Has been in septic shock with hypotension. Blood pressure is better. Home Medications & Allergies Allergies: Coded Allergies: iodine (Verified Allergy, Unknown, 09/25/05) Home Medication List Reviewed: Yes NST-[id number]-Lgpyog Hx Patient Social History Marital Status: Alcohol Use: Denies Use Recreational Drug Use: No Smoking Status: Current Everyday Smoker Type Used: Cigarettes 2nd Hand Smoke Exposure: Yes Recent Foreign Travel: No Recent Infectious Disease Expo: No Recent Hopitalizations: No Physical Abuse Screen: No Sexual Abuse: No Immunizations Up To Date Tetanus Booster (TDap): Unknown Past Medical History past medical history discussed below Family Medical History Significant Family History: No Pertinent Family Hx Family History: Abdominal aortic aneurysm G8 SISTER, Arthritis 19 FATHER 19 MOTHER Diabetes mellitus 19 MOTHER (Borderline diabetic) No Family History of: AIDS Dallas's disease Alcoholism Alzheimer's disease Aphasia Asthma Cancer of mouth Cardiovascular disease Cataracts Colon cancer Completed stroke Congenital disease Congenital heart disease Coronary thrombosis Cystic fibrosis Deafness or hearing loss Dementia Drug abuse Dysphasia Fibrocystic disease of breast Gastroenteritis Glaucoma Headache disorder Hypercholesterolemia Hypertension Infertility Kidney disease Myocardial infarction Neoplasm Not obtainable due to adoption Osteoporosis Parkinson's disease Prostate cancer Psychosocial problem Respiratory disorder Seizure disorder Severe allergy Thyroid disease Tuberculosis Visual disorder Review of Systems Constitutional: see HPI, other (unable to provide review of systems due to his current condition, currently in respiratory failure) EENTM: see HPI Respiratory: see HPI, dyspnea on exertion, orthopnea, short of breath, wheezing Cardiovascular: see HPI Genitourinary: see HPI Musculoskeletal: see HPI Skin: see HPI Psychiatric/Neurological: See HPI Reviewed Test Results Reviewed Test Results Lab Laboratory Tests Test 09/09/18 12:10 09/09/18 17:52 09/10/18 00:15 09/10/18 03:55 Range/Units Glucometer 151 H 93 68 L 70-110 MG/DL White Blood Count 42.1 *H 4.3-11.0 10^3/uL Red Blood Count 2.48 L 4.35-5.85 10^6/uL Hemoglobin 7.3 L 13.3-17.7 G/DL Hematocrit 22 L 40-54 % Mean Corpuscular Volume 90 80-99 FL Mean Corpuscular Hemoglobin 29 25-34 PG Mean Corpuscular Hemoglobin Concent 33 32-36 G/DL Red Cell Distribution Width 15.2 H 10.0-14.5 % Platelet Count 196 130-400 10^3/uL Mean Platelet Volume 9.9 7.4-10.4 FL Neutrophils (%) (Auto) 96 H 42-75 % Lymphocytes (%) (Auto) 1 L 12-44 % Monocytes (%) (Auto) 2 0-12 % Eosinophils (%) (Auto) 0 0-10 % Basophils (%) (Auto) 0 0-10 % Neutrophils # (Auto) 40.6 H 1.8-7.8 X 10^3 Lymphocytes # (Auto) 0.6 L 1.0-4.0 X 10^3 Monocytes # (Auto) 0.9 0.0-1.0 X 10^3 Eosinophils # (Auto) 0.0 0.0-0.3 10^3/uL Basophils # (Auto) 0.0 0.0-0.1 10^3/uL Sodium Level 147 H 135-145 MMOL/L Potassium Level 3.9 3.6-5.0 MMOL/L Chloride Level 113 H 98-107 MMOL/L Carbon Dioxide Level 22 21-32 MMOL/L Anion Gap 12 5-14 MMOL/L Blood Urea Nitrogen 44 H 7-18 MG/DL Creatinine 3.34 #H 0.60-1.30 MG/DL Estimat Glomerular Filtration Rate 19 BUN/Creatinine Ratio 13 Glucose Level 60 *L 70-105 MG/DL Calcium Level 8.0 L 8.5-10.1 MG/DL Phosphorus Level 4.2 2.3-4.7 MG/DL Magnesium Level 1.8 1.8-2.4 MG/DL Troponin I 0.125 <0.028 NG/ML Test 09/10/18 04:10 09/10/18 08:45 09/10/18 09:14 Range/Units Blood Gas Puncture Site RT RADIAL LEFT RADIAL Blood Gas Patient Temperature 97.8 96.4 Arterial Blood pH 7.28 *L 7.27 *L 7.37-7.43 Arterial Blood Partial Pressure CO2 54 H 53 H 35-45 MMHG Arterial Blood Partial Pressure O2 57 L 60 L 79-93 MMHG Arterial Blood HCO3 24 24 23-27 MMOL/L Arterial Blood Total CO2 26.1 25.9 21.0-31.0 MMOL/L Arterial Blood Oxygen Saturation 87 L 91 L 94-100 % Arterial Blood Base Excess -1.6 -2.0 -2.5-2.5 MMOL/L Isaias Test YES-POS POSITIVE Blood Gas Ventilator Setting NO NO Blood Gas Inspired Oxygen 60%VAPOTHERM 50% 40L Lactic Acid Level 0.61 0.50-2.00 MMOL/L Physical Exam Vital Signs Vital Signs - First Documented 09/07/18 11:14 FiO2 100 Capillary Refill : Less Than 3 Seconds Height, Weight, BMI Height: 5'9.00" Weight: 208lbs. 0.1oz. 94.548994wz; 25.3 BMI Method:Stated General Appearance: WD/WN, Severe Distress Eyes: Bilateral Eye Normal Inspection, Bilateral Eye PERRL, Bilateral Eye EOMI HEENT: PERRL/EOMI Neck: Normal Inspection Respiratory: Crackles, Respiratory Distress, Rhonci Cardiovascular: Normal Peripheral Pulses, Systolic Murmur, Irregularly Irregular, Tachycardia Gastrointestinal: Soft, Abnormal Bowel Sounds, Distended Back: No Vertebral Tenderness Extremity: Normal Capillary Refill, No Calf Tenderness, No Pedal Edema Neurologic/Psychiatric: Alert Skin: Normal Color, Warm/Dry Lymphatic: No Adenopathy A/P-Cardiology Admission Diagnosis Atrial fibrillation Septic shock Acute abdomen Squamous cell carcinoma Assessment/Plan New-onset atrial fibrillation without ventricular response, started on Cardizem drip, heart rate is better, add digoxin and monitor closely. Status post pyloric perforation with acute abdomen, underwent surgical repair with emergency surgery, recovering slowly Acute on chronic respiratory failure, patient was extubated yesterday, currently on Vapotherm and still having respiratory distress and shortness of breath, decision was made on DO NOT INTUBATE by the patient and his family Hypotensive shock, septic shock, receiving IV fluid, may not tolerate Cardizem drip. Metastatic squamous cell carcinoma to the lung diagnosed in August 2016, has not seen an oncologist yet Acute renal failure secondary to hypotensive and multiorgan failure, continue to monitor renal function Anemia, managed by primary care team Lactic acidosis, continue supportive care Clinical Quality Measures DVT/VTE Risk/Contraindication: Risk Factor Score Per Nursin RFS Level Per Nursing on Admit: 4+=Very High BRANDEN BANDA MD Sep 10, 2018 10:03
[2018-09-10] MEDS: FLUCONAZOLE 200 MG/100 ML 50 ML IV SCH (10:58)
[2018-09-10] MEDS: morphine INJ 4 MG/ML 1 ML (VIAL/SYRINGE) IVP PRN ×3 (10:59→21:00)
[2018-09-10 11:07] LABS: ABG OXYGEN SATURATION 72 % (94-100); ABG PCO2 50 MMHG (35-45); ABG TCO2 25.4 MMOL/L (21.0-31.0)
[2018-09-10 11:09] LABS: ABG PH 7.29 (7.37-7.43); ABG PO2 38 MMHG (79-93); ALLENS TEST POSITIVE; INSPIRED O2 50% BIPAP; PATIENT TEMP 96.6; VENTILATOR NO
--- NOTE | 2018-09-10 11:30 | NUR ---
Pastoral care visit with pts , she shared her feelings and concerns, I provided support and listening, I then joined her in at pts bedside with son also present offered prayer for their situation, pt was awake and alert.
[2018-09-10] MEDS ORDERED: SODIUM BICARB 8.4% 50 MEQ/50 ML (ABBOTT) SYR IV ONE (12:30)
[2018-09-10] MEDS: cefTRIAXone 2 GM/NS 50 ML IVPB IV SCH ×2 (15:00)
[2018-09-10] MEDS: PANTOPRAZOLE 40 MG (PROTONIX) VIAL IV SCH (21:00)
[2018-09-11] VITALS (27 sets, daily range): BP systolic 116–152; BP diastolic 72–96
[2018-09-11] MEDS: D5 LR IV SOLUTION 1,000 ML IV SCH ×3 (01:00→17:37)
[2018-09-11] MEDS: RT-ALBUTEROL/IPRATROPIUM 3 ML (DUONEB) VIAL INH SCH ×6 (02:34→22:12)
[2018-09-11] MEDS: morphine INJ 4 MG/ML 1 ML (VIAL/SYRINGE) IVP PRN ×5 (03:43→20:21)
[2018-09-11 04:00] LABS: BASOPHILS % (AUTO) 0 % (0-10); EOSINOPHILS % (AUTO) 0 % (0-10); HEMATOCRIT 25 % (40-54); HEMOGLOBIN 8.3 G/DL (13.3-17.7); LYMPHOCYTES # (AUTO) 0.3 X 10^3 (1.0-4.0); LYMPHOCYTES % (AUTO) 1 % (12-44); MEAN CORPUSCULAR HEMOGLOBIN 29 PG (25-34); MEAN CORPUSCULAR HGB CONC 33 G/DL (32-36); MEAN CORPUSCULAR VOLUME 88 FL (80-99); MEAN PLATELET VOLUME 11.5 FL (7.4-10.4); MONOCYTES # (AUTO) 0.2 X 10^3 (0.0-1.0); MONOCYTES % (AUTO) 1 % (0-12); NEUTROPHILS % (AUTO) 98 % (42-75); PLATELET COUNT 174 10^3/uL (130-400); WHITE BLOOD COUNT 29.5 10^3/uL (4.3-11.0)
[2018-09-11] MEDS: DILTIAZEM INJECTION 125 MG in NS (IVPB) 100 ML IV SCH (04:13)
[2018-09-11 04:21] LABS: BUN/CREATININE RATIO 14; CALCIUM 8.4 MG/DL (8.5-10.1); CARBON DIOXIDE 22 MMOL/L (21-32); CHLORIDE 114 MMOL/L (98-107); CREATININE SERUM 3.88 MG/DL (0.60-1.30); GFR ESTIMATED 16; GLUCOSE 159 MG/DL (70-105); MAGNESIUM 1.9 MG/DL (1.8-2.4); PHOSPHORUS 4.9 MG/DL (2.3-4.7); POTASSIUM 4.3 MMOL/L (3.6-5.0); SODIUM 150 MMOL/L (135-145)
[2018-09-11 04:26] LABS: ABG BASE EXCESS -0.5 MMOL/L (-2.5-2.5); ABG OXYGEN SATURATION 92 % (94-100); ABG PCO2 47 MMHG (35-45); ABG PO2 59 MMHG (79-93)
[2018-09-11 04:30] LABS: ALLENS TEST YES-POS; INSPIRED O2 35% BIPAP; PATIENT TEMP 98.6; VENTILATOR NO
[2018-09-11 04:31] LABS: ABG PH 7.34 (7.37-7.43)
--- NOTE | 2018-09-11 05:34 | Pulmonary Progress Note ---
Subjective Time Seen by a Provider: 05:43 Subjective/Events-last exam PT is currently on BiPAP. Sepsis Event Evaluation Height, Weight, BMI Height: 5'9.00" Weight: 208lbs. 0.1oz. 94.103428cf; 25.3 BMI Method:Stated Focused Exam Lactate Level 09/10/18 08:45: Lactic Acid Level 0.61 Time of Focused Exam: 07:35 Exam Exam Vital Signs Date Time Temp Pulse Resp B/P (MAP) Pulse Ox O2 Delivery O2 Flow Rate FiO2 09/11/18 05:00 82 15 134/80 (98) 94 Nasal Cannula 35.00 09/11/18 04:16 95 26 95 35.00 09/11/18 04:07 97.4 09/11/18 04:00 103 22 140/93 (109) 94 Nasal Cannula 35.00 09/11/18 04:00 94 NIV Bilevel 40.00 09/11/18 03:00 93 22 126/79 (95) 94 Nasal Cannula 35.00 09/11/18 02:35 Nasal Cannula 35.00 09/11/18 02:34 87 17 96 40.00 09/11/18 02:00 90 21 125/79 (94) 96 Nasal Cannula 40.00 09/11/18 01:00 80 17 123/72 (89) 96 Nasal Cannula 40.00 09/11/18 01:00 84 09/11/18 00:35 80 20 95 40.00 09/11/18 00:04 98.3 NIV Bilevel 40.00 09/11/18 00:00 96 27 123/76 (92) 95 Nasal Cannula 09/11/18 00:00 94 NIV Bilevel 40.00 09/10/18 23:00 81 22 119/72 (88) 96 NIV Bilevel 40.00 09/10/18 22:21 78 28 96 40.00 09/10/18 22:00 74 16 121/70 (87) 95 NIV Bilevel 40.00 09/10/18 21:00 84 26 125/76 (92) 94 NIV Bilevel 40.00 09/10/18 20:19 80 22 95 40.00 09/10/18 20:00 73 18 123/75 (91) 95 NIV Bilevel 40.00 09/10/18 20:00 94 NIV Bilevel 40.00 09/10/18 19:50 98.2 NIV Bilevel 40.00 09/10/18 19:01 72 09/10/18 19:00 75 22 116/73 (87) 95 NIV Bilevel 09/10/18 18:25 74 21 96 40.00 09/10/18 18:00 77 24 119/82 (94) 95 Vapotherm 60.00 35.00 09/10/18 18:00 98.1 09/10/18 17:07 71 22 97 50.00 09/10/18 17:00 73 23 117/78 (91) 97 Vapotherm 60.00 35.00 09/10/18 17:00 98.4 09/10/18 16:00 NIV Bilevel 09/10/18 16:00 73 22 118/76 (90) 97 Vapotherm 60.00 35.00 09/10/18 15:06 70 28 97 50.00 09/10/18 15:00 68 18 104/63 (77) 97 Vapotherm 60.00 35.00 09/10/18 14:00 68 22 111/66 (81) 96 Vapotherm 60.00 35.00 09/10/18 13:42 67 21 97 50.00 09/10/18 13:00 66 21 105/64 (78) 97 Vapotherm 60.00 35.00 09/10/18 12:44 65 09/10/18 12:00 62 25 96/58 (71) 98 Vapotherm 60.00 35.00 09/10/18 12:00 NIV Bilevel 09/10/18 11:00 91 22 98/75 (83) 97 Vapotherm 60.00 35.00 09/10/18 11:00 97.6 09/10/18 10:57 83 23 97 50.00 09/10/18 10:00 87 21 108/82 (91) 99 Vapotherm 60.00 35.00 09/10/18 09:25 87 21 96 50.00 09/10/18 09:00 100 20 114/77 (89) 94 Vapotherm 60.00 35.00 09/10/18 08:35 98.9 92 22 106/69 95 Vapotherm 40.00 50 09/10/18 08:00 103 21 106/69 (81) 94 Vapotherm 60.00 35.00 09/10/18 08:00 Nasal Cannula 3.00 09/10/18 07:22 116 09/10/18 07:00 111 20 115/73 (87) 94 Vapotherm 60.00 35.00 09/10/18 06:32 93 Vapotherm 40.00 50 09/10/18 06:15 97.1 125 20 105/71 94 35.00 09/10/18 06:03 125 20 105/71 (82) 94 Vapotherm 60.00 35.00 09/10/18 05:30 97.1 112 21 128/73 94 35.00 I & O 09/11/18 07:00 Intake Total 1325 ml Output Total 1825 ml Balance -500 ml Height & Weight Height: 5'9.00" Weight: 208lbs. 0.1oz. 94.490153sv; 25.3 BMI Method:Stated General Appearance: WD/WN, Chronically ill, Cachetic, Mild Distress HEENT: PERRL/EOMI, Moist Mucous Membranes, Pharyngeal Erythema Neck: Full Range of Motion, Normal Inspection, Non Tender, Supple Respiratory: Chest Non Tender, Normal Breath Sounds, No Accessory Muscle Use, No Respiratory Distress, Crackles, Inspiration, Respiratory Distress Cardiovascular: No Edema, No Gallop, No JVD, No Murmur, Normal Peripheral Pulses, Irregularly Irregular, Tachycardia Capillary Refill: Less Than 3 Seconds Peripheral Pulses: 2+ Radial Pulses (R) Gastrointestinal: soft, tenderness (incisional, no signs of infection) Extremity: Pedal Edema, Swelling Neurologic/Psychiatric: Alert, Oriented x3, No Motor/Sensory Deficits, Normal Mood/Affect Skin: Normal Color, Warm/Dry Lymphatic: No Adenopathy Results Lab Laboratory Tests 09/10/18 03:55 09/10/18 14:18 09/11/18 03:45 Assessment/Plan Assessment/Plan s/p ex lap - dx pyloric perforation with placement of les patch -Continue Zosyn, Flagyl -Blanco cultures pending -Protonix Acute on chronic respiratory failure -Currently on BiPAP.-- trial off bipap this AM to Vapotherm Solumedrol 40 Q6 -Pain control/sedation Sepsis -Check CVP monitoring - IVF Squamous cell lung cancer dx 08/26 via bronch EBUS -Has not seen oncology yet Acute renal failure -IVF increase to 150 and give a 1 liter bolus Hypernatremia/hyperchloremia -Increase LR -Repeat bmp at 1300 Metabolic lactic acidosis -repeat 2 amps of bicarb Anemia- monitor -Transfuse 1 unit of PRBC Hx of COPD -SHIRA BISWAS DO Sep 11, 2018 05:34
[2018-09-11] MEDS: LACTATED RINGERS 1,000 ML IV SCH ×2 (05:47→15:34)
[2018-09-11] MEDS: methylPREDNISolone 40 MG/ML (Solu-MEDROL) VIAL IV SCH ×3 (05:47→17:33)
[2018-09-11] MEDS: POTASSIUM CL 10MEQ/50ML IVPB 50 ML IV SCH (05:48)
[2018-09-11] MEDS: MAGNESIUM 1 GM/100 ML IVPB 100 ML IV SCH (05:49)
[2018-09-11] MEDS: KCL 20 MEQ TAB (K-DUR) PO SCH (05:49)
[2018-09-11] MEDS: inSUlin ASPART (NovoLOG) 1 UNIT/0.01 ML (CHARGE PER UNIT) SQ SCH ×3 (05:52→17:37)
--- NOTE | 2018-09-11 09:10 | Diagnostic Imaging Report ---
INDICATION: Shortness of breath COMPARISON: 09/10/18 FINDINGS: Single view of the chest demonstrates stable support lines. Persistent but decreasing infiltrates are seen bilaterally. There is stable opacification of the right apex. Trace effusions are present bilaterally. There is no pneumothorax. IMPRESSION: 1. Persistent but decreasing bilateral pulmonary infiltrates. 2. Stable opacification right hemithorax. 3. Stable small effusions. Dictated by: Dictated on workstation # [id number]
--- NOTE | 2018-09-11 09:15 | NUR ---
PATIENT SATS READING 60S. UPON ENTERING THE ROOM, HE HAD REMOVED VAPOTHERM AND WAS ON RA. EXPLAINED TO PATIENT HE NEEDS TO KEEP IT ON. O2 SLOWLY CAME BACK UP TO 90S. PATIENT CONTINUES TO USE ACCESSORY MUSCLES WHILE BREATHING BUT WOULD LIKE TO STAY OFF THE BIPAP FOR A WHILE LONGER.
[2018-09-11] MEDS: DIGOXIN 0.25 MG/ML (LANOXIN) 2 ML AMP IV SCH (09:44)
[2018-09-11] MEDS: PANTOPRAZOLE 40 MG (PROTONIX) VIAL IV SCH ×2 (09:44→21:40)
[2018-09-11] MEDS: MEROPENEM 500 MG in NS (IVPB) 100 ML IV SCH ×2 (09:44→21:40)
[2018-09-11] MEDS: metroNIDAZOLE 500MG/100ML IVPB 100 ML IV SCH ×2 (09:45→15:33)
[2018-09-11] MEDS: FLUCONAZOLE 200 MG/100 ML 50 ML IV SCH (09:45)
--- NOTE | 2018-09-11 09:57 | Progress Note ---
Subjective Date Seen by a Provider: Sep 11, 2018 Time Seen by a Provider: 09:52 Subjective/Events-last exam patient off bipap and on vapotherm. wbc trending down, jeffery serous. cr increasing and urine output lower. off pressors. patient pain controlled. Not sure if he wants to continue. He is DNI DNR. No family at bedside. Focused Exam Lactate Level 09/10/18 08:45: Lactic Acid Level 0.61 Time of Focused Exam: 07:35 Objective Exam Vital Signs Date Time Temp Pulse Resp B/P (MAP) Pulse Ox O2 Delivery O2 Flow Rate FiO2 09/11/18 09:00 98.9 09/11/18 08:00 92 Vapotherm 20.00 50 09/11/18 08:00 118 18 127/88 (101) 100 Vapotherm 80.00 20.00 09/11/18 07:31 100 Vapotherm 80.00 20.00 09/11/18 07:22 96 Vapotherm 20.00 60 09/11/18 07:00 100 09/11/18 07:00 100 21 152/96 (114) 94 NIV Bilevel 35.00 09/11/18 06:00 94 18 142/82 (102) 94 NIV Bilevel 35.00 09/11/18 05:00 82 15 134/80 (98) 94 NIV Bilevel 35.00 09/11/18 04:16 95 26 95 35.00 09/11/18 04:07 97.4 09/11/18 04:00 103 22 140/93 (109) 94 NIV Bilevel 35.00 09/11/18 04:00 94 NIV Bilevel 40.00 09/11/18 03:00 93 22 126/79 (95) 94 NIV Bilevel 35.00 09/11/18 02:35 NIV Bilevel 35.00 09/11/18 02:34 87 17 96 40.00 09/11/18 02:00 90 21 125/79 (94) 96 NIV Bilevel 40.00 09/11/18 01:00 80 17 123/72 (89) 96 NIV Bilevel 40.00 09/11/18 01:00 84 09/11/18 00:35 80 20 95 40.00 09/11/18 00:04 98.3 NIV Bilevel 40.00 09/11/18 00:00 96 27 123/76 (92) 95 Nasal Cannula 09/11/18 00:00 94 NIV Bilevel 40.00 09/10/18 23:00 81 22 119/72 (88) 96 NIV Bilevel 40.00 09/10/18 22:21 78 28 96 40.00 09/10/18 22:00 74 16 121/70 (87) 95 NIV Bilevel 40.00 09/10/18 21:00 84 26 125/76 (92) 94 NIV Bilevel 40.00 09/10/18 20:19 80 22 95 40.00 09/10/18 20:00 73 18 123/75 (91) 95 NIV Bilevel 40.00 09/10/18 20:00 94 NIV Bilevel 40.00 09/10/18 19:50 98.2 NIV Bilevel 40.00 09/10/18 19:01 72 09/10/18 19:00 75 22 116/73 (87) 95 NIV Bilevel 09/10/18 18:25 74 21 96 40.00 09/10/18 18:00 77 24 119/82 (94) 95 Vapotherm 60.00 35.00 09/10/18 18:00 98.1 09/10/18 17:07 71 22 97 50.00 09/10/18 17:00 73 23 117/78 (91) 97 Vapotherm 60.00 35.00 09/10/18 17:00 98.4 09/10/18 16:00 NIV Bilevel 09/10/18 16:00 73 22 118/76 (90) 97 Vapotherm 60.00 35.00 09/10/18 15:06 70 28 97 50.00 09/10/18 15:00 68 18 104/63 (77) 97 Vapotherm 60.00 35.00 09/10/18 14:00 68 22 111/66 (81) 96 Vapotherm 60.00 35.00 09/10/18 13:42 67 21 97 50.00 09/10/18 13:00 66 21 105/64 (78) 97 Vapotherm 60.00 35.00 09/10/18 12:44 65 09/10/18 12:00 62 25 96/58 (71) 98 Vapotherm 60.00 35.00 09/10/18 12:00 NIV Bilevel 09/10/18 11:00 91 22 98/75 (83) 97 Vapotherm 60.00 35.00 09/10/18 11:00 97.6 09/10/18 10:57 83 23 97 50.00 09/10/18 10:00 87 21 108/82 (91) 99 Vapotherm 60.00 35.00 I & O 09/11/18 07:00 Intake Total 3325 ml Output Total 2090 ml Balance 1235 ml Capillary Refill : Less Than 3 Seconds General Appearance: WD/WN, Anxious, Chronically ill, Cachetic HEENT: PERRL/EOMI, Moist Mucous Membranes, Pharyngeal Erythema Neck: Full Range of Motion, Normal Inspection, Non Tender, Supple Respiratory: Chest Non Tender, Normal Breath Sounds, No Accessory Muscle Use, No Respiratory Distress, Crackles, Inspiration, Respiratory Distress Cardiovascular: Normal Peripheral Pulses, Irregularly Irregular, Tachycardia Peripheral Pulses: 2+ Radial Pulses (R) Gastrointestinal: soft, tenderness (incisional, no signs of infection, jeffery serous) Extremity: Pedal Edema, Swelling Neurologic/Psychiatric: Alert, Oriented x3, No Motor/Sensory Deficits, Normal Mood/Affect, technical agronomist II-XII Norm as Tested Skin: Normal Color, Warm/Dry Lymphatic: No Adenopathy Results Lab Laboratory Tests 09/10/18 10:59: Blood Gas Puncture Site RIGHT RADIAL, Blood Gas Patient Temperature 96.6, Arterial Blood pH 7.29*L, Arterial Blood Partial Pressure CO2 50H, Arterial Blood Partial Pressure O2 38*L, Arterial Blood HCO3 24, Arterial Blood Total CO2 25.4, Arterial Blood Oxygen Saturation 72L, Arterial Blood Base Excess -2.0 , Isaias Test POSITIVE, Blood Gas Ventilator Setting NO, Blood Gas Inspired Oxygen 50% BIPAP 09/10/18 12:20: Troponin I 0.085 09/10/18 12:32: Glucometer 119H 09/10/18 14:18: Hemoglobin 8.0L, Hematocrit 25L 09/10/18 17:56: Glucometer 125H 09/10/18 18:43: Troponin I 0.082 09/10/18 23:58: Glucometer 173H 09/11/18 03:45: White Blood Count 29.5H, Red Blood Count 2.87L, Hemoglobin 8.3L, Hematocrit 25L , Mean Corpuscular Volume 88, Mean Corpuscular Hemoglobin 29, Mean Corpuscular Hemoglobin Concent 33, Red Cell Distribution Width 15.0H, Platelet Count 174, Mean Platelet Volume 11.5H, Neutrophils (%) (Auto) 98H, Lymphocytes (%) (Auto) 1L, Monocytes (%) (Auto) 1, Eosinophils (%) (Auto) 0, Basophils (%) (Auto) 0, Neutrophils # (Auto) 29.0H, Lymphocytes # (Auto) 0.3L, Monocytes # (Auto) 0.2, Eosinophils # (Auto) 0.0, Basophils # (Auto) 0.0, Sodium Level 150H, Potassium Level 4.3, Chloride Level 114H, Carbon Dioxide Level 22, Anion Gap 14, Blood Urea Nitrogen 54H, Creatinine 3.88#H, Estimat Glomerular Filtration Rate 16, BUN /Creatinine Ratio 14, Glucose Level 159H, Calcium Level 8.4L, Phosphorus Level 4.9H, Magnesium Level 1.9, Digoxin Level < 0.30L 09/11/18 04:23: Blood Gas Puncture Site RT RAD, Blood Gas Patient Temperature 98.6, Arterial Blood pH 7.34*L, Arterial Blood Partial Pressure CO2 47H, Arterial Blood Partial Pressure O2 59L, Arterial Blood HCO3 25, Arterial Blood Total CO2 26.0, Arterial Blood Oxygen Saturation 92L, Arterial Blood Base Excess -0.5, Isaias Test YES-POS, Blood Gas Ventilator Setting NO, Blood Gas Inspired Oxygen 35% BIPAP Microbiology 09/07/18 Blood Culture - Final, Complete No growth 09/07/18 Gram Stain - Final, Complete 09/07/18 Anaerobic Culture - Final, Complete No anaerobes isolated 09/07/18 Surgical Culture - Final, Complete Enterobacter Cloacae Complex Gram Pos Mixed Bacterial Aylin 09/07/18 Gram Stain - Final, Complete 09/07/18 Sputum Culture - Final, Complete Usual oral aylin Assessment/Plan Assessment/Plan Assessment/Plan hollow viscus perforation septic shock acute renal failure metastatic lung cancer respiratory failure s/p ex lap les patch for pyloric perforation anemia continue iv abx change Zosyn to meropenem receiving IV fluid protonix NPO irene for accurate i/o continue to monitor anemia hold on lovenox due to anemia scd for dvt prophylaxis patient considering comfort care but DNI DNR at this time. Diagnosis/Problems Diagnosis/Problems (1) Shock, septic Status: Resolved Resolution Date/Time: 2/1/19 @ 12:08 (2) Intra-abdominal free air of unknown etiology Status: Acute (3) Perforated abdominal viscus Status: Acute (4) Metastatic squamous cell carcinoma to lung Status: Acute Qualifiers: Qualified Codes: C78.01 - Secondary malignant neoplasm of right lung (5) COPD exacerbation Status: Acute (6) Acute renal failure Status: Acute Qualifiers: Qualified Codes: N17.9 - Acute kidney failure, unspecified (7) Hypercalcemia Status: Acute (8) Hyponatremia Status: Acute (9) Atrial fibrillation Status: Chronic Qualifiers: Qualified Codes: I48.0 - Paroxysmal atrial fibrillation (10) Alcoholism Status: Chronic Clinical Quality Measures DVT/VTE Risk/Contraindication: Risk Factor Score Per Nursin RFS Level Per Nursing on Admit: 4+=Very High ALYX BIRD DO Sep 11, 2018 09:57
--- NOTE | 2018-09-11 11:16 | Progress Note-Hospitalist ---
Subjective HPI/CC On Admission Date Seen by Provider: Sep 11, 2018 Time Seen by Provider: 11:30 CC: Abdominal pain HPI: This is a 62 yo M w/ a hx of squamous cell carcinoma of the lung diagnosed within the last month who presented to the ER on Thursday morning with severe abdominal pain and dyspnea. Pt states he saw his PCP Thursday for what felt to him like increased GERD symptoms and associated back pain. On Thursday evening while eating dinner he felt "something pop" in his stomach and the pain worsened immensely. On arrival to the ED he was noted to be hypotensive and likely peritoneal with signs of an acute abdomen. CT/AP showed perforation and he was taken to OR for emergent surgery by Dr. Alegre. He was found to have a perforation of his pylorus which was repaired with James patch. Notably, the pt was still hypotensive after 3 L boluses of fluid on way to OR, indicating septic shock. Pt is DNR but desired surgery so was intubated at that time. Subjective/Events-last exam Patient at end of life and son at bedside I recommended other son to come and talk to him Creat 3.8 Patient becoming more dyspneic as minutes wear on DNR Review of Systems Pulmonary: Dyspnea Focused Exam Lactate Level 09/10/18 08:45: Lactic Acid Level 0.61 Time of Focused Exam: 07:35 Objective Exam Vital Signs Vital Signs Date Time Temp Pulse Resp B/P (MAP) Pulse Ox O2 Delivery O2 Flow Rate FiO2 09/11/18 13:00 98.1 09/11/18 12:00 95 Vapotherm 20.00 60 09/11/18 11:00 100 18 132/81 (98) Capillary Refill : Less Than 3 Seconds General Appearance: WD/WN, Moderate Distress (tachypneic) Results/Procedures Lab Laboratory Tests 09/10/18 14:18 09/11/18 03:45 Patient resulted labs reviewed. Imaging: Reviewed Imaging Films, Reviewed Imaging Report Assessment/Plan Assessment and Plan Assess & Plan/Chief Complaint Assessment: End of life status Septic shock PREM Perforated pylorus s/p Ex Lap w/ james patch repair Squamous cell carcinoma of lung w/mets Plan: process imminent Critical Care Critical Care: Critically Ill Patient Clinical Quality Measures DVT/VTE Risk/Contraindication: Risk Factor Score Per Nursin RFS Level Per Nursing on Admit: 4+=Very High CATARINA GILLESPIE DO Sep 11, 2018 11:16
[2018-09-11] MEDS ORDERED: MEROPENEM 500 MG in NS (IVPB) 100 ML IV SCH (12:00)
--- NOTE | 2018-09-11 12:27 | NUR ---
PATIENT IS ASKING QUESTIONS ABOUT STOPPING ALL MEDICAL TREATMENT. HE STATES HE IS "DONE" AND IS "TIRED OF THE FIGHT." PROVIDED COMFORT AND ANSWERS AT THIS TIME. PATIENT'S OLDEST SON WAS AT BEDSIDE AND VERBALIZED UNDERSTANDING OF THE ISSUE. PATIENT STATES HE WILL TALK WITH HIS WHEN SHE RETURNS TO THE ROOM. WILL CONTINUE TO MONITOR.
[2018-09-11] MEDS: cefTRIAXone 2 GM/NS 50 ML IVPB IV SCH ×2 (14:15)
--- NOTE | 2018-09-11 14:51 | Progress Note-Cardiology ---
Cardiology SOAP Progress Note Subjective: No cp or palp or syncope Shortness of breath and gen malaise persistent Objective: I&O/Vital Signs 09/11/18 09/11/18 09/11/18 09/11/18 03:00 04:00 04:00 04:07 Temp 97.4 Pulse 93 103 Resp 22 22 B/P (MAP) 126/79 (95) 140/93 (109) Pulse Ox 94 94 94 O2 Delivery NIV Bilevel NIV Bilevel NIV Bilevel O2 Flow Rate 35.00 40.00 35.00 09/11/18 09/11/18 09/11/18 09/11/18 04:16 05:00 06:00 07:00 Pulse 95 82 94 100 Resp 26 15 18 21 B/P (MAP) 134/80 (98) 142/82 (102) 152/96 (114) Pulse Ox 95 94 94 94 O2 Delivery NIV Bilevel NIV Bilevel NIV Bilevel O2 Flow Rate 35.00 35.00 35.00 35.00 09/11/18 09/11/18 09/11/18 09/11/18 07:00 07:22 07:31 08:00 Pulse 100 118 Resp 18 B/P (MAP) 127/88 (101) Pulse Ox 96 100 100 O2 Delivery Vapotherm Vapotherm Vapotherm O2 Flow Rate 20.00 80.00 80.00 20.00 20.00 FiO2 60 09/11/18 09/11/18 09/11/18 09/11/18 08:00 09:00 09:00 10:00 Temp 98.9 Pulse 102 96 Resp 17 15 B/P (MAP) 132/83 (99) 129/84 (99) Pulse Ox 92 99 99 O2 Delivery Vapotherm Vapotherm Vapotherm O2 Flow Rate 20.00 60.00 60.00 20.00 20.00 FiO2 50 09/11/18 09/11/18 09/11/18 09/11/18 10:44 11:00 11:09 12:00 Pulse 100 Resp 18 B/P (MAP) 132/81 (98) Pulse Ox 97 96 95 O2 Delivery Vapotherm Vapotherm Vapotherm Vapotherm O2 Flow Rate 60.00 60.00 20.00 20.00 20.00 20.00 FiO2 60 60 09/11/18 09/11/18 09/11/1819 12:00 13:00 13:00 13:00 Temp 97.5 98.1 Pulse 109 108 Resp 14 B/P (MAP) 125/74 (91) Pulse Ox 95 O2 Delivery Vapotherm O2 Flow Rate 60.00 20.00 09/11/18 09/11/18 14:00 14:34 Temp 98.3 Pulse Ox 97 O2 Delivery Vapotherm O2 Flow Rate 20.00 FiO2 60 09/11/18 00:00 Intake Total 1100 ml Output Total 1565 ml Balance -465 ml Weight (Pounds): 221 Weight (Ounces): 3.0 Weight (Calculated Kilograms): 100.796069 Constitutional: AAO x 3, well-developed, well-nourished Respiratory: No accessory muscle use; other (fair to good bilat air entry) Cardiovascular: regular rate-rhythm, S1 and S2, systolic murmur (soft MARILYNN at card base) Gastrointestional: distended; No audible bowel sounds; other (post surgery; NGT in place) Extremities: other (mild edema of all limbs); No clubbing, No cyanosis Neurologic/Psychiatric: grossly intact, power is 5/5 both on sides Skin: warm/dry, pallor; No rash on exposed areas, No ulcerations on exposed areas Results/Procedures: Labs Laboratory Tests 09/10/18 17:56: Glucometer 125H 09/10/18 18:43: Troponin I 0.082 09/10/18 23:58: Glucometer 173H 09/11/18 03:45: White Blood Count 29.5H, Red Blood Count 2.87L, Hemoglobin 8.3L, Hematocrit 25L , Mean Corpuscular Volume 88, Mean Corpuscular Hemoglobin 29, Mean Corpuscular Hemoglobin Concent 33, Red Cell Distribution Width 15.0H, Platelet Count 174, Mean Platelet Volume 11.5H, Neutrophils (%) (Auto) 98H, Lymphocytes (%) (Auto) 1L, Monocytes (%) (Auto) 1, Eosinophils (%) (Auto) 0, Basophils (%) (Auto) 0, Neutrophils # (Auto) 29.0H, Lymphocytes # (Auto) 0.3L, Monocytes # (Auto) 0.2, Eosinophils # (Auto) 0.0, Basophils # (Auto) 0.0, Sodium Level 150H, Potassium Level 4.3, Chloride Level 114H, Carbon Dioxide Level 22, Anion Gap 14, Blood Urea Nitrogen 54H, Creatinine 3.88#H, Estimat Glomerular Filtration Rate 16, BUN /Creatinine Ratio 14, Glucose Level 159H, Calcium Level 8.4L, Phosphorus Level 4.9H, Magnesium Level 1.9, Digoxin Level < 0.30L 09/11/18 04:23: Blood Gas Puncture Site RT RAD, Blood Gas Patient Temperature 98.6, Arterial Blood pH 7.34*L, Arterial Blood Partial Pressure CO2 47H, Arterial Blood Partial Pressure O2 59L, Arterial Blood HCO3 25, Arterial Blood Total CO2 26.0, Arterial Blood Oxygen Saturation 92L, Arterial Blood Base Excess -0.5, Isaias Test YES-POS, Blood Gas Ventilator Setting NO, Blood Gas Inspired Oxygen 35% BIPAP 09/11/18 12:14: Glucometer 177H 09/11/18 14:33: Microbiology 09/07/18 Blood Culture - Final, Complete No growth 09/07/18 Gram Stain - Final, Complete 09/07/18 Anaerobic Culture - Final, Complete No anaerobes isolated 09/07/18 Surgical Culture - Final, Complete Enterobacter Cloacae Complex Gram Pos Mixed Bacterial Aylin 09/07/18 Gram Stain - Final, Complete 09/07/18 Sputum Culture - Final, Complete Usual oral aylin Laboratory Tests 09/10/18 03:55 09/10/18 14:18 09/11/18 03:45 A/P: Assessment: PAF. Now NSR Status post pyloric perforation with acute abdomen, underwent surgical repair with emergency surgery on 09/07/18 Acute on chronic respiratory failure, improved Septic shock, improved Metastatic squamous cell carcinoma to the lung diagnosed in August 2016 Acute renal failure; probably ATN due to hypotension, managed by the ICU and hospitalist svces Post-op anemia, managed by ICU and hosp svces Plan: * I reviewed his records, interviewed him, and examined him. I also discussed his case with Dr Avilez, his processing tech, yesterday * Complex management due to multiple comorbidities * Rhythm has improved, but overall status doesn't appear much changed. Renal function is worse * Prognosis guarded * I spoke with him and his fam and answered CV-related questions JANIS QUEEN MD FACP FAC CCDS Sep 11, 2018 14:51
[2018-09-11 14:56] LABS: CALCIUM 8.6 MG/DL (8.5-10.1); CREATININE SERUM 4.05 MG/DL (0.60-1.30); POTASSIUM 4.6 MMOL/L (3.6-5.0)
[2018-09-11] MEDS ORDERED: LACTATED RINGERS 1,000 ML IV ONE (15:30)
--- NOTE | 2018-09-11 21:06 | NUR ---
Pt with increased work of breathing, lung sounds coarse/crackly, RT increased flow on vapotherm, see interventions for times. Pt requiring pain medication more frequently, E-ICU called to discuss pt condition.
[2018-09-11] MEDS ORDERED: morphine INJ 4 MG/ML 1 ML (VIAL/SYRINGE) IV PRN (21:45)
[2018-09-12] VITALS (12 sets, daily range): BP systolic 118–143; BP diastolic 69–99
[2018-09-12] MEDS: morphine INJ 4 MG/ML 1 ML (VIAL/SYRINGE) IV PRN ×3 (00:18→09:05)
[2018-09-12] MEDS: metroNIDAZOLE 500MG/100ML IVPB 100 ML IV SCH ×2 (00:19→09:03)
[2018-09-12] MEDS: methylPREDNISolone 40 MG/ML (Solu-MEDROL) VIAL IV SCH ×2 (00:19→06:09)
[2018-09-12] MEDS: inSUlin ASPART (NovoLOG) 1 UNIT/0.01 ML (CHARGE PER UNIT) SQ SCH ×2 (00:19→06:09)
[2018-09-12] MEDS: RT-ALBUTEROL/IPRATROPIUM 3 ML (DUONEB) VIAL INH SCH ×3 (02:28→10:41)
[2018-09-12 03:28] LABS: BASOPHILS % (AUTO) 0 % (0-10); EOSINOPHILS % (AUTO) 0 % (0-10); HEMATOCRIT 26 % (40-54); HEMOGLOBIN 8.5 G/DL (13.3-17.7); LYMPHOCYTES # (AUTO) 0.3 X 10^3 (1.0-4.0); LYMPHOCYTES % (AUTO) 1 % (12-44); MEAN CORPUSCULAR HEMOGLOBIN 30 PG (25-34); MEAN CORPUSCULAR HGB CONC 33 G/DL (32-36); MEAN CORPUSCULAR VOLUME 90 FL (80-99); MEAN PLATELET VOLUME 10.9 FL (7.4-10.4); MONOCYTES # (AUTO) 0.5 X 10^3 (0.0-1.0); MONOCYTES % (AUTO) 1 % (0-12); NEUTROPHILS # (AUTO) 40.1 X 10^3 (1.8-7.8); NEUTROPHILS % (AUTO) 98 % (42-75); PLATELET COUNT 204 10^3/uL (130-400); RED CELL DISTRIBUTION WIDTH 15.8 % (10.0-14.5)
[2018-09-12 03:46] LABS: CALCIUM 8.7 MG/DL (8.5-10.1); CREATININE SERUM 4.33 MG/DL (0.60-1.30); MAGNESIUM 2.2 MG/DL (1.8-2.4); PHOSPHORUS 6.4 MG/DL (2.3-4.7); POTASSIUM 4.5 MMOL/L (3.6-5.0)
[2018-09-12 04:25] LABS: WHITE BLOOD COUNT 40.9 10^3/uL (4.3-11.0)
[2018-09-12] MEDS: MAGNESIUM 1 GM/100 ML IVPB 100 ML IV SCH (06:09)
[2018-09-12] MEDS: KCL 20 MEQ TAB (K-DUR) PO SCH (06:09)
[2018-09-12] MEDS: POTASSIUM CL 10MEQ/50ML IVPB 50 ML IV SCH (06:09)
--- NOTE | 2018-09-12 06:22 | Pulmonary Progress Note ---
Subjective Time Seen by a Provider: 06:18 Subjective/Events-last exam Pt is currently unresponsive and appears worse then yesterday. Sepsis Event Evaluation Height, Weight, BMI Height: 5'9.00" Weight: 235lbs. 6.0oz. 106.123507wx; 25.3 BMI Method:Stated Focused Exam Lactate Level 09/10/18 08:45: Lactic Acid Level 0.61 Time of Focused Exam: 07:35 Exam Exam Vital Signs Date Time Temp Pulse Resp B/P (MAP) Pulse Ox O2 Delivery O2 Flow Rate FiO2 09/12/18 05:00 96 12 118/76 (90) 96 Vapotherm 60.00 30.00 09/12/18 04:00 95 Vapotherm 30.00 60 09/12/18 04:00 112 13 139/83 (101) 98 Vapotherm 60.00 30.00 09/12/18 03:00 108 11 133/75 (94) 97 Vapotherm 60.00 30.00 09/12/18 02:29 97 Vapotherm 30.00 60 09/12/18 02:00 98 11 123/81 (95) 97 Vapotherm 60.00 30.00 09/12/18 01:00 103 10 129/84 (99) 97 Vapotherm 60.00 30.00 09/12/18 01:00 111 09/12/18 00:00 106 13 143/99 (114) 97 Vapotherm 60.00 30.00 09/12/18 00:00 95 Vapotherm 30.00 60 09/11/18 23:00 102 10 117/72 (87) 97 Vapotherm 60.00 30.00 09/11/18 22:13 97 Vapotherm 30.00 60 09/11/18 22:00 105 12 116/76 (89) 98 Vapotherm 60.00 30.00 09/11/18 21:00 112 14 135/91 (106) 98 Vapotherm 60.00 30.00 09/11/18 20:21 98.9 Vapotherm 60.00 30.00 09/11/18 20:00 116 15 143/87 (105) 98 Vapotherm 60.00 20.00 09/11/18 20:00 95 Vapotherm 30.00 60 09/11/18 19:00 114 16 137/86 (103) 97 Vapotherm 60.00 20.00 09/11/18 19:00 114 09/11/18 18:26 97 Vapotherm 20.00 60 09/11/18 18:00 109 15 136/87 (103) 97 Vapotherm 60.00 20.00 09/11/18 17:00 111 18 148/83 (104) 98 Vapotherm 60.00 20.00 09/11/18 16:00 110 16 131/84 (100) 97 Vapotherm 60.00 20.00 09/11/18 16:00 95 Vapotherm 20.00 60 09/11/18 15:00 109 23 126/75 (92) 98 Vapotherm 60.00 20.00 09/11/18 15:00 98.3 09/11/18 14:34 97 Vapotherm 20.00 60 09/11/18 14:00 98.3 09/11/18 14:00 105 20 137/82 (100) 98 Vapotherm 60.00 20.00 09/11/18 13:00 98.1 09/11/18 13:00 108 09/11/18 13:00 109 14 125/74 (91) 95 Vapotherm 60.00 20.00 09/11/18 12:00 97.5 09/11/18 12:00 108 16 140/93 (109) 97 Vapotherm 60.00 20.00 09/11/18 12:00 95 Vapotherm 20.00 60 09/11/18 11:09 96 Vapotherm 20.00 60 09/11/18 11:00 100 18 132/81 (98) 97 Vapotherm 60.00 20.00 09/11/18 10:44 Vapotherm 60.00 20.00 09/11/18 10:00 96 15 129/84 (99) 99 Vapotherm 60.00 20.00 09/11/18 09:00 98.9 09/11/18 09:00 102 17 132/83 (99) 99 Vapotherm 60.00 20.00 09/11/18 08:00 92 Vapotherm 20.00 50 09/11/18 08:00 118 18 127/88 (101) 100 Vapotherm 80.00 20.00 09/11/18 07:31 100 Vapotherm 80.00 20.00 09/11/18 07:22 96 Vapotherm 20.00 60 09/11/18 07:00 100 09/11/18 07:00 100 21 152/96 (114) 94 NIV Bilevel 35.00 I & O 09/12/18 07:00 Intake Total 660 ml Output Total 1730 ml Balance -1070 ml Height & Weight Height: 5'9.00" Weight: 235lbs. 6.0oz. 106.507532zt; 25.3 BMI Method:Stated General Appearance: WD/WN, Moderate Distress (tachypneic) HEENT: PERRL/EOMI, Moist Mucous Membranes, Pharyngeal Erythema Neck: Full Range of Motion, Normal Inspection, Non Tender, Supple Respiratory: Chest Non Tender, Accessory Muscle Use, Crackles, Decreased Breath Sounds, Inspiration, Respiratory Distress Cardiovascular: Normal Peripheral Pulses, Irregularly Irregular, Tachycardia Capillary Refill: Less Than 3 Seconds Peripheral Pulses: 2+ Radial Pulses (R) Gastrointestinal: soft, tenderness (incisional, no signs of infection, jeffery serous) Extremity: Pedal Edema, Swelling Neurologic/Psychiatric: Alert, Oriented x3, No Motor/Sensory Deficits, Normal Mood/Affect, coil maker II-XII Norm as Tested Skin: Normal Color, Warm/Dry Lymphatic: No Adenopathy Results Lab Laboratory Tests 09/10/18 14:18 09/11/18 03:45 09/11/18 14:33 09/12/18 03:22 Assessment/Plan Assessment/Plan s/p ex lap - dx pyloric perforation with placement of les patch - Zosyn, Flagyl -Blanco cultures pending -Protonix Unresponsive/metabolic encephalopathy Acute on chronic respiratory failure -Currently on BiPAP.-- trial off bipap this AM to Vapotherm Solumedrol 40 Q6 -Pain control/sedation Sepsis -Check CVP monitoring - IVF Squamous cell lung cancer dx 08/26 via bronch EBUS -Has not seen oncology yet Acute renal failure -IVF increase to 150 and give a 1 liter bolus Hypernatremia/hyperchloremia -Increase LR -Repeat bmp at 1300 Metabolic lactic acidosis Anemia- monitor Hx of COPD -SVNS PT is currently unresponsive and appears to be actively dieing. He is DNR no intubation, no code. Family has been talking about making him PRECISION DEVICES INSPECTOR/TESTER. RN is calling family now. Update: family at bedside and wish to make patient PRECISION DEVICES INSPECTOR/TESTER. They understand he will probably today. PT is not wanting anything done. He is ready to stop all treatment. Critical Care: Critically Ill Patient Time spent with patient (mins): 60 SHIRA LOPEZ DO Sep 12, 2018 06:22
--- NOTE | 2018-09-12 07:15 | NUR ---
0610--This RN to room, pt unresponsive, breathing more irregular than previous assessment, pupils PERRLA 0615--Son Segundo and Awilda called, updated on pt condition 0645--Family at bedside, updated on pt 0700--Bedside report given to RHYS Tineo, discussed disease process and what to expect with family
--- NOTE | 2018-09-12 08:48 | Diagnostic Imaging Report ---
INDICATION: Shortness of air. TECHNIQUE: Single view chest 3:26 AM. CORRELATION STUDY: 09/11/2018 FINDINGS: Right IJ central line tip projects over the SVC. Gastric tube tip likely at the level of the gastroesophageal junction perhaps slightly retracted from prior study. Heart size and mediastinum remain unchanged. Consolidation about the right lung particularly at the lung apex and hilar region. Increasing infiltrate through large portion left lung. Likely bilateral pleural effusions. IMPRESSION: 1. Scattered areas of consolidation both lung cervantes most pronounced right upper lung field. However there appears to be increasing infiltrate and/or edema through large portion left lung on followup. Dictated by: Dictated on workstation # [id number]
[2018-09-12] MEDS: PANTOPRAZOLE 40 MG (PROTONIX) VIAL IV SCH (09:03)
[2018-09-12] MEDS: FLUCONAZOLE 200 MG/100 ML 50 ML IV SCH (09:03)
[2018-09-12] MEDS: MEROPENEM 500 MG in NS (IVPB) 100 ML IV SCH (09:03)
[2018-09-12] MEDS: DIGOXIN 0.25 MG/ML (LANOXIN) 2 ML AMP IV SCH (09:04)
--- NOTE | 2018-09-12 10:16 | Progress Note ---
Subjective Date Seen by a Provider: Sep 12, 2018 Time Seen by a Provider: 10:11 Subjective/Events-last exam Patient unresponsive. Family at bedside. Appears worse than yesterday. Family considering comfort care and is DNR no intubation. Focused Exam Lactate Level 09/10/18 08:45: Lactic Acid Level 0.61 Time of Focused Exam: 07:35 Objective Exam Vital Signs Date Time Temp Pulse Resp B/P (MAP) Pulse Ox O2 Delivery O2 Flow Rate FiO2 09/12/18 10:00 121 13 124/69 (87) 97 Vapotherm 60.00 30.00 09/12/18 09:00 114 15 127/74 (91) 97 Vapotherm 60.00 30.00 09/12/18 08:00 95 Vapotherm 30.00 60 09/12/18 08:00 112 10 127/79 (95) 97 Vapotherm 60.00 30.00 09/12/18 07:00 111 09/12/18 07:00 112 12 134/80 (98) 97 Vapotherm 60.00 30.00 09/12/18 06:41 97 Vapotherm 30.00 60 09/12/18 06:00 106 15 140/88 (105) 97 Vapotherm 60.00 30.00 09/12/18 05:00 96 12 118/76 (90) 96 Vapotherm 60.00 30.00 09/12/18 04:00 95 Vapotherm 30.00 60 09/12/18 04:00 112 13 139/83 (101) 98 Vapotherm 60.00 30.00 09/12/18 03:00 108 11 133/75 (94) 97 Vapotherm 60.00 30.00 09/12/18 02:29 97 Vapotherm 30.00 60 09/12/18 02:00 98 11 123/81 (95) 97 Vapotherm 60.00 30.00 09/12/18 01:00 103 10 129/84 (99) 97 Vapotherm 60.00 30.00 09/12/18 01:00 111 09/12/18 00:00 106 13 143/99 (114) 97 Vapotherm 60.00 30.00 09/12/18 00:00 95 Vapotherm 30.00 60 09/11/18 23:00 102 10 117/72 (87) 97 Vapotherm 60.00 30.00 09/11/18 22:13 97 Vapotherm 30.00 60 09/11/18 22:00 105 12 116/76 (89) 98 Vapotherm 60.00 30.00 09/11/18 21:00 112 14 135/91 (106) 98 Vapotherm 60.00 30.00 09/11/18 20:21 98.9 Vapotherm 60.00 30.00 09/11/18 20:00 116 15 143/87 (105) 98 Vapotherm 60.00 20.00 09/11/18 20:00 95 Vapotherm 30.00 60 09/11/18 19:00 114 16 137/86 (103) 97 Vapotherm 60.00 20.00 09/11/18 19:00 114 09/11/18 18:26 97 Vapotherm 20.00 60 09/11/18 18:00 109 15 136/87 (103) 97 Vapotherm 60.00 20.00 09/11/18 17:00 111 18 148/83 (104) 98 Vapotherm 60.00 20.00 09/11/18 16:00 110 16 131/84 (100) 97 Vapotherm 60.00 20.00 09/11/18 16:00 95 Vapotherm 20.00 60 09/11/18 15:00 109 23 126/75 (92) 98 Vapotherm 60.00 20.00 09/11/18 15:00 98.3 09/11/18 14:34 97 Vapotherm 20.00 60 09/11/18 14:00 98.3 09/11/18 14:00 105 20 137/82 (100) 98 Vapotherm 60.00 20.00 09/11/18 13:00 98.1 09/11/18 13:00 108 09/11/18 13:00 109 14 125/74 (91) 95 Vapotherm 60.00 20.00 09/11/18 12:00 97.5 09/11/18 12:00 108 16 140/93 (109) 97 Vapotherm 60.00 20.00 09/11/18 12:00 95 Vapotherm 20.00 60 09/11/18 11:09 96 Vapotherm 20.00 60 09/11/18 11:00 100 18 132/81 (98) 97 Vapotherm 60.00 20.00 09/11/18 10:44 Vapotherm 60.00 20.00 I & O 09/12/18 07:00 Intake Total 660 ml Output Total 1730 ml Balance -1070 ml Capillary Refill : Less Than 3 Seconds General Appearance: WD/WN, Moderate Distress (tachypneic and labored breathing) HEENT: PERRL/EOMI, Moist Mucous Membranes, Pharyngeal Erythema Neck: Full Range of Motion, Normal Inspection, Non Tender, Supple Respiratory: Chest Non Tender, Accessory Muscle Use, Crackles, Decreased Breath Sounds, Inspiration, Respiratory Distress Cardiovascular: Normal Peripheral Pulses, Irregularly Irregular, Tachycardia Peripheral Pulses: 2+ Radial Pulses (R) Gastrointestinal: soft, tenderness (incisional, no signs of infection, jeffery serous) Extremity: Pedal Edema, Swelling Neurologic/Psychiatric: Other (does not answer questions, unresponsive) Skin: Normal Color, Warm/Dry Lymphatic: No Adenopathy Results Lab Laboratory Tests 09/11/18 12:14: Glucometer 177H 09/11/18 14:33: Sodium Level 149H, Potassium Level 4.6, Chloride Level 114H, Carbon Dioxide Level 23, Anion Gap 12, Blood Urea Nitrogen 58H, Creatinine 4.05H, Estimat Glomerular Filtration Rate 15, BUN/Creatinine Ratio 14, Glucose Level 189H, Calcium Level 8.6 09/12/18 03:22: Sodium Level 150H, Potassium Level 4.5, Chloride Level 115H, Carbon Dioxide Level 22, Anion Gap 13, Blood Urea Nitrogen 62H, Creatinine 4.33H, Estimat Glomerular Filtration Rate 14, BUN/Creatinine Ratio 14, Glucose Level 181H, Calcium Level 8.7, White Blood Count 40.9*H, Red Blood Count 2.87L, Hemoglobin 8.5L, Hematocrit 26L, Mean Corpuscular Volume 90, Mean Corpuscular Hemoglobin 30 , Mean Corpuscular Hemoglobin Concent 33, Red Cell Distribution Width 15.8H, Platelet Count 204, Mean Platelet Volume 10.9H, Neutrophils (%) (Auto) 98H, Lymphocytes (%) (Auto) 1L, Monocytes (%) (Auto) 1, Eosinophils (%) (Auto) 0, Basophils (%) (Auto) 0, Neutrophils # (Auto) 40.1H, Lymphocytes # (Auto) 0.3L, Monocytes # (Auto) 0.5, Eosinophils # (Auto) 0.0, Basophils # (Auto) 0.0, Phosphorus Level 6.4H, Magnesium Level 2.2 Microbiology 09/07/18 Blood Culture - Final, Complete No growth 09/07/18 Gram Stain - Final, Complete 09/07/18 Anaerobic Culture - Final, Complete No anaerobes isolated 09/07/18 Surgical Culture - Final, Complete Enterobacter Cloacae Complex Gram Pos Mixed Bacterial Aylin 09/07/18 Gram Stain - Final, Complete 09/07/18 Sputum Culture - Final, Complete Usual oral aylin Assessment/Plan Assessment/Plan Assessment/Plan hollow viscus perforation septic shock acute renal failure metastatic lung cancer respiratory failure s/p ex lap les patch for pyloric perforation anemia continue iv abx receiving IV fluid protonix NPO irene for accurate i/o continue to monitor anemia hold on lovenox due to anemia scd for dvt prophylaxis patient family considering comfort care but DNI DNR at this time. Patient appears to be actively dieing. All families questions answered. Diagnosis/Problems Diagnosis/Problems (1) Shock, septic Status: Resolved Resolution Date/Time: 09/10/18 @ 12:08 (2) Intra-abdominal free air of unknown etiology Status: Acute (3) Perforated abdominal viscus Status: Acute (4) Metastatic squamous cell carcinoma to lung Status: Acute Qualifiers: Qualified Codes: C78.01 - Secondary malignant neoplasm of right lung (5) COPD exacerbation Status: Acute (6) Acute renal failure Status: Acute Qualifiers: Qualified Codes: N17.9 - Acute kidney failure, unspecified (7) Hypercalcemia Status: Acute (8) Hyponatremia Status: Acute (9) Atrial fibrillation Status: Chronic Qualifiers: Qualified Codes: I48.0 - Paroxysmal atrial fibrillation (10) Alcoholism Status: Chronic Clinical Quality Measures DVT/VTE Risk/Contraindication: Risk Factor Score Per Nursin RFS Level Per Nursing on Admit: 4+=Very High ALYX BIRD DO Sep 12, 2018 10:16
--- NOTE | 2018-09-12 10:46 | NUR ---
rt entered patients room and asked family if they wanted me to do a SVN BT at this time; patient has been unresponsive with others but clearly stated that he did not want them. Family stated not to give it to him. RT told family if they needed anything to let us know.
[2018-09-12] MEDS ORDERED: LORazepam INJ 2 MG/ML (ATIVAN) VIAL IVP PRN (11:15)
[2018-09-12] MEDS ORDERED: morphine INJ 4 MG/ML 1 ML (VIAL/SYRINGE) IV PRN ×2 (11:15→11:45)
--- NOTE | 2018-09-12 12:03 | NUR ---
MADE PATIENT COMFORT CARE. PATIENT REFUSED ALL MEDICATIONS. VAPOTHERM REMOVED PER RT. NG TUBE REMOVED. SAFETY PRECAUTIONS IN PLACE. FAMILY AT BEDSIDE. MAINTAINING POC
--- NOTE | 2018-09-12 12:22 | Progress Note-Hospitalist ---
Subjective HPI/CC On Admission Date Seen by Provider: Sep 12, 2018 Time Seen by Provider: 11:00 CC: Abdominal pain HPI: This is a 62 yo M w/ a hx of squamous cell carcinoma of the lung diagnosed within the last month who presented to the ER on Thursday morning with severe abdominal pain and dyspnea. Pt states he saw his PCP Thursday for what felt to him like increased GERD symptoms and associated back pain. On Thursday evening while eating dinner he felt "something pop" in his stomach and the pain worsened immensely. On arrival to the ED he was noted to be hypotensive and likely peritoneal with signs of an acute abdomen. CT/AP showed perforation and he was taken to OR for emergent surgery by Dr. Alegre. He was found to have a perforation of his pylorus which was repaired with James patch. Notably, the pt was still hypotensive after 3 L boluses of fluid on way to OR, indicating septic shock. Pt is DNR but desired surgery so was intubated at that time. Subjective/Events-last exam Patient end-of-life status Updated and son Focused Exam Lactate Level 09/10/18 08:45: Lactic Acid Level 0.61 Time of Focused Exam: 07:35 Objective Exam Vital Signs Vital Signs Date Time Temp Pulse Resp B/P (MAP) Pulse Ox O2 Delivery O2 Flow Rate FiO2 09/12/18 11:00 112 10 125/80 (95) 97 Vapotherm 60.00 30.00 09/12/18 08:00 97.2 09/12/18 08:00 60 Capillary Refill : Less Than 3 Seconds General Appearance: Moderate Distress Neurologic/Psychiatric: Disoriented Results/Procedures Lab Laboratory Tests 09/11/18 14:33 09/12/18 03:22 Patient resulted labs reviewed. Imaging: Reviewed Imaging Films, Reviewed Imaging Report Assessment/Plan Assessment and Plan Assess & Plan/Chief Complaint Assessment: End of life status Septic shock PREM Perforated pylorus s/p Ex Lap w/ james patch repair Squamous cell carcinoma of lung w/mets Plan: process imminent Critical Care Critical Care: Critically Ill Patient Diagnosis/Problems Diagnosis/Problems (1) End of life care Status: Acute (2) Multisystem organ failure Status: Acute Clinical Quality Measures DVT/VTE Risk/Contraindication: Risk Factor Score Per Nursin RFS Level Per Nursing on Admit: 4+=Very High CATARINA GILLESPIE DO Sep 12, 2018 12:22
--- NOTE | 2018-09-12 14:59 | Discharge Summary-Hospitalist ---
Diagnosis/Chief Complaint Date of Admission Sep 07, 2018 at 12:00 Date of Discharge Admission Diagnosis Septic shock Respiratory failure ventilator dependent Pneumonia Perforated pyloric ulcer Peritonitis Profound leukocytosis of 78,000 Smoker Squamous cell lung cancer with metastasis Plan: Intubation Antibiotics IV fluids Pressor therapy Discharge Diagnosis (1) End of life care Status: Acute (2) Multisystem organ failure Status: Acute Discharge Summary Discharge Physical Exam Allergies: Coded Allergies: iodine (Verified Allergy, Unknown, 09/25/05) Vitals & I&Os Vital Signs Date Time Temp Pulse Resp B/P (MAP) Pulse Ox O2 Delivery O2 Flow Rate FiO2 09/12/18 11:00 112 10 125/80 (95) 97 Vapotherm 60.00 30.00 09/12/18 08:00 97.2 09/12/18 08:00 60 General Appearance: Other () Hospital Course Was the Problem List Reviewed?: Yes This is a 62-year-old white male presented after a perforated intestine taken to emergent surgery and repaired but remained intubated due to severe lung disease with lung cancer with metastasis. Patient required critical care management for several days and was able to be extubated under Dr. Bridges's expertise. Creatinine continued to rise along with multisystem organ failure and after several days he was placed Comfort Care and peacefully shortly after Comfort Care protocol started. Family at the bedside at time. Labs (last 24 hrs) Microbiology 09/07/18 Blood Culture - Final, Complete No growth 09/07/18 Gram Stain - Final, Complete 09/07/18 Anaerobic Culture - Final, Complete No anaerobes isolated 09/07/18 Surgical Culture - Final, Complete Enterobacter Cloacae Complex Gram Pos Mixed Bacterial Aylin 09/07/18 Gram Stain - Final, Complete 09/07/18 Sputum Culture - Final, Complete Usual oral aylin Patient resulted labs reviewed. Imaging: Reviewed Imaging Films, Reviewed Imaging Report Discussion & Recommendations Discharge Planning: <30 minutes discharge planning Discharge Home Medications: Active Scripts Active Reported Hydrocodone-Acetamin 5-325 mg (Hydrocodone/Acetaminophen) 1 Each Tablet 1-2 Tab PO Q6H PRN FILLED #30 TABLETS 08-27-18 Cyclobenzaprine HCl 10 Mg Tablet 5 Mg PO Q8H PRN TAKES 1/2 (10MG) TABLET Zyrtec (Cetirizine HCl) 10 Mg Tablet 10 Mg PO DAILY PRN Naproxen 500 Mg Tablet 500 Mg PO BID Vicks Nyquil Severe Cold-Flu (Dm/PE/Acetaminophen/Doxylamine) 236 Ml Liquid 30 Ml PO HS PRN One Daily Men's 50+ Tablet (Mv,Minerals/FA/Lycopene/Ginkgo) 1 Each Tablet 1 Tab PO DAILY Amlodipine Besylate 10 Mg Tablet 10 Mg PO DAILY Instructions to patient/family Please see electronic discharge instructions given to patient. Clinical Quality Measures DVT/VTE Risk/Contraindication: Risk Factor Score Per Nursin RFS Level Per Nursing on Admit: 4+=Very High CATARINA GILLESPEI DO Sep 12, 2018 14:59
--- NOTE | 2018-09-12 15:16 | NUR ---
PHYSICAL EXAM FOR 5 COMPLETE MINUTES, REVEAL NO RESPIRATORY EFFORT, NO BREATH SOUNDS. NO HEART TONES. NO PULSE. PRONOUNCED AT 1450 VIA MADELYN RN WITNESS, PETE HANEY SUP.
--- NOTE | 2018-09-12 16:21 | NUR ---
ALL DRAINS AND IV [facility]OVED. [facility]. FAMILY AT BEDSIDE, ALL QUESTIONS ANSWERED. PATIENT RELEASED AT 1620.
--- NOTE | 2018-09-16 14:22 | Physician Query Clarification ---
PQ-Uncertain Diagnosis Admission/Discharge Admission Date: Sep 07, 2018 at 12:00 Discharge Date: Sep 12, 2018 at 20:00 The medical record reflects the following clinical scenario: History/Risk Factors: met lung CA, septic shock, gastric ulcer w/perforation, acute on chronic respiratory failure Clinical Findings: crackles, decreased breath sounds, wheezing, 09/07 CXR RUL atelectasis and /or infiltrate, 09/10 CXR violeta pulminary infiltrates involving lt lung base and rt lung apex Treatment: IV Vancomycin, IV Piperacillin Question: Is Pneumonia a clinically valid diagnosis? Pneumonia was documented in the H&P and admission diagnosis of DS with no further documentation in the medical record. If, patient had pneumonia please clarify: 1. the type of pneumonia (viral, type undetermined) and 2.also if the pneumonia was present on admission or developed after admission. Please document a response below. In responding to this query, please exercise your independent professional judgment. The purpose of this communication is to more accurately reflect the complexity of your patients condition. The fact that a question is asked does not imply that any particular answer is desired or expected. Thank you for your timely response to this clarification. Requestors name: Stef THIS PHYSICIAN QUERY FORM IS A PERMANENT PART OF THE MEDICAL RECORD STEF ADAN Sep 16, 2018 14:22
== END 2018-09-12 20:00 | disposition expired | DRG 853 ==
LOC: EDUNIT# 04:16 → ER 04:19 → SDC 07:56 → ICU 12:00
PROVIDERS: ADMIT Surgery; ATTEND Surgery
PROC: 0DB70ZX Excision of Stomach, Pylorus, Open Approach, Diagnostic (ICD-10-PCS; 2018-09-07)
PROC: 5A1945Z Respiratory Ventilation, 24-96 Consecutive Hours (ICD-10-PCS; principal; 2018-09-07 09:12)
PROC: 0DU707Z Supplement Stomach, Pylorus with Autologous Tissue Substitute, Open Approach (ICD-10-PCS; 2018-09-07 09:12)
DX: A41.9 Sepsis, unspecified organism (principal); R65.21 Severe sepsis with septic shock; K25.5 Chronic or unspecified gastric ulcer with perforation; K65.9 Peritonitis, unspecified; C34.91 Malignant neoplasm of unspecified part of right bronchus or lung; J96.20 Acute and chronic respiratory failure, unspecified whether with hypoxia or hypercapnia; N17.9 Acute kidney failure, unspecified; J18.9 Pneumonia, unspecified organism; Z51.5 Encounter for palliative care; Z66 Do not resuscitate; C79.51 Secondary malignant neoplasm of bone; J44.1 Chronic obstructive pulmonary disease with (acute) exacerbation; E87.1 Hypo-osmolality and hyponatremia; J44.0 Chronic obstructive pulmonary disease with (acute) lower respiratory infection; G93.41 Metabolic encephalopathy; I34.1 Nonrheumatic mitral (valve) prolapse; I48.0 Paroxysmal atrial fibrillation; I10 Essential (primary) hypertension; K59.09 Other constipation; M19.91 Primary osteoarthritis, unspecified site; F32.9 Major depressive disorder, single episode, unspecified; F17.210 Nicotine dependence, cigarettes, uncomplicated; I48.2 Chronic atrial fibrillation; F10.20 Alcohol dependence, uncomplicated; E83.52 Hypercalcemia; E87.8 Other disorders of electrolyte and fluid balance, not elsewhere classified; Z91.5 Personal history of self-harm
CPT/HCPCS: 36415; 36600; 71045; 71250; 74176; 80048; 80053; 80162; 80202; 80320; 82150; 82805; 82962; 83605; 83690; 83735; 84100; 84478; 84484; 85007; 85014; 85018; 85025; 85027; 85610; 85730; 86850; 86900; 86901; 86920; 87040; 87070; 87075; 87077; 87186; 87205; 88305; 93041; 93306; 94002; 94003; 94640; 94660; 94799; 96361; 96365; 96367; 96368; 96375; 96376